=== PATIENT | male | born 1955 | race Caucasian/White ===

== ENCOUNTER 2016-04-09 12:55 | Outpatient (CLI) | payer MEDICAID | END 2016-04-09 12:56 | disposition home or self-care (01) | DX: E11.8 Type 2 diabetes mellitus with unspecified complications (principal); F32.9 Major depressive disorder, single episode, unspecified; Z12.5 Encounter for screening for malignant neoplasm of prostate ==

== ENCOUNTER 2016-10-01 21:09 | Emergency (ER) | payer MEDICAID ==
[2016-10-01 21:21] VITALS: BP 122/64
[2016-10-01] MEDS ORDERED: TETANUS/DIPHTHERIA/PERTUSSIS 0.5 ML SYRINGE IM ONE ×2 (21:32→21:47)
[2016-10-01] MEDS ORDERED: SULFAMETH/TRIMETH DS 800/160 MG TABLET PO STA (21:39)
[2016-10-01] MEDS ORDERED: CEPHALEXIN 250 MG Prepack 8 PO ONE ×2 (21:39→21:47)
[2016-10-01] MEDS ORDERED: oxyCODONE/ACET 5/325 Prepack 4 PO STA (21:39)
--- NOTE | 2016-10-01 21:43 | ED Physician Documentation ---
History of Present Illness - Stated complaint Stated Complaint: R BRIGHT PX - Chief complaint Chief Complaint: General - History obtained from History obtained from: Patient - History of Present Illness Timing: Other (Scratches right bright on a piece of wood a couple of days ago and today has increasing pain and redness without fevers. He is a long-standing diabetic.) Review of Systems Constitutional: denies: Fever, Chills Cardiac: denies: Chest pain / pressure, Palpitations Respiratory: denies: Dyspnea, Cough PD PAST MEDICAL HISTORY - Past Medical History Cardiovascular: High cholesterol Respiratory: Pneumonia, Other Endocrine/Autoimmune: Type 2 diabetes, HyPOthyroidism GI: GERD Psych: Depression, Anxiety - Past Surgical History Past Surgical History: Yes - Present Medications Home Medications: Ambulatory Orders Medication Instructions Recorded Confirmed Glucagon [Glucagen] 1 mg SUBQ ONCE PRN 12/10/13 07/03/15 Levothyroxine [Synthroid] 150 mcg PO DAILY 12/10/13 07/03/15 Lisinopril 2.5 mg PO DAILY 12/10/13 07/03/15 Lovastatin 40 mg PO QPM 12/10/13 07/03/15 raNITIdine [Zantac] 75 mg PO DAILY 12/10/13 07/03/15 Insulin Glargine,Hum.rec.anlog 21 units SUBQ QDDINNER 12/11/13 07/03/15 [Lantus] Aspirin [Adult Low Dose Aspirin EC] 81 mg PO DAILY 07/03/15 07/03/15 Bupropion HCl [Wellbutrin] 100 mg PO DAILY 07/03/15 07/03/15 Cholecalciferol (Vitamin D3) 50,000 unit PO Q7D 07/03/15 07/03/15 [Vitamin D] Duloxetine HCl [Cymbalta] 60 mg PO DAILY 07/03/15 07/03/15 Gabapentin 600 mg PO BID 07/03/15 07/03/15 Insulin Aspart [Novolog] 3 - 7 unit SQ ACHS 07/03/15 07/03/15 Cephalexin [Keflex] 500 mg PO QID #30 capsule 10/01/16 Oxycodone HCl/Acetaminophen 1 - 2 tab PO Q4H PRN #7 tablet 10/01/16 [Percocet 5-325 mg Tablet] Sulfamethoxazole/Trimethoprim 1 each PO BID 7 Days 10/01/16 [Sulfamethoxazole-Tmp Ds Tablet] - Allergies Allergies/Adverse Reactions: Allergies Allergy/AdvReac Type Severity Reaction Status Date / Time No Known Drug Allergies Allergy Verified 10/01/16 21:21 - Social History Does the pt smoke?: Yes Smoking Status: Current every day smoker Does the pt drink ETOH?: Yes Does the pt have substance abuse?: No PD ED PE NORMAL - Vitals Vital signs reviewed: Yes - General General: Alert and oriented X 3, No acute distress - Extremities Extremities: Other (On the anterior right bright there is a linear abrasion with a small amount of purulent material obtained and sent for culture with mild surrounding cellulitis, no obvious rest pain or pain with passive range of motion.) - Neuro Neuro: Alert and oriented X 3, Normal speech - Psych Psych: Normal mood, Normal affect Results - Vitals Vitals: Vital Signs - 24 hr 10/01/16 21:18 Temperature 36.6 C Heart Rate 91 Respiratory 18 Rate Blood Pressure 122/64 O2 Saturation 98 Oxygen O2 Source Room air PD MEDICAL DECISION MAKING - ED course ED course: The patient was counseled as to the diagnosis and need for follow-up. I counseled the patient with regard to signs and symptoms that would necessitate an urgent reevaluation in the emergency department. They understand they are welcome to return at any time if worse or if not improving as expected. This document was made in part using voice recognition software. While efforts are made to proofread this documents, sound alike and grammatical errors may occur. Departure - Departure Disposition: 01 Home, Self Care Clinical Impression: Cellulitis of leg without foot, right Condition: Good Record reviewed to determine appropriate education?: Yes Instructions: Cellulitis Dc Prescriptions: Cephalexin [Keflex] 500 mg PO QID #30 capsule Oxycodone HCl/Acetaminophen [Percocet 5-325 mg Tablet] 1 - 2 tab PO Q4H PRN #7 tablet PRN Reason: Pain Sulfamethoxazole/Trimethoprim [Sulfamethoxazole-Tmp Ds Tablet] 1 each PO BID 7 Days Comments: We are performing a wound culture, the results should be done in 48-72 hours. If antibiotic change is necessary we will call you. Return if worse in the meantime, especially if he develop increased pain, fevers, cannot keep down the medication. Otherwise follow-up with your physician in approximately 2-3 days. Follow-up with your physician in about 3 days for recheck, return if worse.
[2016-10-01] MEDS ORDERED: SULFAMETH/TRIMETH DS 800/160 MG TABLET PO ONE (21:46)
[2016-10-01] MEDS ORDERED: oxyCODONE/ACET 5/325 Prepack 4 PO ONE (21:46)
== END 2016-10-01 21:55 | disposition home or self-care (01) ==
LOC: ED 21:09
DX: L03.115 Cellulitis of right lower limb (principal); S80.811A Abrasion, right lower leg, initial encounter; E03.9 Hypothyroidism, unspecified; Z79.4 Long term (current) use of insulin; F17.200 Nicotine dependence, unspecified, uncomplicated; E11.9 Type 2 diabetes mellitus without complications; E78.00 Pure hypercholesterolemia, unspecified; Z23 Encounter for immunization; W45.8XXA Other foreign body or object entering through skin, initial encounter
CPT/HCPCS: 87070; 87181; 87205; 90471; 90715; 99282; 99283; A9270

== ENCOUNTER 2017-08-02 17:10 | Emergency (ER) | payer MEDICAID ==
[2017-08-02 17:31] VITALS: BP 137/73
--- NOTE | 2017-08-02 18:42 | XRAY Preliminary Report ---
Exam: XR HIP W/PELVIS 2-3V RT IMPRESSION: 1. Suspect remote osteochondral injury superior attachment of the right hip joint capsule. 2. L4-L5 fusion. 3. No acute bony abnormality. [facility] SITE ID: [id number]
--- NOTE | 2017-08-02 18:53 | XRAY Report ---
EXAM: RIGHT HIP AND PELVIS RADIOGRAPHY EXAM DATE: 08/02/2017 06:28 PM. HISTORY: Fall. Right hip pain. COMPARISONS: CT abdomen and pelvis 05/20/2012. TECHNIQUE: 1 view of the pelvis and 1 view of the hip. FINDINGS: Bones: Normal. No fracture or bone lesion. Joints: Stable 1.5 x 1 cm subcortical sclerosis and cyst formation along the lateral aspect superior margin o f the right acetabular roof. This is most likely due to remote osteochondral injury. Hip joints otherwise unremarkable. L4-L5 fusion. Soft Tissues: Normal. No soft tissue swelling. IMPRESSION: 1. Suspect remote osteochondral injury superior attachment of the right hip joint capsule. 2. L4-L5 fusion. 3. No acute bony abnormality. [facility] Referring Provider Line: [phone] SITE ID: [id number]
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
[2017-08-02] MEDS ORDERED: oxyCODONE 5 MG TABLET PO STA (19:34)
[2017-08-02] MEDS ORDERED: NAPROXEN 250 MG TABLET PO STA (19:35)
== END 2017-08-02 20:06 | disposition home or self-care (01) ==
LOC: ED 17:10
DX: S00.03XA Contusion of scalp, initial encounter (principal); S30.0XXA Contusion of lower back and pelvis, initial encounter; S06.0X1A Concussion with loss of consciousness of 30 minutes or less, initial encounter; W18.09XA Striking against other object with subsequent fall, initial encounter; Y92.513 Shop (commercial) as the place of occurrence of the external cause; E03.9 Hypothyroidism, unspecified; E78.00 Pure hypercholesterolemia, unspecified; E11.9 Type 2 diabetes mellitus without complications; Z79.4 Long term (current) use of insulin; Z79.82 Long term (current) use of aspirin
CPT/HCPCS: 73502; 99281; 99283; A9270

== ENCOUNTER 2018-02-06 02:32 | Inpatient (IN) | payer MEDICAID ==
--- NOTE | 2018-02-06 03:35 | XRAY Report ---
Reason: left chest pain after falling. Procedure Date: 02/06/2018 Accession Number: [id number] / [id number] Procedure: XR - Ribs w/PA Chest LT CPT Code: FULL RESULT: EXAM: LEFT RIB RADIOGRAPHY EXAM DATE: 02/06/2018 03:06 AM. CLINICAL HISTORY: Left chest pain after falling. COMPARISON: 10/26/2012 11:13 AM. TECHNIQUE: 1 view of the chest and 4 views of the ribs. FINDINGS: Bones: Displaced fourth through sixth rib fractures at least. Lungs: Moderate to large left pneumothorax measuring up to 5 cm from the apex. Small left pleural effusion. Right lung grossly clear. Mediastinum: No mediastinal shift. Heart size normal. Pneumomediastinum present tracking up to the neck. Other: Soft tissue gas present in the left hemithorax. IMPRESSION: 1. Moderate to large left pneumothorax. Trace left hemothorax. No mediastinal shift. 2. Displaced left fourth through sixth rib fractures at least. 3. Pneumomediastinum is presumably dissecting from the pneumothorax. [facility] The above findings were discussed with Andre Mosley by Dr. Kehinde Ann at 03:34 hrs on 02/06/18.
[2018-02-06] MEDS ORDERED: fentaNYL 100 MCG/2 ML VIAL IVP STA (03:36)
[2018-02-06] MEDS ORDERED: LIDOCAINE MPF 1%-EPI 1:200000 30 ML VIAL SUBQ STA (03:38)
--- NOTE | 2018-02-06 04:46 | XRAY Report ---
Reason: s/p chest tube placement Procedure Date: 02/06/2018 Accession Number: [id number] / [id number] Procedure: XR - Chest 1 View X-Ray CPT Code: 64780 FULL RESULT: EXAM: CHEST RADIOGRAPHY EXAM DATE: 02/06/2018 04:20 AM. CLINICAL HISTORY: Status post chest tube placement. Pneumothorax follow-up. COMPARISON: RIBS W/PA CHEST LT 02/06/2018 3:06 AM. TECHNIQUE: 1 view. FINDINGS: Lungs/Pleura: New left chest tube present. Decrease in left pneumothorax, now small. Small left effusion not as well-seen currently. Right lung grossly clear. Mediastinum: No mediastinal shift. Normal heart size. Pneumomediastinum again noted. Other: Grossly stable soft tissue gas in the neck and left chest wall. Multiple left rib fractures as seen earlier. IMPRESSION: Significant improvement in left pneumothorax post chest tube placement. [facility]
--- NOTE | 2018-02-06 04:48 | ED Physician Documentation ---
PD HPI Fall - Stated complaint Stated Complaint: SIDE PX/FALL - Chief complaint Chief Complaint: Trauma Ch/Bk - History obtained from History obtained from: Patient - History of Present Illness Mechanism of injury: Tripped Fall distance: Standing position Where injury occurred: Home Timing - onset: How many hours ago (6) Injury(ies) location: Chest Quality of pain: Pain Associated symptoms: Dyspnea Worsens with: Movement, Palpation, Other (deep inspiration) - Additional information Additional information: The patient is a 62-year-old male who stumbled on his steps at home and fell, impacting his left chest and left thigh when he fell. The incident occurred about 6 hours prior to arrival. He presents now because of progressively increasing pain on the left side of his chest. The pain is worse with movement or with respiratory inspiration. He denies abdominal pain, nausea or vomiting. He denies hitting his head or losing consciousness. He has been ambulatory since the incident occurred. Tetanus status is up-to-date. Past medical history is significant for insulin-dependent diabetes. Review of Systems Constitutional: denies: Fever Ears: denies: Tinnitus/ringing Nose: denies: Congestion Throat: denies: Sore throat Cardiac: reports: Chest pain / pressure. denies: Palpitations Respiratory: reports: Dyspnea (mild). denies: Cough GI: denies: Abdominal Pain, Nausea, Vomiting : denies: Dysuria, Incontinent Skin: reports: Abrasion (s) (left chest) Musculoskeletal: denies: Neck pain, Back pain, Joint pain Neurologic: denies: Focal weakness, Numbness, Head injury, LOC PD PAST MEDICAL HISTORY - Past Medical History Past Medical History: Yes Cardiovascular: High cholesterol Respiratory: Pneumonia, Other Neuro: Peripheral neuropathy Endocrine/Autoimmune: Type 2 diabetes, HyPOthyroidism GI: GERD Psych: Depression, Anxiety - Past Surgical History Past Surgical History: Yes - Present Medications Home Medications: Ambulatory Orders Medication Instructions Recorded Confirmed Glucagon [Glucagen] 1 mg SUBQ ONCE PRN 12/10/13 07/03/15 Levothyroxine [Synthroid] 150 mcg PO DAILY 12/10/13 07/03/15 Lisinopril 2.5 mg PO DAILY 12/10/13 07/03/15 Aspirin [Adult Low Dose Aspirin EC] 81 mg PO DAILY 07/03/15 07/03/15 Duloxetine HCl [Cymbalta] 60 mg PO DAILY 07/03/15 07/03/15 Gabapentin 600 mg PO BID 07/03/15 07/03/15 Insulin Aspart [Novolog] 3 - 7 unit SQ ACHS 07/03/15 07/03/15 - Allergies Allergies/Adverse Reactions: Allergies Allergy/AdvReac Type Severity Reaction Status Date / Time No Known Drug Allergies Allergy Verified 02/06/18 02:39 - Social History Does the pt smoke?: Yes Smoking Status: Current every day smoker Does the pt drink ETOH?: Yes Does the pt have substance abuse?: No Substance Use and Type: Marijuana - Immunizations Immunizations are current?: Yes - POLST Patient has POLST: No PD ED PE NORMAL - Vitals Vital signs reviewed: Yes (normal) - General General: Alert and oriented X 3, Well developed/nourished - HEENT HEENT: Atraumatic, EOMI, Pharynx benign - Neck Neck: No bony TTP, No adenopathy, No JVD, Other (No tracheal deviation.) - Cardiac Cardiac: RRR - Respiratory Respiratory: Other (Crepitus to palpation of the left chest wall. Decreased breath sounds on the left compared to the right.) - Abdomen Abdomen: Soft, Non tender - Back Back: No CVA TTP, No spinal TTP - Derm Derm: No rash - Extremities Extremities: No tenderness to palpate, Normal ROM s pain, No edema, No calf tenderness / cord - Neuro Neuro: Alert and oriented X 3, No motor deficit, No sensory deficit Results - Vitals Vitals: Vital Signs - 24 hr 02/06/18 02/06/18 02/06/18 02:34 03:49 04:10 Temperature 36.5 C Heart Rate 98 99 99 Respiratory 16 18 22 Rate Blood Pressure 116/60 141/81 H 128/75 O2 Saturation 100 93 93 02/06/18 02/06/18 02/06/18 04:17 04:28 04:50 Temperature Heart Rate 101 H 99 93 Respiratory 15 15 14 Rate Blood Pressure 143/79 H 127/74 126/71 O2 Saturation 95 96 93 Oxygen O2 Source Room air - Labs Labs: Laboratory Tests 02/06/18 02/06/18 03:50 03:50 WBC 12.8 H RBC 3.94 L Hgb 13.1 L Hct 39.2 L MCV 99.4 H MCH 33.2 H MCHC 33.4 RDW 14.8 Plt Count 340 MPV 6.8 L Neut # (Auto) 10.6 H Lymph # (Auto) 1.2 L [place] # (Auto) 0.9 Eos # (Auto) 0.1 Baso # (Auto) 0.0 Absolute Nucleated RBC 0.00 Nucleated RBC % 0.0 Sodium 128 L Potassium 4.6 Chloride 95 L Carbon Dioxide 24 Anion Gap 9.0 BUN 14 Creatinine 0.9 Estimated GFR (MDRD) 85 L Glucose 277 H Calcium 8.4 L Total Bilirubin 0.5 AST 68 H ALT 40 Alkaline Phosphatase 56 Total Protein 6.4 L Albumin 3.9 Globulin 2.5 Albumin/Globulin Ratio 1.6 Lipase 19 L Ethyl Alcohol 98.2 - Rads (name of study) PA chest with left ribs Radiology: Prelim report reviewed, EMP read contemporaneously, See rad report (1) Moderate to large left pneumothorax. Trace left hemothorax. No mediastinal shift. 2) Displaced left fourth through sixth rib fractures at least. 3) Pneumomediastinum is presumably dissecting from the pneumothorax.) Post chest tube placement Radiology: Prelim report reviewed, EMP read contemporaneously, See rad report (Significant improvement in left pneumothorax post chest tube placement.) Procedures - Chest Tube (location) left 4th anterior axillary line Chest tube preparation: Consent obtained, Time out completed, Sterile prep and drape Chest tube location: Left, Intercostal space - enter (4th), Anterior axillary line Chest tube anesthesia: Lidocaine, CC (enter) (3) Chest tube size: 14 Chest tube return: Air, Other (Suctioned 400 mL air.) Chest tube after care: Confirmed with xray, Pt tolerated well PD MEDICAL DECISION MAKING - ED course Complexity details: reviewed results, re-evaluated patient, considered differential, d/w patient, d/w family, d/w care consultant ED course: The patient's presentation is significant for left-sided pneumothorax, with rib fractures 4 through 6, caused by falling on his steps at home. There is minimal hemothorax. The only other injury detected is contusion to the left anterior thigh. Treatment in the emergency department included reexpansion of the left lung by insertion of a UreSil Thora vent. Postprocedure chest x-ray reveals significant improvement in the left pneumothorax. I discussed his condition with Dr. Bello, general surgeon data collection technician, and Dr. Kearney, the hospitalist. Dr. Kearney accepts the patient for further evaluation and treatment, and Dr. Bello will consult. Departure - Departure Disposition: ED Place in Observation Clinical Impression: Traumatic pneumothorax Qualifiers: Encounter type: initial encounter Qualified Code(s): S27.0XXA - Traumatic pneumothorax, initial encounter Multiple rib fractures Qualifiers: Encounter type: initial encounter Fracture type: closed Laterality: left Qualified Code(s): S22.42XA - Multiple fractures of ribs, left side, initial encounter for closed fracture Diabetes mellitus with hyperglycemia Qualifiers: Diabetes mellitus type: type 2 Diabetes mellitus nursing home insulin use: with ferry terminal agent use Qualified Code(s): E11.65 - Type 2 diabetes mellitus with hyperglycemia; Z79.4 - shelter (current) use of insulin Condition: Stable Discharge Date/Time: 02/06/18 06:08
[2018-02-06 04:52] LABS: BASOPHILS % (AUTO) 0.3 %; EOSINOPHILS # (AUTO) 0.1 10^3/uL (0.0-0.7); EOSINOPHILS % (AUTO) 0.4 %; HGB - HEMOGLOBIN 13.1 g/dL (14.0-18.0); LYMPHOCYTES # (AUTO) 1.2 10^3/uL (1.5-3.5); LYMPHOCYTES % (AUTO) 9.4 %; MEAN CORPUSCULAR HEMOGLOBIN 33.2 pg (27.0-31.0); MEAN CORPUSCULAR HGB CONC 33.4 g/dL (32.0-36.0); MEAN CORPUSCULAR VOLUME 99.4 fL (80.0-94.0); MEAN PLATELET VOLUME 6.8 fL (7.4-11.4); MONOCYTES # (AUTO) 0.9 10^3/uL (0.0-1.0); MONOCYTES % (AUTO) 6.7 %; NEUTROPHILS # (AUTO) 10.6 10^3/uL (1.5-6.6); NEUTROPHILS % (AUTO) 83.2 %; PLT - PLATELET COUNT 340 10^3/uL (130-450); RED BLOOD COUNT 3.94 10^6/uL (4.70-6.10); RED CELL DISTRIBUTION WIDTH 14.8 % (12.0-15.0); WHITE BLOOD COUNT 12.8 x10^3/uL (4.8-10.8)
[2018-02-06 05:02] LABS: ALBUMIN 3.9 g/dL (3.2-5.5); ALBUMIN/GLOBULIN RATIO 1.6 (1.0-2.2); BILIRUBIN,TOTAL 0.5 mg/dL (0.2-1.0); CALCIUM 8.4 mg/dL (8.5-10.3); CREATININE 0.9 mg/dL (0.6-1.2); TOTAL PROTEIN 6.4 g/dL (6.7-8.2)
[2018-02-06] MEDS ORDERED: ONDANSETRON 4 MG/2 ML VIAL IVP PRN (05:20)
[2018-02-06] MEDS ORDERED: ACETAMINOPHEN 325 MG TABLET PO PRN (05:20)
--- NOTE | 2018-02-06 05:30 | HISTORY & PHYSICAL EXAMINATION ---
Chief Complaint - Chief Complaint Chief Complaint: Rib pain History of Present Illness - Admitted From Admitted From:: ED - History Obtained From Records Reviewed: ED History obtained from: Patient and Dr Mosley Exam Limitations: None - History of Present Illness HPI Comment/Other: Mr Lassiter is a 62 yo male with PMH of type 1 DM on insulin pump, hypothyroid, and depression who was walking out of his porchi last evening approximately 8 pm when he tripped over his slppers and landed on concrete steps hitting his left side. He denied any syncope or near syncope and denies hitting his head. He had pain in the L chest wall and ribs, but tried to manage it at home with tylenol through the night but when the pain became worse he presented to the ED earlier this morning for evaluation. In the ED, he had a chest xray which showed a L sided pneumothorax and pneumomediastinum along with fractures of the L ribs 4-6. Dr Mosley put in a thoraseal in the ED which was followed by a repeat cxr showing rexpansion of the pneumothorax. Based on the significance of the pneumothorax pt will be placed in observation for pain control. Also, Dr Bello has been notified and will follow pt in the morning. History - Past Medical History Cardiovascular: reports: High cholesterol Respiratory: reports: Pneumonia, Other Neuro: reports: Peripheral neuropathy Endocrine/Autoimmune: reports: Type 1 diabetes (on inulin pump), Type 2 diabetes, HyPOthyroidism GI: reports: GERD Psych: reports: Depression, Anxiety Musculoskeletal: reports: None MRSA Hx?: No - Family & Social History Family History: Mother: Mental Illness, Father: CAD Living arrangement: At home Living Situation: With spouse/s.o. Social History Notes: Pt lives with significant other, engaged to be . Has two adult kids with whom he does not keep in regular touch. - Substance History Use: Uses substance without health or social issues: Tobacco, Cannabis - POLST Patient has POLST: No POLST Status: Full Code Meds/Allgy - Home Medications Home Medications: Ambulatory Orders Medication Instructions Recorded Confirmed Glucagon [Glucagen] 1 mg SUBQ ONCE PRN 12/10/13 07/03/15 Levothyroxine [Synthroid] 150 mcg PO DAILY 12/10/13 07/03/15 Lisinopril 2.5 mg PO DAILY 12/10/13 07/03/15 Aspirin [Adult Low Dose Aspirin EC] 81 mg PO DAILY 07/03/15 07/03/15 Duloxetine HCl [Cymbalta] 60 mg PO DAILY 07/03/15 07/03/15 Gabapentin 600 mg PO BID 07/03/15 07/03/15 Insulin Aspart [Novolog] 3 - 7 unit SQ ACHS 07/03/15 07/03/15 - Allergies Allergies/Adverse Reactions: Allergies Allergy/AdvReac Type Severity Reaction Status Date / Time No Known Drug Allergies Allergy Verified 02/06/18 02:39 Review of Systems - Constitutional Constitutional: denies: Fatigue - Eyes Eyes: denies: Blurred vision - Cardiovascular Cariovascular: reports: Chest pain. denies: Irregular heart rate, Lightheadedness - Respiratory Respiratory: reports: Pleuritic pain. denies: Cough, Wheezing, SOB at rest, SOB with exertion - Gastrointestinal Gastrointestinal: denies: Abdominal pain, Constipation, Diarrhea, Change in bowel habits - Musculoskeletal Musculoskeletal: reports: Muscle pain, Stiffness - Neurological Neurological: denies: General weakness, Headache, Dizziness - Psychiatric Psychiatric: reports: Depression - All Other Systems All Other Systems: reports: Reviewed and negative Prior Level of Functionality: Independent Exam - Vital Signs Reviewed Vital Signs: Yes Vital Signs: Vital Signs x48h Temp Pulse Resp BP Pulse Ox 02/06/18 04:50 93 14 126/71 93 02/06/18 04:28 99 15 127/74 96 02/06/18 04:17 101 H 15 143/79 H 95 02/06/18 04:10 99 22 128/75 93 02/06/18 03:49 99 18 141/81 H 93 02/06/18 02:34 36.5 C 98 16 116/60 100 Vital Signs 02/06/18 02/06/18 02/06/18 02:34 03:49 04:10 Temperature 36.5 C Heart Rate 98 99 99 Respiratory 16 18 22 Rate Blood Pressure 116/60 141/81 H 128/75 O2 Saturation 100 93 93 02/06/18 02/06/18 02/06/18 04:17 04:28 04:50 Temperature Heart Rate 101 H 99 93 Respiratory 15 15 14 Rate Blood Pressure 143/79 H 127/74 126/71 O2 Saturation 95 96 93 - Physical Exam General Appearance: positive: No acute distress Eyes Bilateral: positive: Normal inspection ENT: positive: ENT inspection nml Neck: positive: Nml inspection Respiratory: positive: No respiratory distress, Breath sounds nml, Other (Chest pain pain and tenderness, L side, upper chest) Cardiovascular: positive: Regular rate & rhythm, No murmur, No gallop Peripheral Pulses: positive: 2+ Abdomen: positive: Non-tender Back: positive: Nml inspection Skin: positive: Color nml, No rash. negative: Laceration (cm), Puncture wound Extremities: positive: No pedal edema Conclusion/Plan - Problem List (1) Traumatic pneumothorax Conclusion/Plan: S/p successful re-expansion with Thoraseal. Will monitor for breathing compromise, control pain and repeat cxr later today. Dr Bello is notified by ED physician but at this point not likely to need a chest tube. Will start with percocet and dilaudid for pain and follow Dr Bello recommendations. Qualifiers: Encounter type: initial encounter Qualified Code(s): S27.0XXA - Traumatic pneumothorax, initial encounter (2) Multiple rib fractures Conclusion/Plan: As above, will control pain with oral and IV pain meds as needed, and d/c possible later today or tomorrow based on pain med requirement Qualifiers: Encounter type: initial encounter Fracture type: closed Laterality: left Qualified Code(s): S22.42XA - Multiple fractures of ribs, left side, initial encounter for closed fracture (3) Type 1 diabetes mellitus on insulin therapy Conclusion/Plan: Pt has a pump at home and it is not functioning right now. He's expecting to receive a new one tomorrow. He estimates about 15 U by pump per day, plus novolog as needed. Will start with 10 U Lantus here and add corrective siding scale. (4) Hypothyroidism Conclusion/Plan: Stable - cont home levothyroxine. Qualifiers: Hypothyroidism type: unspecified Qualified Code(s): E03.9 - Hypothyroidism, unspecified (5) Depression Conclusion/Plan: Stable, cont home cymbalta Qualifiers: Depression Type: major depressive disorder Major depression recurrence: single episode Active/Remission status: currently active Major depression episode severity: moderate Qualified Code(s): F32.1 - Major depressive disorder, single episode, moderate (6) Polyneuropathy Conclusion/Plan: Pt takes gabapentin at home. He denies pain now, and feels comfortable to skip this today. Given the pain meds on board, and risk of hypoxia with PTX, it is reasonable to hold this for now. - Lab Results Fish Bones: 02/06/18 03:50 02/06/18 03:50 - Diagnostic Imaging Results Diagnostic Imaging Results: positive: Prelim report reviewed, Final report reviewed Core Measures - Anticipated LOS I expect patient to be DC'd or transferred within 96 hours.: Yes - DVT/VTE - Prophylaxis VTE/DVT Device ordered at admit?: No Not Ordered - Low Risk: Low Risk Not Ordered - Medical Reason: Not indicated
[2018-02-06] MEDS: HYDROcod/ACETAM 5/325 MG TABLET PO PRN ×3 (06:25→20:50)
[2018-02-06] MEDS: LEVOTHYROXINE 75 MCG TABLET PO SCH (06:26)
[2018-02-06] MEDS: SODIUM CHLORIDE FLUSH 0.9% 10 ML SYRINGE IVP PRN ×2 (06:30→11:08)
[2018-02-06] MEDS: INSULIN ASPART 300 UNIT/3 ML PEN SUBQ SCH ×4 (07:47→20:46)
[2018-02-06] MEDS: INSULIN GLARGINE 300 UNIT/3 ML PEN SUBQ SCH (08:34)
[2018-02-06] MEDS: LISINOPRIL 5 MG TABLET PO SCH (08:36)
[2018-02-06] MEDS: DULoxetine 30 MG CAPSULE PO SCH (08:36)
[2018-02-06] MEDS: POLYETHYLENE GLYCOL 3350 17 GM PACKET PO SCH (08:41)
[2018-02-06] MEDS ORDERED: NON FORMULARY MED (Duloxetine Hcl [Cymbalta] 60 MG) PO SCH (09:00)
[2018-02-06 09:11] LABS: BASOPHILS # (AUTO) 0.1 10^3/uL (0.0-0.1); BASOPHILS % (AUTO) 0.4 %; EOSINOPHILS % (AUTO) 0.1 %; HGB - HEMOGLOBIN 13.8 g/dL (14.0-18.0); LYMPHOCYTES # (AUTO) 0.8 10^3/uL (1.5-3.5); LYMPHOCYTES % (AUTO) 5.2 %; MEAN CORPUSCULAR HEMOGLOBIN 33.6 pg (27.0-31.0); MEAN CORPUSCULAR HGB CONC 34.4 g/dL (32.0-36.0); MEAN CORPUSCULAR VOLUME 97.6 fL (80.0-94.0); MEAN PLATELET VOLUME 6.3 fL (7.4-11.4); MONOCYTES # (AUTO) 0.7 10^3/uL (0.0-1.0); MONOCYTES % (AUTO) 4.7 %; NEUTROPHILS # (AUTO) 14.1 10^3/uL (1.5-6.6); NEUTROPHILS % (AUTO) 89.6 %; PLT - PLATELET COUNT 348 10^3/uL (130-450); RED CELL DISTRIBUTION WIDTH 14.5 % (12.0-15.0); WHITE BLOOD COUNT 15.7 x10^3/uL (4.8-10.8)
[2018-02-06 09:28] LABS: ALBUMIN/GLOBULIN RATIO 1.7 (1.0-2.2); BILIRUBIN,TOTAL 1.1 mg/dL (0.2-1.0); CALCIUM 8.3 mg/dL (8.5-10.3); CREATININE 0.9 mg/dL (0.6-1.2); MAGNESIUM 1.9 mg/dL (1.7-2.8); PHOSPHORUS 2.3 mg/dL (2.5-4.6); TOTAL PROTEIN 6.3 g/dL (6.7-8.2)
[2018-02-06 09:30] LABS: INR 0.9 (0.8-1.2); PT - PROTHROMBIN TIME 10.2 secs (9.9-12.6)
[2018-02-06 09:35] LABS: HB2 TOTAL 13.8 g/dL; HEMOGLOBIN A1C 0.65 g/dL; HEMOGLOBIN A1C % 6.5 % (4.6-6.2)
--- NOTE | 2018-02-06 09:35 | CONSULTATION NOTE ---
Referring Provider Name of Referring Provider:: Dr. Kearney Consult Date: 02/06/18 Chief Complaint - Chief Complaint Chief Complaint: rib fx and pneumothorax s/p fall History of Present Illness - Admitted From Admitted From:: ER - History Obtained From Records Reviewed: yes History obtained from: pt, records Exam Limitations: none - History of Present Illness HPI Comment/Other: 62 yo male with IDDM and diabetic peripheral neuropathy who slipped and fell last night while climbing wooden steps onto his deck, striking his left lateral chest wall on the steps. He had been drinking alcohol and smoking marijuana.There was no LOC and he denies other injuries, including no head or neck pain, abd pain, or extremity pain. Because of worsening chest pain he presented to the ER early this morning and was evaluated with chest films showing fractures of left ribs 4-6 and a moderate left pneumothorax, without evidence of significant hemothorax. He was treated with a Baldemar-Close pleural catheter which was aspirated and then placed to flutter valve status with f/u C XR showing full expansion of the left lung. He was admitted for pain control and surgical consultation. He currently c/o left sided chest pain but no dyspnea or other c/o. History - Past Medical History Cardiovascular: reports: High cholesterol Respiratory: reports: Pneumonia, Other Neuro: reports: Peripheral neuropathy Endocrine/Autoimmune: reports: Type 2 diabetes, HyPOthyroidism GI: reports: GERD Psych: reports: Depression, Anxiety Musculoskeletal: reports: None MRSA Hx?: No - Family & Social History Family History: Mother: Mental Illness, Father: CAD Living arrangement: At home Living Situation: With spouse/s.o. Social History Notes: Pt lives with significant other, engaged to be . Has two adult kids with whom he does not keep in regular touch. - Substance History Use: Uses substance without health or social issues: Tobacco (5 cigarettes/day), Alcohol (3 drinks/day), Cannabis (daily) - POLST Patient has POLST: No POLST Status: Full Code Meds/Allgy - Home Medications Home Medications: Ambulatory Orders Medication Instructions Recorded Confirmed Glucagon [Glucagen] 1 mg SUBQ ONCE PRN 12/10/13 07/03/15 Levothyroxine [Synthroid] 150 mcg PO DAILY 12/10/13 07/03/15 Lisinopril 2.5 mg PO DAILY 12/10/13 07/03/15 Aspirin [Adult Low Dose Aspirin EC] 81 mg PO DAILY 07/03/15 07/03/15 Duloxetine HCl [Cymbalta] 60 mg PO DAILY 07/03/15 07/03/15 Gabapentin 600 mg PO BID 07/03/15 07/03/15 Insulin Aspart [Novolog] 3 - 7 unit SQ ACHS 07/03/15 07/03/15 - Allergies Allergies/Adverse Reactions: Allergies Allergy/AdvReac Type Severity Reaction Status Date / Time No Known Drug Allergies Allergy Verified 02/06/18 02:39 Review of Systems - Hematologic/Lymphatic Hematologic/Lymphatic: denies: Blood clots, Bleeding tendencies Exam - Vital Signs Reviewed Vital Signs: Yes Vital Signs: Vital Signs x48h Temp Pulse Pulse Resp BP BP Pulse Ox 02/06/18 07:42 36.7 C 97 20 152/74 H 95 02/06/18 06:00 36.9 C 100 16 137/65 H 98 02/06/18 05:54 102 H 16 118/64 97 02/06/18 04:50 93 14 126/71 93 02/06/18 04:28 99 15 127/74 96 02/06/18 04:17 101 H 15 143/79 H 95 02/06/18 04:10 99 22 128/75 93 02/06/18 03:49 99 18 141/81 H 93 02/06/18 02:34 36.5 C 98 16 116/60 100 - Physical Exam General Appearance: positive: Alert, Moderate distress (c/o left sided chest wall pain) Eyes Bilateral: positive: Conjunctivae nml, No scleral icterus ENT: positive: ENT inspection nml, Pharynx nml, No signs of dehydration Neck: positive: No JVD, Trachea midline. negative: Lymphadenopathy (R), Lymphadenopathy (L) Respiratory: positive: No respiratory distress, Breath sounds nml, Other (left lateral chest wall with soft tissue swelling, erythema/abrasion, crepitus, and focal tenderness; Baldemar-Close device on left anterior chest wall; button is fluctuating with respirations; equal breath sounds noted anteriorly). negative: Wheezes, Rales, Rhonchi Cardiovascular: positive: Regular rate & rhythm, No murmur, No gallop Abdomen: positive: Non-tender, No organomegaly, No distention. negative: Guarding, Rebound, Hepatomegaly, Splenomegaly, Mass Skin: positive: Color nml, No rash, Warm, Dry Extremities: positive: Non-tender, Full ROM, Nml appearance, No pedal edema. negative: Calf tenderness Neurologic/Psychiatric: positive: Oriented x3 Conclusion/Plan - Diagnosis Diagnosis: Traumatic rib fractures x 3 on the left. Left traumatic pneumothorax, s/p closed mini-tube thoracostomy, clinically doing well - Plan Plan: Observation, analgesia, pulmonary toilet, serial CXRs; will follow. Thanks, - Lab Results Fish Bones: 02/06/18 08:55 02/06/18 08:55 - Diagnostic Imaging Results Diagnostic Imaging Results: positive: Final report reviewed, Read independently Diagnostic Imaging Results Comments: See HPI
[2018-02-06] MEDS: SODIUM CHLORIDE 0.9% 1,000 ML IV SCH ×2 (10:57→19:06)
[2018-02-06] MEDS: SODIUM CHLORIDE FLUSH 0.9% 10 ML SYRINGE IVP SCH ×2 (12:12→16:42)
[2018-02-06 16:29] LABS: MUDS CUTOFF CONCENTRATIONS CUTOFF CONC BELOW:
[2018-02-06] MEDS: HYDROmorphone 1 MG/ML CARPUJECT IVP PRN (16:39)
[2018-02-06 16:45] LABS: AMPHETAMINE SCREEN,URINE NEGATIVE (NEGATIVE); BENZODIAZEPINES SCREEN, URINE NEGATIVE (NEGATIVE); COCAINE SCREEN URINE NEGATIVE (NEGATIVE); METHADONE SCREEN, URINE NEGATIVE (NEGATIVE); METHAMPHETAMINES SCREEN, URINE NEGATIVE (NEGATIVE); OPIATE SCREEN, URINE POSITIVE (NEGATIVE); OXYCODONE SCREEN, URINE NEGATIVE (NEGATIVE); PROPOXYPHENE SCREEN, URINE NEGATIVE (NEGATIVE); TRICYCLIC ANTIDEPRESSANT,URINE NEGATIVE (NEGATIVE)
[2018-02-06] MEDS ORDERED: LORazepam 0.5 MG TABLET PO PRN (18:52)
[2018-02-06] MEDS ORDERED: LORazepam 2 MG/ML VIAL IVP PRN (18:52)
[2018-02-07] MEDS: HYDROcod/ACETAM 5/325 MG TABLET PO PRN ×2 (00:52→06:04)
[2018-02-07] MEDS: SODIUM CHLORIDE FLUSH 0.9% 10 ML SYRINGE IVP SCH ×4 (00:54→23:36)
[2018-02-07] MEDS: HYDROmorphone 1 MG/ML CARPUJECT IVP PRN (03:29)
[2018-02-07] MEDS: SODIUM CHLORIDE FLUSH 0.9% 10 ML SYRINGE IVP PRN (03:30)
[2018-02-07] MEDS: SODIUM CHLORIDE 0.9% 1,000 ML IV SCH ×3 (03:30→22:40)
[2018-02-07 05:44] LABS: BASOPHILS % (AUTO) 0.2 %; EOSINOPHILS # (AUTO) 0.2 10^3/uL (0.0-0.7); HGB - HEMOGLOBIN 13.8 g/dL (14.0-18.0); LYMPHOCYTES # (AUTO) 1.3 10^3/uL (1.5-3.5); LYMPHOCYTES % (AUTO) 14.2 %; MEAN CORPUSCULAR HEMOGLOBIN 33.5 pg (27.0-31.0); MEAN CORPUSCULAR HGB CONC 33.1 g/dL (32.0-36.0); MEAN CORPUSCULAR VOLUME 101.3 fL (80.0-94.0); MEAN PLATELET VOLUME 6.4 fL (7.4-11.4); MONOCYTES # (AUTO) 0.6 10^3/uL (0.0-1.0); MONOCYTES % (AUTO) 6.7 %; NEUTROPHILS # (AUTO) 7.1 10^3/uL (1.5-6.6); NEUTROPHILS % (AUTO) 76.9 %; PLT - PLATELET COUNT 340 10^3/uL (130-450); RED BLOOD COUNT 4.12 10^6/uL (4.70-6.10); RED CELL DISTRIBUTION WIDTH 14.8 % (12.0-15.0); WHITE BLOOD COUNT 9.2 x10^3/uL (4.8-10.8)
[2018-02-07 05:59] LABS: ALBUMIN 3.5 g/dL (3.2-5.5); ALBUMIN/GLOBULIN RATIO 1.5 (1.0-2.2); BILIRUBIN,TOTAL 1.5 mg/dL (0.2-1.0); CALCIUM 8.3 mg/dL (8.5-10.3); CREATININE 0.8 mg/dL (0.6-1.2); MAGNESIUM 1.9 mg/dL (1.7-2.8); PHOSPHORUS 2.1 mg/dL (2.5-4.6); TOTAL PROTEIN 5.8 g/dL (6.7-8.2)
[2018-02-07] MEDS: LEVOTHYROXINE 75 MCG TABLET PO SCH (06:27)
[2018-02-07] MEDS: INSULIN ASPART 300 UNIT/3 ML PEN SUBQ SCH ×4 (08:09→21:07)
[2018-02-07] MEDS: INSULIN GLARGINE 300 UNIT/3 ML PEN SUBQ SCH (08:09)
[2018-02-07] MEDS: DULoxetine 30 MG CAPSULE PO SCH (08:11)
[2018-02-07] MEDS: LISINOPRIL 5 MG TABLET PO SCH (08:12)
[2018-02-07] MEDS: POLYETHYLENE GLYCOL 3350 17 GM PACKET PO SCH (08:13)
[2018-02-07] MEDS ORDERED: MULTIVITAMIN 10 ML, THIAMINE INJ 100 MG, FOLIC ACID INJ 1 MG in SODIUM CHLORIDE 0.9% 1,... IV SCH (09:00)
--- NOTE | 2018-02-07 09:10 | XRAY Report ---
Reason: f/u left ptx Procedure Date: 02/07/2018 Accession Number: [id number] / [id number] Procedure: XR - Chest 1 View X-Ray CPT Code: 30829 FULL RESULT: EXAM: CHEST RADIOGRAPHY EXAM DATE: 02/07/2018 08:51 AM. CLINICAL HISTORY: F/u left ptx. COMPARISON: CHEST 1 VIEW 02/06/2018 4:20 AM RIBS W/PA CHEST LT 02/06/2018 3:06 AM. TECHNIQUE: 1 view. FINDINGS: Lungs/Pleura: No evidence for enlarging left pneumothorax. No pleural air evident lateral to lingula or left lower lobe. It is difficult to exclude a small left apical pneumothorax, due to superimposed soft tissue emphysema. Mediastinum: Within exam limitations, the cardiomediastinal contour is normal. Other: Lateral left upper chest tube remains in place. Multiple displaced lateral left rib fractures. Large amount of soft tissue emphysema within left chest extending into left greater than right neck soft tissues. IMPRESSION: 1. No evidence for enlarging left pneumothorax. Cannot exclude the possibility of a small residual left apical pneumothorax. Evaluation is limited due to superimposed soft tissue emphysema overlying the left chest. Lateral left upper chest tube remains in position. 2. Displaced lateral left rib fractures. Consider CT to further characterize and exclude additional injury if clinically warranted. RADIA
--- NOTE | 2018-02-07 09:12 | PROVIDER PROGRESS NOTE ---
Assessment/Plan - Problem List (1) Traumatic pneumothorax Qualifiers: Encounter type: subsequent encounter Qualified Code(s): S27.0XXD - Traumatic pneumothorax, subsequent encounter Assessment/Plan: Doing well; lung fully expanded with no evidence of an air leak/bronchopleural fistula; Rec: continue observation on water seal x 24 more hours, then remove chest tube if continues to do well. (2) Multiple rib fractures Qualifiers: Encounter type: subsequent encounter Fracture type: closed Laterality: left Fracture healing: with routine healing Qualified Code(s): S22.42XD - Multiple fractures of ribs, left side, subsequent encounter for fracture with routine healing Assessment/Plan: Doing well; good pain control with IV and oral anagesics; satisfactory pulmonary function; Rec: transition to oral analgesics; increase activity; home tomorrow if continues to do well. - Current Meds Current Meds: Current Medications Generic Name Dose Route Start Last Admin Trade Name Freq PRN Reason Stop Dose Admin Hydrocodone Bitart/Acetaminophen 1 tab 02/06/18 05:20 02/07/18 06:04 [place] 5/325 PO 1 tab Q4HR PRN Administration Pain 5 to 7 Duloxetine HCl 60 mg 02/06/18 09:00 02/07/18 08:11 Cymbalta PO 60 mg DAILY RADHA Administration Hydromorphone HCl 1 mg 02/06/18 05:20 02/07/18 03:29 Dilaudid Inj Carp IVP 1 mg Q2HR PRN Administration Pain 8 to 10 Sodium Chloride 1,000 mls @ 125 mls/hr 02/06/18 11:00 02/07/18 03:30 Normal Saline 0.9% IV 125 mls/hr .Q8H RADHA Administration Insulin Aspart 1 - 9 unit 02/06/18 08:00 02/07/18 08:09 Novolog SUBQ 3 unit 0800,1200,1700,2100 RADHA Administration Protocol Insulin Glargine 10 unit 02/06/18 09:00 02/07/18 08:09 Lantus Solostar SUBQ 10 unit DAILY RADHA Administration Levothyroxine Sodium 150 mcg 02/06/18 07:00 02/07/18 06:27 Synthroid PO 150 mcg QDAC RADHA Administration Lisinopril 2.5 mg 02/06/18 09:00 02/07/18 08:12 Zestril PO 2.5 mg DAILY RADHA Administration Polyethylene Glycol 17 gm 02/06/18 09:00 02/07/18 08:13 Miralax PO 17 gm DAILY RADHA Administration Sodium Chloride 10 ml 02/06/18 05:20 02/07/18 03:30 Normal Saline Flush 0.9% IVP 10 ml PRN PRN Administration NEEDED PER PROVIDER ORDERS Sodium Chloride 10 ml 02/06/18 09:00 02/07/18 08:15 Normal Saline Flush 0.9% IVP Not Given 0100,0900,1700 RADHA - Lab Result Fish Bone Diagrams: 02/07/18 05:31 02/07/18 05:31 - Diagnostic Imaging Results Diagnostic Imaging Results: Read independently Diagnostic Imaging Results Comments: Upright portable CXR: full expansion of left lung; chest tube in good position; subcutaneous emphysema persists. - Additional Planning Condition/Complexity: Improved My Orders: My Active Orders 02/06/18 14:10 Chest Tube Care [RC] QSHIFT Plan Discussed with:: Patient Time Spent: 15-30 minutes Subjective - Subjective Patient Reports: Feeling Better, Chest Pain (better controlled at present; no dyspnea.) Objective Vital Signs: Vital Signs - 24 hr 02/06/18 02/06/18 02/06/18 12:24 16:16 21:00 Temperature 36.5 C 36.8 C 37.0 C Heart Rate [ 83 62 87 Brachial] Respiratory 18 18 18 Rate Blood Pressure 119/61 129/67 136/70 H [Left Brachial artery] Blood Pressure [Right Brachial artery] O2 Saturation 95 94 95 02/07/18 02/07/18 02/07/18 00:54 05:00 07:23 Temperature 36.7 C 36.4 C L 36.4 C L Heart Rate [ 84 88 82 Brachial] Respiratory 18 18 18 Rate Blood Pressure [Left Brachial artery] Blood Pressure 137/78 H 155/74 H 131/65 H [Right Brachial artery] O2 Saturation 98 97 97 Oxygen O2 Source Room air Oxygen Flow Rate 2 I&O (Last 24 Hrs): Intake and Output Totals x24h 02/05/18 02/06/18 02/07/18 23:59 23:59 23:59 Intake Total 1680 1000 Output Total 914 564 Balance 766 436 General: Alert, Oriented x3, Cooperative, Mild distress Neuro: Alert Respiratory: Breath sounds nml, Other (equal breath sounds; chest tube patent with fluctuations in water seal chamber with respiration; no air leak evident with coughing; minimal sanguinous drainage.) Abdomen: Soft, No tenderness Extremities: No edema, No tenderness/swelling - Results Results: Laboratory Results WBC 9.2 x10^3/uL (4.8-10.8) 02/07/18 05:31 RBC 4.12 10^6/uL (4.70-6.10) L 02/07/18 05:31 Hgb 13.8 g/dL (14.0-18.0) L 02/07/18 05:31 Hct 41.7 % (42.0-52.0) L 02/07/18 05:31 MCV 101.3 fL (80.0-94.0) H 02/07/18 05:31 MCH 33.5 pg (27.0-31.0) H 02/07/18 05:31 MCHC 33.1 g/dL (32.0-36.0) 02/07/18 05:31 RDW 14.8 % (12.0-15.0) 02/07/18 05:31 Plt Count 340 10^3/uL (130-450) 02/07/18 05:31 MPV 6.4 fL (7.4-11.4) L 02/07/18 05:31 Neut # (Auto) 7.1 10^3/uL (1.5-6.6) H 02/07/18 05:31 Lymph # (Auto) 1.3 10^3/uL (1.5-3.5) L 02/07/18 05:31 [place] # (Auto) 0.6 10^3/uL (0.0-1.0) 02/07/18 05:31 Eos # (Auto) 0.2 10^3/uL (0.0-0.7) 02/07/18 05:31 Baso # (Auto) 0.0 10^3/uL (0.0-0.1) 02/07/18 05:31 Absolute Nucleated RBC 0.01 x10^3/uL 02/07/18 05:31 Nucleated RBC % 0.1 /100WBC 02/07/18 05:31 PT 10.2 secs (9.9-12.6) 02/06/18 08:55 INR 0.9 (0.8-1.2) 02/06/18 08:55 APTT 27.1 secs (24.9-33.3) 02/06/18 08:55 Sodium 134 mmol/L (135-145) L 02/07/18 05:31 Potassium 4.6 mmol/L (3.5-5.0) 02/07/18 05:31 Chloride 101 mmol/L (101-111) 02/07/18 05:31 Carbon Dioxide 26 mmol/L (21-32) 02/07/18 05:31 Anion Gap 7.0 (6-13) 02/07/18 05:31 BUN 11 mg/dL (6-20) 02/07/18 05:31 Creatinine 0.8 mg/dL (0.6-1.2) 02/07/18 05:31 Estimated GFR (MDRD) 97 (>89) 02/07/18 05:31 Glucose 233 mg/dL (70-100) H 02/07/18 05:31 POC Whole Bld Glucose 210 mg/dL (70 - 100) H 02/07/18 07:18 Glycated Hemoglobin 6.5 % (4.6-6.2) H 02/06/18 09:06 Estim Average Glucose 140 (70-100) H 02/06/18 09:06 Lactic Acid 1.1 mmol/L (0.5-2.2) 02/07/18 05:31 Calcium 8.3 mg/dL (8.5-10.3) L 02/07/18 05:31 Phosphorus 2.1 mg/dL (2.5-4.6) L 02/07/18 05:31 Magnesium 1.9 mg/dL (1.7-2.8) 02/07/18 05:31 Total Bilirubin 1.5 mg/dL (0.2-1.0) H 02/07/18 05:31 GGT 43 IU/L (8-55) 02/06/18 08:55 AST 44 IU/L (10-42) H 02/07/18 05:31 ALT 34 IU/L (10-60) 02/07/18 05:31 Alkaline Phosphatase 61 IU/L (42-121) 02/07/18 05:31 Troponin I < 0.04 ng/mL (<0.49) 02/07/18 08:29 Total Protein 5.8 g/dL (6.7-8.2) L 02/07/18 05:31 Albumin 3.5 g/dL (3.2-5.5) 02/07/18 05:31 Globulin 2.3 g/dL (2.1-4.2) 02/07/18 05:31 Albumin/Globulin Ratio 1.5 (1.0-2.2) 02/07/18 05:31 Lipase 19 U/L (22-51) L 02/06/18 03:50 TSH 1.22 uIU/mL (0.34-5.60) 02/06/18 08:55 Urine Opiates Screen POSITIVE (NEGATIVE) H 02/06/18 13:00 Ur Oxycodone Screen NEGATIVE (NEGATIVE) 02/06/18 13:00 Urine Methadone Screen NEGATIVE (NEGATIVE) 02/06/18 13:00 Ur Propoxyphene Screen NEGATIVE (NEGATIVE) 02/06/18 13:00 Ur Barbiturates Screen NEGATIVE (NEGATIVE) 02/06/18 13:00 Ur Tricyclics Screen NEGATIVE (NEGATIVE) 02/06/18 13:00 Ur Phencyclidine Scrn NEGATIVE (NEGATIVE) 02/06/18 13:00 Ur Amphetamine Screen NEGATIVE (NEGATIVE) 02/06/18 13:00 U Methamphetamines Scrn NEGATIVE (NEGATIVE) 02/06/18 13:00 U Benzodiazepines Scrn NEGATIVE (NEGATIVE) 02/06/18 13:00 Urine Cocaine Screen NEGATIVE (NEGATIVE) 02/06/18 13:00 U Cannabinoids Screen POSITIVE (NEGATIVE) H 02/06/18 13:00 Ethyl Alcohol 98.2 mg/dL 02/06/18 03:50 - Procedures Procedures: Procedures COLONOSCOPY (12/11/13) ABX Reporting Has patient been on IV antibiotics over the past 48 hours?: No
[2018-02-07] MEDS: ACETAMINOPHEN 325 MG TABLET PO SCH ×3 (09:48→22:40)
[2018-02-07] MEDS: IBUPROFEN 600 MG TABLET PO SCH ×2 (09:48→18:13)
[2018-02-07] MEDS ORDERED: INSULIN GLARGINE 300 UNIT/3 ML PEN SUBQ ONE (11:00)
[2018-02-07] MEDS ORDERED: INSULIN ASPART 300 UNIT/3 ML PEN SUBQ ONE (12:45)
--- NOTE | 2018-02-07 12:52 | PROVIDER PROGRESS NOTE ---
Subjective - Prog Note Date Prog Note Date: 02/07/18 - Subjective Pt reports feeling: Improved Subjective: pt report his chest pain is better. pt denies shortness of breath, fever, chill. Current Medications - Current Medications Current Medications: Active Medications Acetaminophen (Tylenol) 650 mg PO Q6H [facility] Last Admin: 02/07/18 09:48 Dose: 650 mg Duloxetine HCl (Cymbalta) 60 mg PO DAILY [facility] Last Admin: 02/07/18 08:11 Dose: 60 mg Hydromorphone HCl (Dilaudid Inj Carp) 1 mg IVP Q2HR PRN PRN Reason: Pain 8 to 10 Last Admin: 02/07/18 03:29 Dose: 1 mg Sodium Chloride (Normal Saline 0.9%) 1,000 mls @ 125 mls/hr IV .Q8H [facility] Last Admin: 02/07/18 03:30 Dose: 125 mls/hr Multivitamins 10 ml/ Thiamine HCl 100 mg/ Folic Acid 1 mg/Sodium Chloride 1, 011.2 mls @ 100 mls/hr IV DAILY [facility] Last Admin: 02/07/18 09:33 Dose: 100 mls/hr Ibuprofen (Motrin) 600 mg PO Q6HR [facility] Last Admin: 02/07/18 09:48 Dose: 600 mg Insulin Aspart (Novolog) 2 - 10 unit SUBQ 0800,1200,1700,2100 [facility]; Protocol Insulin Glargine (Lantus Solostar) 15 unit SUBQ DAILY [facility] Levothyroxine Sodium (Synthroid) 150 mcg PO QDAC [facility] Last Admin: 02/07/18 06:27 Dose: 150 mcg Lisinopril (Zestril) 2.5 mg PO DAILY [facility] Last Admin: 02/07/18 08:12 Dose: 2.5 mg Lorazepam (Ativan) 2 mg PO Q1H PRN; Protocol PRN Reason: CIWA>8 Lorazepam (Ativan Inj (Vial)) 2 mg IVP Q30M PRN; Protocol PRN Reason: CIWA >8 Ondansetron HCl (Zofran Inj) 4 mg IVP Q6HR PRN PRN Reason: Nausea / Vomiting Oxycodone HCl (Roxicodone) 5 mg PO Q6H PRN PRN Reason: PAIN Polyethylene Glycol (Miralax) 17 gm PO DAILY [facility] Last Admin: 02/07/18 08:13 Dose: 17 gm Sodium Chloride (Normal Saline Flush 0.9%) 10 ml IVP PRN PRN PRN Reason: NEEDED PER PROVIDER ORDERS Last Admin: 02/07/18 03:30 Dose: 10 ml Sodium Chloride (Normal Saline Flush 0.9%) 10 ml IVP 0100,0900,1700 [facility] Last Admin: 02/07/18 08:15 Dose: Not Given Glucagon [Glucagen] 1 mg SUBQ ONCE PRN 12/10/13 Levothyroxine [Synthroid] 150 mcg PO DAILY 12/10/13 Lisinopril 2.5 mg PO DAILY 12/10/13 Aspirin [Adult Low Dose Aspirin EC] 81 mg PO DAILY 07/03/15 Duloxetine HCl [Cymbalta] 60 mg PO DAILY 07/03/15 Gabapentin 600 mg PO BID 07/03/15 Insulin Aspart [Novolog] 3 - 7 unit SQ ACHS 07/03/15 Objective - Vital Signs/Intake & Output Reviewed Vital Signs: Yes Vital Signs: Vital Signs x48h Temp Pulse Resp BP Pulse Ox 02/07/18 12:46 36.5 C 84 18 143/71 H 95 02/07/18 07:23 36.4 C L 82 18 131/65 H 97 02/07/18 05:00 36.4 C L 88 18 155/74 H 97 Intake & Output: Intake & Output 02/04/18 02/05/18 02/06/18 02/07/18 23:59 23:59 23:59 23:59 Intake Total 1680 1600 Output Total 914 564 Balance 766 1036 - Objective General Appearance: positive: No acute distress, Alert. negative: Lethargic Eyes Bilateral: positive: Normal inspection, PERRL, No lid inflammation, Conjunctivae nml ENT: positive: ENT inspection nml, Pharynx nml, No signs of dehydration. negative: Purulent nasal drainage, Pharyngeal erythema, Oral lesions Neck: positive: Nml inspection, Thyroid nml, No JVD, Trachea midline. negative: Thyromegaly, Lymphadenopathy (R), Lymphadenopathy (L), Stiff neck, Swelling/bruising, Tracheal deviation Respiratory: positive: No respiratory distress. negative: Wheezes, Rales, Rhonchi Cardiovascular: positive: Regular rate & rhythm, No murmur, No gallop. negative: Irregularly irregular, Extrasystoles, Tachycardia, Bradycardia, JVD present, Systolic murmur, Diastolic murmur Peripheral Pulses: 2+ Radial (R), 2+ Radial (L), 2+ Dorsalis pedis (R), 2+ Dorsalis pedis (L) Abdomen: positive: Non-tender, No organomegaly, Nml bowel sounds, No distention. negative: Tenderness, Guarding, Rebound Back: positive: Nml inspection. negative: CVA tenderness (R), CVA tenderness (L) Skin: positive: Color nml, No rash, Warm, Dry. negative: Cyanosis, Diaphoresis, Pallor Extremities: positive: Non-tender, Full ROM, Nml appearance. negative: Calf tenderness, Joint swelling, Harjit's sign/cords Neurologic/Psychiatric: positive: Oriented x3, Motor nml, Sensation nml, Mood/affect nml. negative: Weakness, Sensory loss, Facial droop, Slurred/abnml speech, Depressed mood/affect - Lab Results Fish Bones: 02/07/18 05:31 02/07/18 05:31 Other Labs: Lab Results x24hrs 02/07/18 02/07/18 02/07/18 Range/Units 11:19 08:29 07:18 WBC (4.8-10.8) x10^3/uL RBC (4.70-6.10) 10^6/uL Hgb (14.0-18.0) g/dL Hct (42.0-52.0) % MCV (80.0-94.0) fL MCH (27.0-31.0) pg MCHC (32.0-36.0) g/dL RDW (12.0-15.0) % Plt Count (130-450) 10^3/uL MPV (7.4-11.4) fL Neut # (Auto) (1.5-6.6) 10^3/uL Lymph # (Auto) (1.5-3.5) 10^3/uL [place] # (Auto) (0.0-1.0) 10^3/uL Eos # (Auto) (0.0-0.7) 10^3/uL Baso # (Auto) (0.0-0.1) 10^3/uL Absolute Nucleated RBC x10^3/uL Nucleated RBC % /100WBC Sodium (135-145) mmol/L Potassium (3.5-5.0) mmol/L Chloride (101-111) mmol/L Carbon Dioxide (21-32) mmol/L Anion Gap (6-13) BUN (6-20) mg/dL Creatinine (0.6-1.2) mg/dL Estimated GFR (MDRD) (>89) Glucose (70-100) mg/dL POC Whole Bld Glucose 308 H 210 H (70 - 100) mg/dL Lactic Acid (0.5-2.2) mmol/L Calcium (8.5-10.3) mg/dL Phosphorus (2.5-4.6) mg/dL Magnesium (1.7-2.8) mg/dL Total Bilirubin (0.2-1.0) mg/dL AST (10-42) IU/L ALT (10-60) IU/L Alkaline Phosphatase (42-121) IU/L Troponin I < 0.04 (<0.49) ng/mL Total Protein (6.7-8.2) g/dL Albumin (3.2-5.5) g/dL Globulin (2.1-4.2) g/dL Albumin/Globulin Ratio (1.0-2.2) Urine Opiates Screen (NEGATIVE) Ur Oxycodone Screen (NEGATIVE) Urine Methadone Screen (NEGATIVE) Ur Propoxyphene Screen (NEGATIVE) Ur Barbiturates Screen (NEGATIVE) Ur Tricyclics Screen (NEGATIVE) Ur Phencyclidine Scrn (NEGATIVE) Ur Amphetamine Screen (NEGATIVE) U Methamphetamines Scrn (NEGATIVE) U Benzodiazepines Scrn (NEGATIVE) Urine Cocaine Screen (NEGATIVE) U Cannabinoids Screen (NEGATIVE) 02/07/18 02/07/18 02/07/18 Range/Units 05:31 05:31 05:31 WBC 9.2 (4.8-10.8) x10^3/uL RBC 4.12 L (4.70-6.10) 10^6/uL Hgb 13.8 L (14.0-18.0) g/dL Hct 41.7 L (42.0-52.0) % MCV 101.3 H (80.0-94.0) fL MCH 33.5 H (27.0-31.0) pg MCHC 33.1 (32.0-36.0) g/dL RDW 14.8 (12.0-15.0) % Plt Count 340 (130-450) 10^3/uL MPV 6.4 L (7.4-11.4) fL Neut # (Auto) 7.1 H (1.5-6.6) 10^3/uL Lymph # (Auto) 1.3 L (1.5-3.5) 10^3/uL [place] # (Auto) 0.6 (0.0-1.0) 10^3/uL Eos # (Auto) 0.2 (0.0-0.7) 10^3/uL Baso # (Auto) 0.0 (0.0-0.1) 10^3/uL Absolute Nucleated RBC 0.01 x10^3/uL Nucleated RBC % 0.1 /100WBC Sodium 134 L (135-145) mmol/L Potassium 4.6 (3.5-5.0) mmol/L Chloride 101 (101-111) mmol/L Carbon Dioxide 26 (21-32) mmol/L Anion Gap 7.0 (6-13) BUN 11 (6-20) mg/dL Creatinine 0.8 (0.6-1.2) mg/dL Estimated GFR (MDRD) 97 (>89) Glucose 233 H (70-100) mg/dL POC Whole Bld Glucose (70 - 100) mg/dL Lactic Acid 1.1 (0.5-2.2) mmol/L Calcium 8.3 L (8.5-10.3) mg/dL Phosphorus 2.1 L (2.5-4.6) mg/dL Magnesium 1.9 (1.7-2.8) mg/dL Total Bilirubin 1.5 H (0.2-1.0) mg/dL AST 44 H (10-42) IU/L ALT 34 (10-60) IU/L Alkaline Phosphatase 61 (42-121) IU/L Troponin I (<0.49) ng/mL Total Protein 5.8 L (6.7-8.2) g/dL Albumin 3.5 (3.2-5.5) g/dL Globulin 2.3 (2.1-4.2) g/dL Albumin/Globulin Ratio 1.5 (1.0-2.2) Urine Opiates Screen (NEGATIVE) Ur Oxycodone Screen (NEGATIVE) Urine Methadone Screen (NEGATIVE) Ur Propoxyphene Screen (NEGATIVE) Ur Barbiturates Screen (NEGATIVE) Ur Tricyclics Screen (NEGATIVE) Ur Phencyclidine Scrn (NEGATIVE) Ur Amphetamine Screen (NEGATIVE) U Methamphetamines Scrn (NEGATIVE) U Benzodiazepines Scrn (NEGATIVE) Urine Cocaine Screen (NEGATIVE) U Cannabinoids Screen (NEGATIVE) 02/06/18 02/06/18 02/06/18 Range/Units 20:20 16:39 13:00 WBC (4.8-10.8) x10^3/uL RBC (4.70-6.10) 10^6/uL Hgb (14.0-18.0) g/dL Hct (42.0-52.0) % MCV (80.0-94.0) fL MCH (27.0-31.0) pg MCHC (32.0-36.0) g/dL RDW (12.0-15.0) % Plt Count (130-450) 10^3/uL MPV (7.4-11.4) fL Neut # (Auto) (1.5-6.6) 10^3/uL Lymph # (Auto) (1.5-3.5) 10^3/uL [place] # (Auto) (0.0-1.0) 10^3/uL Eos # (Auto) (0.0-0.7) 10^3/uL Baso # (Auto) (0.0-0.1) 10^3/uL Absolute Nucleated RBC x10^3/uL Nucleated RBC % /100WBC Sodium (135-145) mmol/L Potassium (3.5-5.0) mmol/L Chloride (101-111) mmol/L Carbon Dioxide (21-32) mmol/L Anion Gap (6-13) BUN (6-20) mg/dL Creatinine (0.6-1.2) mg/dL Estimated GFR (MDRD) (>89) Glucose (70-100) mg/dL POC Whole Bld Glucose 216 H 132 H (70 - 100) mg/dL Lactic Acid (0.5-2.2) mmol/L Calcium (8.5-10.3) mg/dL Phosphorus (2.5-4.6) mg/dL Magnesium (1.7-2.8) mg/dL Total Bilirubin (0.2-1.0) mg/dL AST (10-42) IU/L ALT (10-60) IU/L Alkaline Phosphatase (42-121) IU/L Troponin I (<0.49) ng/mL Total Protein (6.7-8.2) g/dL Albumin (3.2-5.5) g/dL Globulin (2.1-4.2) g/dL Albumin/Globulin Ratio (1.0-2.2) Urine Opiates Screen POSITIVE H (NEGATIVE) Ur Oxycodone Screen NEGATIVE (NEGATIVE) Urine Methadone Screen NEGATIVE (NEGATIVE) Ur Propoxyphene Screen NEGATIVE (NEGATIVE) Ur Barbiturates Screen NEGATIVE (NEGATIVE) Ur Tricyclics Screen NEGATIVE (NEGATIVE) Ur Phencyclidine Scrn NEGATIVE (NEGATIVE) Ur Amphetamine Screen NEGATIVE (NEGATIVE) U Methamphetamines Scrn NEGATIVE (NEGATIVE) U Benzodiazepines Scrn NEGATIVE (NEGATIVE) Urine Cocaine Screen NEGATIVE (NEGATIVE) U Cannabinoids Screen POSITIVE H (NEGATIVE) ABX Reporting Has patient been on IV antibiotics over the past 48 hours?: No Sepsis Event Note (H) - Evaluation Current Stage of Sepsis: Ruled out Assessment/Plan - Problem List (1) Traumatic pneumothorax Impression: new CXR reveals stable and extended lung. pt report her pain is better co ntrolled. consulted with surgeon, will follow continue pain control continue vital monitor (2) Multiple rib fractures Multiple fractures of ribs, left side, initial encounter for closed fracture continue pain control (3) Type 1 diabetes mellitus on insulin therapy pt's glucose is elevated today start home lantus 15 unit daily continue slide scale, ACHS to monitor glucose (4) Hypothyroidism Conclusion/Plan: Stable - cont home levothyroxine. (5) Depression Conclusion/Plan: Stable, cont home cymbalta (6) Polyneuropathy Conclusion/Plan: stable, and continue gabapentin (7) alcohol abuse pt report he drunk alcohol frequently at home, it may be the cause of his fall continue multiple vitamins continue Ativan PRN continue CIWA protocol Qualifiers: Encounter type: subsequent encounter Qualified Code(s): S27.0XXD - Traumatic pneumothorax, subsequent encounter
[2018-02-07] MEDS: oxyCODONE 5 MG TABLET PO PRN (15:53)
[2018-02-08] MEDS: oxyCODONE 5 MG TABLET PO PRN ×3 (00:40→13:30)
[2018-02-08] MEDS: IBUPROFEN 600 MG TABLET PO SCH ×3 (00:41→11:37)
[2018-02-08] MEDS: ACETAMINOPHEN 325 MG TABLET PO SCH ×2 (04:15→09:56)
[2018-02-08 05:06] LABS: BASOPHILS % (AUTO) 0.2 %; EOSINOPHILS # (AUTO) 0.3 10^3/uL (0.0-0.7); EOSINOPHILS % (AUTO) 2.5 %; HGB - HEMOGLOBIN 13.3 g/dL (14.0-18.0); LYMPHOCYTES # (AUTO) 1.4 10^3/uL (1.5-3.5); LYMPHOCYTES % (AUTO) 13.2 %; MEAN CORPUSCULAR HEMOGLOBIN 33.3 pg (27.0-31.0); MEAN CORPUSCULAR HGB CONC 33.3 g/dL (32.0-36.0); MEAN CORPUSCULAR VOLUME 100.3 fL (80.0-94.0); MEAN PLATELET VOLUME 6.6 fL (7.4-11.4); MONOCYTES # (AUTO) 0.7 10^3/uL (0.0-1.0); MONOCYTES % (AUTO) 6.7 %; NEUTROPHILS # (AUTO) 8.3 10^3/uL (1.5-6.6); NEUTROPHILS % (AUTO) 77.4 %; PLT - PLATELET COUNT 312 10^3/uL (130-450); RED CELL DISTRIBUTION WIDTH 14.5 % (12.0-15.0); WHITE BLOOD COUNT 10.8 x10^3/uL (4.8-10.8)
[2018-02-08 05:20] LABS: ALBUMIN 3.1 g/dL (3.2-5.5); ALBUMIN/GLOBULIN RATIO 1.2 (1.0-2.2); BILIRUBIN,TOTAL 0.8 mg/dL (0.2-1.0); CALCIUM 7.9 mg/dL (8.5-10.3); CREATININE 0.9 mg/dL (0.6-1.2); TOTAL PROTEIN 5.6 g/dL (6.7-8.2)
[2018-02-08] MEDS: LEVOTHYROXINE 75 MCG TABLET PO SCH (06:43)
[2018-02-08] MEDS: SODIUM CHLORIDE 0.9% 1,000 ML IV SCH (06:43)
[2018-02-08] MEDS: INSULIN ASPART 300 UNIT/3 ML PEN SUBQ SCH ×2 (07:57→11:34)
[2018-02-08] MEDS ORDERED: INSULIN ASPART 300 UNIT/3 ML PEN SUBQ SCH (08:10)
--- NOTE | 2018-02-08 08:30 | PROVIDER PROGRESS NOTE ---
Assessment/Plan - Problem List (1) Traumatic pneumothorax Qualifiers: Encounter type: subsequent encounter Qualified Code(s): S27.0XXD - Traumatic pneumothorax, subsequent encounter Assessment/Plan: resolved; chest tube removed today; increase activity/ambulation as tolerated, continue pulmonary toilet. OK for d/c home from surgical standpoint with f/u my office next week. (2) Multiple rib fractures Qualifiers: Encounter type: subsequent encounter Fracture type: closed Laterality: left Fracture healing: with routine healing Qualified Code(s): S22.42XD - Multiple fractures of ribs, left side, subsequent encounter for fracture with routine healing Assessment/Plan: Healing well clinically; pain controlled now with oral analgesics (multi-modal); ok for d/c home from surgical standpoint; continue present meds; incentive spirometry at home; no strenuous activities; ambulation ok; f/u my office next week. - Current Meds Current Meds: Current Medications Generic Name Dose Route Start Last Admin Trade Name Freq PRN Reason Stop Dose Admin Acetaminophen 650 mg 02/07/18 10:00 02/08/18 04:15 Tylenol PO 650 mg Q6H [facility] Administration Duloxetine HCl 60 mg 02/06/18 09:00 02/07/18 08:11 Cymbalta PO 60 mg DAILY [facility] Administration Multivitamins 10 ml/ Thiamine 1,011.2 mls @ 100 mls/hr 02/07/18 09:00 02/07/18 20:30 HCl 100 mg/ Folic Acid 1 mg/ IV Infused Sodium Chloride DAILY [facility] Infusion Ibuprofen 600 mg 02/07/18 10:00 02/08/18 05:35 Motrin PO 600 mg Q6HR [facility] Administration Insulin Aspart 2 - 10 unit 02/07/18 17:00 02/08/18 07:57 Novolog SUBQ 8 unit 0800,1200,1700,2100 [facility] Administration Protocol Levothyroxine Sodium 150 mcg 02/06/18 07:00 02/08/18 06:43 Synthroid PO 150 mcg QDAC [facility] Administration Lisinopril 2.5 mg 02/06/18 09:00 02/07/18 08:12 Zestril PO 2.5 mg DAILY [facility] Administration Oxycodone HCl 5 mg 02/07/18 09:18 02/08/18 05:08 Roxicodone PO 5 mg Q6H PRN Administration PAIN Polyethylene Glycol 17 gm 02/06/18 09:00 02/07/18 08:13 Miralax PO 17 gm DAILY [facility] Administration Sodium Chloride 10 ml 02/06/18 05:20 02/07/18 03:30 Normal Saline Flush 0.9% IVP 10 ml PRN PRN Administration NEEDED PER PROVIDER ORDERS Sodium Chloride 10 ml 02/06/18 09:00 02/07/18 23:36 Normal Saline Flush 0.9% IVP Not Given 0100,0900,1700 [facility] - Lab Result Fish Bone Diagrams: 02/08/18 04:45 02/08/18 04:45 - Diagnostic Imaging Results Diagnostic Imaging Results: Read independently Diagnostic Imaging Results Comments: portable upright CXR this am: full expansion of left lung; no acute changes; resolving subcutaneous emphysema; no sig pleural effusion or infiltrate. following chest tube removal: no change. - Additional Planning Condition/Complexity: Improved My Orders: My Active Orders 02/07/18 09:18 oxyCODONE [Roxicodone] 5 mg PO Q6H PRN 02/07/18 10:00 Acetaminophen [Tylenol] 650 mg PO Q6H Ibuprofen [Motrin] 600 mg PO Q6HR 02/08/18 07:00 Chest 1 View X-Ray [XR] Routine 02/08/18 08:24 Chest 1 View X-Ray [XR] Stat Plan Discussed with:: Patient Time Spent: 15-30 minutes Subjective - Subjective Patient Reports: Feeling Better, Chest Pain (better controlled now but persists; able to cough and clear his secretions; no dyspnea, able to get out of bed and go to bathroom, no fever/chills.) Objective Vital Signs: Vital Signs - 24 hr 02/07/18 02/07/18 02/07/18 12:46 16:14 20:38 Temperature 36.5 C 36.6 C 36.5 C Heart Rate [ 84 76 81 Brachial] Respiratory 18 16 20 Rate Blood Pressure 131/72 H 146/74 H [Left Brachial artery] Blood Pressure 143/71 H [Right Brachial artery] O2 Saturation 95 98 97 02/08/18 02/08/18 01:00 04:23 Temperature 36.8 C 36.4 C L Heart Rate [ 72 86 Brachial] Respiratory 16 16 Rate Blood Pressure [Left Brachial artery] Blood Pressure 134/71 H 155/85 H [Right Brachial artery] O2 Saturation 98 97 Oxygen O2 Source Room air Oxygen Flow Rate 2 I&O (Last 24 Hrs): Intake and Output Totals x24h 02/06/18 02/07/18 02/08/18 23:59 23:59 23:59 Intake Total 1680 4731.45 1600 Output Total 914 1009 1424 Balance 766 3722.45 176 General: Alert, Oriented x3, Mild distress Neck: No JVD Respiratory: No respiratory distress, Breath sounds nml, Other (chest tube appears nonfunctional with loss of fluctuation in water seal chamber with respiration.; breath sounds are equal; minimal serosanguinous drainage in chamber.) Abdomen: Soft, No tenderness Extremities: No edema, No tenderness/swelling - Results Results: Laboratory Results WBC 10.8 x10^3/uL (4.8-10.8) 02/08/18 04:45 RBC 4.00 10^6/uL (4.70-6.10) L 02/08/18 04:45 Hgb 13.3 g/dL (14.0-18.0) L 02/08/18 04:45 Hct 40.1 % (42.0-52.0) L 02/08/18 04:45 MCV 100.3 fL (80.0-94.0) H 02/08/18 04:45 MCH 33.3 pg (27.0-31.0) H 02/08/18 04:45 MCHC 33.3 g/dL (32.0-36.0) 02/08/18 04:45 RDW 14.5 % (12.0-15.0) 02/08/18 04:45 Plt Count 312 10^3/uL (130-450) 02/08/18 04:45 MPV 6.6 fL (7.4-11.4) L 02/08/18 04:45 Neut # (Auto) 8.3 10^3/uL (1.5-6.6) H 02/08/18 04:45 Lymph # (Auto) 1.4 10^3/uL (1.5-3.5) L 02/08/18 04:45 [place] # (Auto) 0.7 10^3/uL (0.0-1.0) 02/08/18 04:45 Eos # (Auto) 0.3 10^3/uL (0.0-0.7) 02/08/18 04:45 Baso # (Auto) 0.0 10^3/uL (0.0-0.1) 02/08/18 04:45 Absolute Nucleated RBC 0.01 x10^3/uL 02/08/18 04:45 Nucleated RBC % 0.1 /100WBC 02/08/18 04:45 PT 10.2 secs (9.9-12.6) 02/06/18 08:55 INR 0.9 (0.8-1.2) 02/06/18 08:55 APTT 27.1 secs (24.9-33.3) 02/06/18 08:55 Sodium 131 mmol/L (135-145) L 02/08/18 04:45 Potassium 5.0 mmol/L (3.5-5.0) 02/08/18 04:45 Chloride 102 mmol/L (101-111) 02/08/18 04:45 Carbon Dioxide 24 mmol/L (21-32) 02/08/18 04:45 Anion Gap 5.0 (6-13) L 02/08/18 04:45 BUN 15 mg/dL (6-20) 02/08/18 04:45 Creatinine 0.9 mg/dL (0.6-1.2) 02/08/18 04:45 Estimated GFR (MDRD) 85 (>89) L 02/08/18 04:45 Glucose 300 mg/dL (70-100) H 02/08/18 04:45 POC Whole Bld Glucose 323 mg/dL (70 - 100) H 02/08/18 07:33 Glycated Hemoglobin 6.5 % (4.6-6.2) H 02/06/18 09:06 Estim Average Glucose 140 (70-100) H 02/06/18 09:06 Lactic Acid 1.1 mmol/L (0.5-2.2) 02/07/18 05:31 Calcium 7.9 mg/dL (8.5-10.3) L 02/08/18 04:45 Phosphorus 2.1 mg/dL (2.5-4.6) L 02/07/18 05:31 Magnesium 1.9 mg/dL (1.7-2.8) 02/07/18 05:31 Total Bilirubin 0.8 mg/dL (0.2-1.0) 02/08/18 04:45 GGT 43 IU/L (8-55) 02/06/18 08:55 AST 31 IU/L (10-42) 02/08/18 04:45 ALT 27 IU/L (10-60) 02/08/18 04:45 Alkaline Phosphatase 57 IU/L (42-121) 02/08/18 04:45 Troponin I < 0.04 ng/mL (<0.49) 02/07/18 08:29 Total Protein 5.6 g/dL (6.7-8.2) L 02/08/18 04:45 Albumin 3.1 g/dL (3.2-5.5) L 02/08/18 04:45 Globulin 2.5 g/dL (2.1-4.2) 02/08/18 04:45 Albumin/Globulin Ratio 1.2 (1.0-2.2) 02/08/18 04:45 Lipase 19 U/L (22-51) L 02/06/18 03:50 TSH 1.22 uIU/mL (0.34-5.60) 02/06/18 08:55 Urine Opiates Screen POSITIVE (NEGATIVE) H 02/06/18 13:00 Ur Oxycodone Screen NEGATIVE (NEGATIVE) 02/06/18 13:00 Urine Methadone Screen NEGATIVE (NEGATIVE) 02/06/18 13:00 Ur Propoxyphene Screen NEGATIVE (NEGATIVE) 02/06/18 13:00 Ur Barbiturates Screen NEGATIVE (NEGATIVE) 02/06/18 13:00 Ur Tricyclics Screen NEGATIVE (NEGATIVE) 02/06/18 13:00 Ur Phencyclidine Scrn NEGATIVE (NEGATIVE) 02/06/18 13:00 Ur Amphetamine Screen NEGATIVE (NEGATIVE) 02/06/18 13:00 U Methamphetamines Scrn NEGATIVE (NEGATIVE) 02/06/18 13:00 U Benzodiazepines Scrn NEGATIVE (NEGATIVE) 02/06/18 13:00 Urine Cocaine Screen NEGATIVE (NEGATIVE) 02/06/18 13:00 U Cannabinoids Screen POSITIVE (NEGATIVE) H 02/06/18 13:00 Ethyl Alcohol 98.2 mg/dL 02/06/18 03:50 - Procedures Procedures: Procedures COLONOSCOPY (12/11/13) 02/08/2018: Chest tube removed at bedside in usual fashion. f/u CXR: full expansion of left lung. Sepsis Event Note (H) - Evaluation Current Stage of Sepsis: Ruled out ABX Reporting Has patient been on IV antibiotics over the past 48 hours?: No
[2018-02-08] MEDS ORDERED: INSULIN GLARGINE 300 UNIT/3 ML PEN SUBQ SCH ×2 (09:00)
[2018-02-08] MEDS ORDERED: INSULIN GLARGINE 300 UNIT/3 ML PEN SUBQ ONE (09:00)
[2018-02-08] MEDS: POLYETHYLENE GLYCOL 3350 17 GM PACKET PO SCH (09:13)
[2018-02-08] MEDS: DULoxetine 30 MG CAPSULE PO SCH (09:13)
[2018-02-08] MEDS: LISINOPRIL 5 MG TABLET PO SCH (09:13)
[2018-02-08] MEDS: SODIUM CHLORIDE FLUSH 0.9% 10 ML SYRINGE IVP SCH (09:15)
--- NOTE | 2018-02-08 09:59 | XRAY Report ---
Reason: f/u ptx Procedure Date: 02/08/2018 Accession Number: [id number] / [id number] Procedure: XR - Chest 1 View X-Ray CPT Code: 07874 FULL RESULT: EXAM: CHEST RADIOGRAPHY EXAM DATE: 02/08/2018 09:19 AM. CLINICAL HISTORY: Followup pneumothorax. COMPARISON: CHEST 1 VIEW 02/07/2018 8:15 AM. TECHNIQUE: 1 view. FINDINGS: Lungs/Pleura: Actual intrathoracic pneumothorax is difficult to assess due to overlying subcutaneous emphysema markings obscuring fine detail in the lung. With this limitation, near the site of lateral upper thoracic rib fractures approximately 2 mm of medial displacement of the pleura are detected. There is no evidence of tension pneumothorax emanating from the left or left-sided lobar collapse. No large left-sided pleural effusion. Mild airspace opacity at the left lung base is noted. Mediastinum: There is a small amount of pneumomediastinum. The cardiomediastinal silhouette is otherwise acceptable in terms of size and position. Other: Subcutaneous emphysema has decreased in the neck region but large amounts remain invested surrounding the left hemithorax. A number of displaced left rib fractures in a configuration suggestive of flail chest attest to the mechanism. Small caliber chest drain is in place, exact positioning cannot be assessed on one view. IMPRESSION: Displaced left-sided rib fractures and configuration suggestive of flail chest. Small amount of pneumomediastinum in the setting of large subcutaneous emphysema. No evidence of tension pneumothorax or lobar lung collapse. In terms of sizing the inferred left pneumothorax, no significant lobar collapse or mass effect on the well-inflated left lung parenchyma is seen. [facility]
--- NOTE | 2018-02-08 10:11 | XRAY Report ---
Reason: s/p chest tube removal Procedure Date: 02/08/2018 Accession Number: [id number] / [id number] Procedure: XR - Chest 1 View X-Ray CPT Code: 37701 FULL RESULT: EXAM: CHEST RADIOGRAPHY EXAM DATE: 02/08/2018 08:11 AM. CLINICAL HISTORY: S/p chest tube removal. COMPARISON: CHEST 1 VIEW 02/08/2018 7:59 AM. TECHNIQUE: 1 view. FINDINGS: Lungs/Pleura: Stable aeration of lungs with linear densities at the left lung base felt to represent atelectasis, likely due to splinting. No sizable pleural effusion. There is likely a 1.8 cm thick small apical pneumothorax. Mediastinum: Within exam limitations, the cardiomediastinal contour is normal. Other: Interval chest drain removal. Unchanged configuration of rib fractures. Stable to decreased minimal pneumomediastinum. Soft tissue subcutaneous emphysema. IMPRESSION: Interval chest drain removal. Visualization of a small 1.8 cm thick left apical pneumothorax. No mediastinal shift or meaningful mass-effect to suggest tension. [facility]
[2018-02-08 12:50] VITALS: BP 145/77
--- NOTE | 2018-02-08 12:50 | Discharge Plan ---
Discharge Plan Disposition: Home, Self Care Condition: Poor Prescriptions: oxyCODONE [Roxicodone] 5 mg PO Q6H PRN #15 tablet PRN Reason: Pain Diet: Diabetic Activity Restrictions: Activity as Tolerated Shower Restrictions: No (fall precaution) Instruction Topics: Oxycodone tablets or capsules, Pneumothorax, Fx Rib Additional Instructions or Follow Up instructions: you may followup your PCP in one week, followup your director of provider relations as out-pt, followup Dr. Khadar Bello in next week. You were admitted for pneumothorax and had chest tube. After you were clinic significantly improved and with CXR verification, your chest tube was removed by our surgeon, and you are discharged by our surgeon as well. Should your symptoms return or worsen, you may present ER or call 911 for help. No Smoking: If you smoke, Please STOP! Call for help.
--- NOTE | 2018-02-08 13:07 | DISCHARGE SUMMARY ---
"Discharge Summary Discharge Date: 02/08/18 Discharging Provider: TRACEY Condition at Discharge: Poor Discharge Disposition: 01 Home, Self Care Discharge Facility Name: home - DIAGNOSES Admission Diagnoses: (1) Traumatic pneumothorax (2) Multiple rib fractures (3) Type 1 diabetes mellitus on insulin therapy (4) Hypothyroidism (5) Depression (6) Polyneuropathy Discharge Diagnoses with Status of Each Condition: (1) Traumatic pneumothorax new CXR reveals stable and extended lung. chest tube removed by surgeon. pt rep ort her pain is controlled. pt did not present any respiratory distress after chest tube removed. followup surgeon in one week (2) Multiple rib fractures Multiple fractures of ribs, left side, initial encounter for closed fracture ,pain is controlled, followup surgeon in one week (3) Type 1 diabetes mellitus on insulin therapy pt has insulin pump at home, he state he will use, followup thermal technician as his schedule (4) Hypothyroidism Stable (5) Depression Stable, cont home cymbalta (6) Polyneuropathy stable, and continue gabapentin (7) alcohol abuse without withdrawal symptoms at hospital. consult with pt for quit - HPI History of Present Illness: refer from Dr. Kearney's HPI on 02/06/18 as the following: Mr Lassiter is a 62 yo male with PMH of type 1 DM on insulin pump, hypothyroid, and depression who was walking out of his porchi last evening approximately 8 pm when he tripped over his slppers and landed on concrete steps hitting his left side. He denied any syncope or near syncope and denies hitting his head. He had pain in the L chest wall and ribs, but tried to manage it at home with tylenol through the night but when the pain became worse he presented to the ED earlier this morning for evaluation. In the ED, he had a chest xray which showed a L sided pneumothorax and pneumomediastinum along with fractures of the L ribs 4-6. Dr Mosley put in a thoraseal in the ED which was followed by a repeat cxr showing rexpansion of the pneumothorax. Based on the significance of the pneumothorax pt will be placed in observation for pain control. Also, Dr Bello has been notified and will follow pt in the morning. - CONSULTS | PROCEDURES Consultations: Dr. Khadar Bello Procedures: chest tube insert - HOSPITAL COURSE Hospital Course: pt was admitted for chest pain after he had fall at home. pt was found to have left pneumothorax and rib fracture from his traumatic fall. his troponin test is negative. Surgeon was consulted. pt had chest tube, pain controlled. After treatment, and CXR monitor, pt's lung was extended. Chest tube was removed by surgeon and pt is hemodynamic stable. pt had insulin pump at home, he state he will continue to use, and followup his thermal technician as his schedule as well. pt was d/c by our surgeon as well. - ALLERGIES Allergies/Adverse Reactions: Allergies Allergy/AdvReac Type Severity Reaction Status Date / Time No Known Drug Allergies Allergy Verified 02/06/18 02:39 - MEDICATIONS Home Medications: Ambulatory Orders Medication Instructions Recorded Confirmed Glucagon [Glucagen] 1 mg SUBQ ONCE PRN 12/10/13 02/06/18 Levothyroxine [Synthroid] 150 mcg PO DAILY 12/10/13 02/06/18 Lisinopril 2.5 mg PO DAILY 12/10/13 02/06/18 Aspirin [Adult Low Dose Aspirin EC] 81 mg PO DAILY 07/03/15 02/06/18 Duloxetine HCl [Cymbalta] 60 mg PO DAILY 07/03/15 02/06/18 Gabapentin 600 mg PO BID 07/03/15 02/06/18 Insulin Aspart [Novolog Flexpen] 3 - 7 unit SQ ACHS 07/03/15 02/06/18 oxyCODONE [Roxicodone] 5 mg PO Q6H PRN #15 tablet 02/08/18 - PHYSICAL EXAM AT DISCHARGE General Appearance: positive: No acute distress, Alert. negative: Lethargic Eyes Bilateral: positive: Normal inspection, PERRL, No lid inflammation, Conjunctivae nml ENT: positive: ENT inspection nml, Pharynx nml, No signs of dehydration. negative: Purulent nasal drainage, Pharyngeal erythema, Oral lesions Neck: positive: Nml inspection, Thyroid nml, No JVD, Trachea midline. negative: Thyromegaly, Lymphadenopathy (R), Lymphadenopathy (L), Stiff neck, Swelling/bruising, Tracheal deviation Respiratory: positive: Chest non-tender, No respiratory distress, Breath sounds nml. negative: Wheezes, Rales, Rhonchi Cardiovascular: positive: Regular rate & rhythm, No murmur, No gallop, Irregularly irregular. negative: Extrasystoles, Tachycardia, Bradycardia, JVD present, Systolic murmur, Diastolic murmur Peripheral Pulses: positive: 2+ Abdomen: positive: Non-tender, No organomegaly, Nml bowel sounds, No distention. negative: Tenderness, Guarding, Rebound Back: positive: Nml inspection. negative: CVA tenderness (R), CVA tenderness (L) Skin: positive: Color nml, No rash, Warm, Dry. negative: Cyanosis, Diaphoresis, Pallor Extremities: positive: Non-tender, Full ROM, Nml appearance. negative: Calf tenderness, Joint swelling, Harjit's sign/cords Neurologic/Psychiatric: positive: Oriented x3, Motor nml, Sensation nml, Mood/affect nml. negative: Weakness, Sensory loss, Facial droop, Slurred/abnml speech, Depressed mood/affect - LABS Result Diagrams: 02/08/18 04:45 02/08/18 04:45 - SEPSIS Current Stage of Sepsis: Ruled out - FOLLOW UP Follow Up: you may followup your PCP in one week, followup your thermal technician as out-pt, followup Dr. Khadar Bello in next week. You were admitted for pneumothorax and had chest tube. After you were clinic significantly improved and with CXR verification, your chest tube was removed by our surgeon, and you are discharged by our surgeon as well. Should your symptoms return or worsen, you may present ER or call 911 for help. - TIME SPENT Time Spent in Discharge (Minutes): 50"
[2018-02-09] MEDS ORDERED: INSULIN GLARGINE 300 UNIT/3 ML PEN SUBQ SCH (09:00)
== END 2018-02-08 13:41 | disposition home or self-care (01) | DRG 200 ==
LOC: ED 02:32 → MS2 05:20 → OBSVTOIN 10:13
PROVIDERS: ADMIT Family Medicine Sports Medicine; ATTEND Nurse Practitioner
DX: S27.0XXA Traumatic pneumothorax, initial encounter (principal); S22.42XA Multiple fractures of ribs, left side, initial encounter for closed fracture; T79.7XXA Traumatic subcutaneous emphysema, initial encounter; F10.10 Alcohol abuse, uncomplicated; W01.198A Fall on same level from slipping, tripping and stumbling with subsequent striking against other object, initial encounter; E10.42 Type 1 diabetes mellitus with diabetic polyneuropathy; Z96.41 Presence of insulin pump (external) (internal); E03.9 Hypothyroidism, unspecified; F32.9 Major depressive disorder, single episode, unspecified; F41.9 Anxiety disorder, unspecified; E78.00 Pure hypercholesterolemia, unspecified; F17.210 Nicotine dependence, cigarettes, uncomplicated; Y92.008 Other place in unspecified non-institutional (private) residence as the place of occurrence of the external cause; Z72.89 Other problems related to lifestyle; Z79.82 Long term (current) use of aspirin; Z87.01 Personal history of pneumonia (recurrent)
CPT/HCPCS: 32551; 36415; 71045; 80053; 80306; 80320; 82977; 83036; 83605; 83690; 83735; 84100; 84443; 84484; 85025; 85610; 85730; 96374; 99284; 99285

== ENCOUNTER 2019-08-07 09:34 | Emergency (ER) | payer MEDICARE, OTHER ==
[2019-08-07] MEDS ORDERED: BUFFERED LIDOCAINE 10 ML SYRINGE SUBQ STA (10:06)
[2019-08-07] MEDS ORDERED: BUPIVACAINE 0.5% PF 10 ML VIAL SUBQ STA (10:06)
[2019-08-07] MEDS ORDERED: SODIUM CHLORIDE 0.9% 1,000 ML IV STA (10:36)
--- NOTE | 2019-08-07 10:39 | ED Physician Documentation ---
History of Present Illness - Stated complaint Stated Complaint: R THUMB SWELLING - Chief complaint Chief Complaint: Ext Problem - History obtained from History obtained from: Patient - History of Present Illness Timing: How many days ago (3-4) - Additonal information Additional information: 64-year-old type I diabetic male comes into the emergency department today with complaint of swelling and pain to his right thumb. He states the pain is now coming all the way up into his wrist and the thumb is swollen at the tip. Very tender. He does not know why this happened. He is working on a home remodeling it. He indicates that his blood sugars have been running low last night and that he is having a lot of cramping painful cramping in his legs and back and he has an appointment to go see his doctor about this. Review of Systems Constitutional: reports: Fatigue. denies: Fever Ears: denies: Ear pain Nose: denies: Congestion Throat: denies: Sore throat Cardiac: denies: Chest pain / pressure, Palpitations Respiratory: denies: Dyspnea, Cough GI: denies: Abdominal Pain, Nausea, Vomiting : denies: Dysuria, Frequency Skin: denies: Rash Musculoskeletal: reports: Extremity pain, Extremity swelling. denies: Neck pain, Back pain Neurologic: denies: Generalized weakness, Focal weakness, Numbness PD PAST MEDICAL HISTORY - Past Medical History Past Medical History: Yes Cardiovascular: High cholesterol Respiratory: Pneumonia, Other Neuro: Peripheral neuropathy Endocrine/Autoimmune: Type 2 diabetes, HyPOthyroidism GI: GERD : None HEENT: None Psych: Depression, Anxiety Musculoskeletal: None Derm: None - Past Surgical History Past Surgical History: Yes - Present Medications Home Medications: Ambulatory Orders Medication Instructions Recorded Confirmed Glucagon [Glucagen] 1 mg SUBQ ONCE PRN 12/10/13 02/06/18 Levothyroxine [Synthroid] 150 mcg PO DAILY 12/10/13 02/06/18 lisinopriL [Lisinopril] 2.5 mg PO DAILY 12/10/13 02/06/18 Aspirin [Adult Low Dose Aspirin EC] 81 mg PO DAILY 07/03/15 02/06/18 Duloxetine HCl [Cymbalta] 60 mg PO DAILY 07/03/15 02/06/18 Gabapentin 600 mg PO BID 07/03/15 02/06/18 Insulin Aspart [Novolog Flexpen] 3 - 7 unit SQ ACHS 07/03/15 02/06/18 oxyCODONE [Roxicodone] 5 mg PO Q6H PRN #15 tablet 02/08/18 Oxycodone HCl/Acetaminophen 1 - 2 each PO Q6H PRN #14 tablet 08/07/19 [Percocet 5-325 mg Tablet] Sulfamethoxazole/Trimethoprim 1 each PO BID #14 tablet 08/07/19 [Sulfamethoxazole-Tmp Ds Tablet] - Allergies Allergies/Adverse Reactions: Allergies Allergy/AdvReac Type Severity Reaction Status Date / Time No Known Drug Allergies Allergy Verified 08/07/19 09:47 - Social History Does the pt smoke?: Yes Smoking Status: Current every day smoker Does the pt drink ETOH?: Yes Does the pt have substance abuse?: No - Immunizations Immunizations are current?: Yes - POLST Patient has POLST: No POLST Status: Full Code PD ED PE NORMAL - Vitals Vital signs reviewed: Yes (Hypertensive) - General General: Alert and oriented X 3, No acute distress, Well developed/nourished - HEENT HEENT: Atraumatic, PERRL, EOMI - Respiratory Respiratory: No respiratory distress - Abdomen Abdomen: Soft, Non tender - Derm Derm: Normal color, Warm and dry, No rash - Extremities Extremities: No deformity, Other (The right thumb is swollen the skin is pale it is fluctuant and tender. There is no lymphangitic streaking or proximal extension of erythema. This looks like a felon.) - Neuro Neuro: Alert and oriented X 3, ancillary specialist 2-12 intact, No motor deficit, No sensory deficit, Normal speech Eye Opening: Spontaneous Motor: Obeys Commands Verbal: Oriented GCS Score: 15 - Psych Psych: Normal mood, Normal affect Results - Vitals Vitals: Vital Signs - 24 hr 08/07/19 09:47 Temperature 36.6 C Heart Rate 79 Respiratory 18 Rate Blood Pressure 157/92 H O2 Saturation 100 Oxygen O2 Source Room air - Labs Labs: Laboratory Tests 08/07/19 08/07/19 10:53 10:53 WBC 9.1 RBC 3.82 L Hgb 12.3 L Hct 35.4 L MCV 92.7 MCH 32.2 H MCHC 34.7 RDW 16.0 H Plt Count 284 MPV 7.8 Neut # (Auto) 6.0 Lymph # (Auto) 2.0 [place] # (Auto) 0.7 Eos # (Auto) 0.4 Baso # (Auto) 0.1 Absolute Nucleated RBC 0.00 Nucleated RBC % 0.0 Sodium 127 L Potassium 4.4 Chloride 89 L Carbon Dioxide 29 Anion Gap 9.0 BUN 16 Creatinine 1.4 H Estimated GFR (MDRD) 51 L Glucose 121 H Calcium 9.1 Total Bilirubin 0.4 AST 167 H ALT 126 H Alkaline Phosphatase 41 L Total Protein 6.9 Albumin 4.2 Globulin 2.7 Albumin/Globulin Ratio 1.6 Lipase 27 Procedures - Abscess I&D (location) right thumb\ Preparation: Confirmed with ultrasound, Betadine, Other (digital block with 50/50 lidocaine/bupivicaine) Incision: Incised with scalpel, Irrigated, Culture obtained, Other (minimal drainage) Other: Pt tolerated well, Dressing applied, Antibiotic prescribed - Bedside sono Bedside sono by EMP: With use bedside ultrasound the right thumb is imaged and there is free fluid just beneath the skin. This is consistent with the clinical diagnosis of felon. - IVC sono (time) 1030 Bedside IVC sono: IVC measures (cm) (0.79), IVC collapsed c insp (cm) (complete), Dehydration (est 2 liter deficit) PD MEDICAL DECISION MAKING - ED course Complexity details: reviewed old records, reviewed results, re-evaluated patient, considered differential, d/w patient ED course: 64-year-old type I diabetic male with a felon in the right thumb has also been having some issues with excessive cramping consistent with dehydration. Inferior vena cava is interrogated the patient is found to be dehydrated on the order of 2 L of fluid. In discussion with the patient he would like to have some fluids given. He does not give a history of polyuria polydipsia. He has been dehydrated apparently for some time as he has had significant cramping for some time. I have offered the patient intravenous hydration and he is grateful for any help. Digital blocks performed on the right thumb was incised minimal fluid is drained and we will place patient on . Departure - Departure Disposition: 01 Home, Self Care Clinical Impression: Dehydration, Felon of digit, Hyponatremia Condition: Stable Instructions: ED Dehydration, ED Abscess IandD, ED Hyponatremia Follow-Up: Severiano Madera MD [Primary Care Provider] - Prescriptions: Oxycodone HCl/Acetaminophen [Percocet 5-325 mg Tablet] 1 - 2 each PO Q6H PRN #14 tablet PRN Reason: pain Sulfamethoxazole/Trimethoprim [Sulfamethoxazole-Tmp Ds Tablet] 1 each PO BID #14 tablet
[2019-08-07 10:59] LABS: BASOPHILS # (AUTO) 0.1 10^3/uL (0.0-0.1); BASOPHILS % (AUTO) 0.8 %; EOSINOPHILS # (AUTO) 0.4 10^3/uL (0.0-0.7); EOSINOPHILS % (AUTO) 4.1 %; HGB - HEMOGLOBIN 12.3 g/dL (14.0-18.0); LYMPHOCYTES % (AUTO) 21.8 %; MEAN CORPUSCULAR HEMOGLOBIN 32.2 pg (27.0-31.0); MEAN CORPUSCULAR HGB CONC 34.7 g/dL (32.0-36.0); MEAN CORPUSCULAR VOLUME 92.7 fL (80.0-94.0); MEAN PLATELET VOLUME 7.8 fL (7.4-11.4); MONOCYTES # (AUTO) 0.7 10^3/uL (0.0-1.0); MONOCYTES % (AUTO) 7.3 %; NEUTROPHILS % (AUTO) 65.6 %; PLT - PLATELET COUNT 284 10^3/uL (130-450); RED BLOOD COUNT 3.82 10^6/uL (4.70-6.10); WHITE BLOOD COUNT 9.1 x10^3/uL (4.8-10.8)
[2019-08-07 11:16] LABS: ALBUMIN 4.2 g/dL (3.2-5.5); ALBUMIN/GLOBULIN RATIO 1.6 (1.0-2.2); BILIRUBIN,TOTAL 0.4 mg/dL (0.2-1.0); CALCIUM 9.1 mg/dL (8.5-10.3); CREATININE 1.4 mg/dL (0.6-1.2); TOTAL PROTEIN 6.9 g/dL (6.7-8.2)
[2019-08-07 13:16] VITALS: BP 142/92
== END 2019-08-07 13:16 | disposition home or self-care (01) ==
LOC: ED 09:34
DX: L03.011 Cellulitis of right finger (principal); E86.0 Dehydration; E87.1 Hypo-osmolality and hyponatremia; E10.42 Type 1 diabetes mellitus with diabetic polyneuropathy; R03.0 Elevated blood-pressure reading, without diagnosis of hypertension; F17.200 Nicotine dependence, unspecified, uncomplicated; Z79.82 Long term (current) use of aspirin
CPT/HCPCS: 26010; 26011; 36415; 80053; 83690; 85025

== ENCOUNTER 2019-08-15 03:44 | Inpatient (IN) | payer MEDICARE, OTHER ==
--- NOTE | 2019-08-15 04:07 | ED Physician Documentation ---
History of Present Illness - Stated complaint Stated Complaint: SWOLLEN THUMB - History obtained from History obtained from: Patient (The patient is an insulin-dependent 64-year-old male who is right-hand dominant presents with right thumb pain and swelling up to the forearm now approximately a week ago he had been diagnosed with a felon of the right thumb underwent incision and drainage and was placed on Bactrim.), Other (The patient reports worsening swelling of his right thumb and to his right forearm denies any history of MRSA or osteomyelitis. Denies any initial injury or foreign body or puncture wound.) Review of Systems Constitutional: reports: Reviewed and negative Eyes: reports: Reviewed and negative Ears: reports: Reviewed and negative Nose: reports: Reviewed and negative Throat: reports: Reviewed and negative Cardiac: reports: Reviewed and negative Respiratory: reports: Reviewed and negative GI: reports: Reviewed and negative : reports: Reviewed and negative Skin: reports: Reviewed and negative Musculoskeletal: reports: Other (Right thumb swelling and swelling to the right forearm.) Neurologic: reports: Reviewed and negative Psychiatric: reports: Reviewed and negative Endocrine: reports: Reviewed and negative Immunocompromised: reports: Reviewed and negative PD PAST MEDICAL HISTORY - Past Medical History Cardiovascular: High cholesterol Respiratory: Pneumonia, Other Neuro: Peripheral neuropathy Endocrine/Autoimmune: Type 2 diabetes, HyPOthyroidism GI: GERD : None HEENT: None Psych: Depression, Anxiety Musculoskeletal: None Derm: None - Past Surgical History Past Surgical History: Yes - Present Medications Home Medications: Ambulatory Orders Medication Instructions Recorded Confirmed Glucagon [Glucagen] 1 mg SUBQ ONCE PRN 12/10/13 02/06/18 Levothyroxine [Synthroid] 150 mcg PO DAILY 12/10/13 02/06/18 lisinopriL [Lisinopril] 2.5 mg PO DAILY 12/10/13 02/06/18 Aspirin [Adult Low Dose Aspirin EC] 81 mg PO DAILY 07/03/15 02/06/18 Duloxetine HCl [Cymbalta] 60 mg PO DAILY 07/03/15 02/06/18 Gabapentin 600 mg PO BID 07/03/15 02/06/18 Insulin Aspart [Novolog Flexpen] 3 - 7 unit SQ ACHS 07/03/15 02/06/18 Oxycodone HCl/Acetaminophen 1 - 2 each PO Q6H PRN #14 tablet 08/07/19 [Percocet 5-325 mg Tablet] Sulfamethoxazole/Trimethoprim 1 each PO BID #14 tablet 08/07/19 [Sulfamethoxazole-Tmp Ds Tablet] - Allergies Allergies/Adverse Reactions: Allergies Allergy/AdvReac Type Severity Reaction Status Date / Time No Known Drug Allergies Allergy Verified 08/07/19 09:47 - Social History Does the pt smoke?: Yes Smoking Status: Current every day smoker Does the pt drink ETOH?: Yes Does the pt have substance abuse?: No - Immunizations Immunizations are current?: Yes - POLST Patient has POLST: No POLST Status: Full Code PD ED PE NORMAL - Vitals Vital signs reviewed: Yes - General General: Alert and oriented X 3, No acute distress, Well developed/nourished - HEENT HEENT: PERRL - Neck Neck: Supple, no meningeal sign - Cardiac Cardiac: RRR, No murmur - Respiratory Respiratory: Clear bilaterally - Abdomen Abdomen: Normal bowel sounds, Soft, Non tender, Non distended - Derm Derm: Other (Significant swelling to the right thumb into the right forearm the palmar aspect of the pad of the right thumb is tender to palpation. Appears to be noted increased pressure in the right thumb.Radian, median, ulnar motor and sensory exam are intact.) - Extremities Extremities: Other (Significant swelling of the right thumb that is severely tender to palpation on the palmar aspect and there is diffuse swelling and tenderness there is also noted edema and swelling to the right forearm there is no crepitus radian, median, ulnar motor and sensory exam are intact.) - Neuro Neuro: Alert and oriented X 3 - Psych Psych: Normal mood, Normal affect Results - Vitals Vitals: Vital Signs - 24 hr 08/15/19 04:01 Temperature 36.4 C L Heart Rate 71 Respiratory 18 Rate Blood Pressure 114/68 O2 Saturation 97 Oxygen O2 Source Room air - EKG (time done) 06:09 Rate: Other (no stemi) - Labs Labs: Laboratory Tests 08/15/19 08/15/19 08/15/19 04:25 04:25 04:25 WBC 10.4 RBC 3.22 L Hgb 10.8 L Hct 30.1 L MCV 93.5 MCH 33.5 H MCHC 35.9 RDW 16.4 H Plt Count 304 MPV 8.0 Neut # (Auto) 7.9 H Lymph # (Auto) 1.4 L [place] # (Auto) 0.7 Eos # (Auto) 0.3 Baso # (Auto) 0.1 Absolute Nucleated RBC 0.00 Nucleated RBC % 0.0 PT INR APTT Sodium 123 L Potassium 4.0 Chloride 90 L Carbon Dioxide 24 Anion Gap 9.0 BUN 25 H Creatinine 1.6 H Estimated GFR (MDRD) 43 L Glucose 57 L* Glycated Hemoglobin Estim Average Glucose Lactic Acid 1.1 Calcium 9.0 Total Bilirubin 0.3 AST 148 H ALT 86 H Alkaline Phosphatase 53 Total Protein 6.5 L Albumin 4.3 Globulin 2.2 Albumin/Globulin Ratio 2.0 Lipase 18 L Ethyl Alcohol 41.7 08/15/19 08/15/19 04:25 04:25 WBC RBC Hgb Hct MCV MCH MCHC RDW Plt Count MPV Neut # (Auto) Lymph # (Auto) [place] # (Auto) Eos # (Auto) Baso # (Auto) Absolute Nucleated RBC Nucleated RBC % PT 10.7 INR 0.9 APTT 33.1 Sodium Potassium Chloride Carbon Dioxide Anion Gap BUN Creatinine Estimated GFR (MDRD) Glucose Glycated Hemoglobin TNP Estim Average Glucose TNP Lactic Acid Calcium Total Bilirubin AST ALT Alkaline Phosphatase Total Protein Albumin Globulin Albumin/Globulin Ratio Lipase Ethyl Alcohol PD MEDICAL DECISION MAKING - ED course Complexity details: reviewed old records, reviewed results, re-evaluated patient, considered differential (Felon, cellulitis, osteomyelitis. ), d/w patient, d/w health care consultant (Case was discussed with orthopedic surgery who agreed to evaluate this patient in consultation.Case discussed with hospitalist who agreed to admit this patient.) - Consults Consults: Consulted (name) (dr. mckeon, will admit to hospitalist service.), Discussed case with (dr. kan, orthopedic surgeon. will evaluate patient as consult. ) Departure - Departure Disposition: 64 [facility] DC/Xfer Clinical Impression: Felon, Hyponatremia, Acute kidney injury, Hypoglycemia, Insulin dependent diabetes mellitus Osteomyelitis Qualifiers: Osteomyelitis type: unspecified type Osteomyelitis location: other site Qualified Code(s): M86.9 - Osteomyelitis, unspecified Condition: Stable
[2019-08-15] MEDS ORDERED: VANCOMYCIN INJ 1 GM in SODIUM CHLORIDE 0.9% 500 ML IV STA (04:13)
[2019-08-15] MEDS ORDERED: SODIUM CHLORIDE 0.9% 1,000 ML IV STA (04:13)
[2019-08-15] MEDS ORDERED: ONDANSETRON 4 MG/2 ML VIAL IVP STA (04:16)
[2019-08-15] MEDS ORDERED: MORPHINE 2 MG/ML CARPUJECT IVP STA (04:16)
[2019-08-15 04:30] LABS: BASOPHILS # (AUTO) 0.1 10^3/uL (0.0-0.1); BASOPHILS % (AUTO) 0.5 %; EOSINOPHILS # (AUTO) 0.3 10^3/uL (0.0-0.7); EOSINOPHILS % (AUTO) 3.1 %; HGB - HEMOGLOBIN 10.8 g/dL (14.0-18.0); LYMPHOCYTES # (AUTO) 1.4 10^3/uL (1.5-3.5); LYMPHOCYTES % (AUTO) 13.3 %; MEAN CORPUSCULAR HEMOGLOBIN 33.5 pg (27.0-31.0); MEAN CORPUSCULAR HGB CONC 35.9 g/dL (32.0-36.0); MEAN CORPUSCULAR VOLUME 93.5 fL (80.0-94.0); MONOCYTES # (AUTO) 0.7 10^3/uL (0.0-1.0); MONOCYTES % (AUTO) 7.1 %; NEUTROPHILS # (AUTO) 7.9 10^3/uL (1.5-6.6); NEUTROPHILS % (AUTO) 75.3 %; PLT - PLATELET COUNT 304 10^3/uL (130-450); RED BLOOD COUNT 3.22 10^6/uL (4.70-6.10); RED CELL DISTRIBUTION WIDTH 16.4 % (12.0-15.0); WHITE BLOOD COUNT 10.4 x10^3/uL (4.8-10.8)
[2019-08-15 04:37] LABS: INR 0.9 (0.8-1.2); PT - PROTHROMBIN TIME 10.7 secs (9.9-12.6)
[2019-08-15 04:44] LABS: ALBUMIN 4.3 g/dL (3.2-5.5); BILIRUBIN,TOTAL 0.3 mg/dL (0.2-1.0); CREATININE 1.6 mg/dL (0.6-1.2); TOTAL PROTEIN 6.5 g/dL (6.7-8.2)
[2019-08-15 04:46] LABS: PARTIAL THROMBOPLASTIN TIME 33.1 secs (24.9-33.3)
[2019-08-15] MEDS ORDERED: DEXTROSE 25% ABBOJECT 2.5 GM/10 ML SYRINGE IVP STA (04:51)
[2019-08-15] MEDS ORDERED: cefTRIAXone 1 GM in SODIUM CHLORIDE 0.9% MINIBAG 100 ML IV STA (05:38)
[2019-08-15] MEDS ORDERED: SODIUM CHLORIDE FLUSH 0.9% 10 ML SYRINGE IVP PRN (05:43)
[2019-08-15] MEDS ORDERED: ONDANSETRON 4 MG/2 ML VIAL IVP PRN (05:43)
[2019-08-15] MEDS ORDERED: ACETAMINOPHEN 325 MG TABLET PO PRN (05:43)
[2019-08-15] MEDS ORDERED: oxyCODONE 5 MG TABLET PO PRN (05:43)
[2019-08-15] MEDS ORDERED: MORPHINE 2 MG/ML CARPUJECT IVP PRN (05:43)
[2019-08-15] MEDS ORDERED: SODIUM CHLORIDE 0.9% 1,000 ML IV SCH (06:00)
--- NOTE | 2019-08-15 06:03 | HISTORY & PHYSICAL EXAMINATION ---
Chief Complaint - Chief Complaint Chief Complaint: Right thumb pain History of Present Illness - Admitted From Admitted From:: Home - History Obtained From Records Reviewed: Yes History obtained from: Patient, ER Physician, EMR - History of Present Illness HPI Comment/Other: This is a 64-year-old male with a past medical history significant for type 1 diabetes, hypothyroidism, neuropathy who presents today complaining of worsening right thumb pain. He was seen in the emergency department on August 06 for similar symptoms. At that time he was diagnosed with a felon of the right thumb and underwent I&D in the emergency department and started on Bactrim. He told the emergency department that he did not fill the prescription until August 10 and has been taking the antibiotic 3 times a day as he continued to have swelling. He presents today due to worsening sharp pain that radiates to his wrist. He states his right thumb remains quite swollen. He does not report any worsening erythema. He denies any fevers, chills, nausea, vomiting at home. Denies any chest pain or dyspnea. He does report muscle cramping and pain over the past few weeks. He states he has been trying to stay hydrated at home. He reports no prior history of ulcers or infection. He reports his blood glucose have been well controlled at home with very few high readings. He says he does have 1-2 occasional hypoglycemic episodes which resolves with a snack. He states he is symptomatic at this times but he has learned to manage his blood glucose. He follows with an call out operator at [facility]. In the emergency department here, he is found to have a sodium of 123, creatinine of 1.6, blood glucose of 57. His AST and ALT were elevated 148 and 86. Imaging of the right thumb revealed erosive changes concerning for possible osteomyelitis. He did not have a white count or fever. Given these findings, medicine was consulted for admission. I did discuss goals of care and he would like to be a full code. History - Past Medical History Cardiovascular: reports: High cholesterol Respiratory: reports: Pneumonia, Other (Traumatic pneumothroax) Neuro: reports: Peripheral neuropathy Endocrine/Autoimmune: reports: Type 1 diabetes, HyPOthyroidism GI: reports: GERD : reports: None HEENT: reports: None Psych: reports: Depression, Anxiety Musculoskeletal: reports: None Derm: reports: None MRSA Hx?: No - Family & Social History Family History: Mother: Mental Illness, Father: CAD Family History Comment/Other: He reports his father from a stroke in his 60s. His mother was also diabetic. Living Situation: With spouse/s.o. Social History Notes: Patient lives at home with his . He has 2 adult kids in their late 30s. He reports smoking 4 to 5 cigarettes a day for the past 40 to 50 years. He reports no alcohol or drug use. Reports his last alcoholic beverage was in December. Denies any history of alcoholism. - Substance History Use: Uses substance without health or social issues: Tobacco (5 cigarettes/day), Alcohol (3 drinks/day), Cannabis (daily) - POLST Patient has POLST: No POLST Status: Full Code Meds/Allgy - Home Medications Home Medications: Ambulatory Orders Medication Instructions Recorded Confirmed Glucagon [Glucagen] 1 mg SUBQ ONCE PRN 12/10/13 02/06/18 Levothyroxine [Synthroid] 150 mcg PO DAILY 12/10/13 02/06/18 lisinopriL [Lisinopril] 2.5 mg PO DAILY 12/10/13 02/06/18 Aspirin [Adult Low Dose Aspirin EC] 81 mg PO DAILY 07/03/15 02/06/18 Duloxetine HCl [Cymbalta] 60 mg PO DAILY 07/03/15 02/06/18 Gabapentin 600 mg PO BID 07/03/15 02/06/18 Insulin Aspart [Novolog Flexpen] 3 - 7 unit SQ ACHS 07/03/15 02/06/18 Oxycodone HCl/Acetaminophen 1 - 2 each PO Q6H PRN #14 tablet 08/07/19 [Percocet 5-325 mg Tablet] Sulfamethoxazole/Trimethoprim 1 each PO BID #14 tablet 08/07/19 [Sulfamethoxazole-Tmp Ds Tablet] - Allergies Allergies/Adverse Reactions: Allergies Allergy/AdvReac Type Severity Reaction Status Date / Time No Known Drug Allergies Allergy Verified 08/07/19 09:47 Review of Systems - Constitutional Constitutional: denies: Fatigue, Fever, Chills, Malaise, Weakness, Poor appetite - Ears, Nose & Throat Ears, Nose & Throat: denies: Nasal discharge, Nasal congestion, Sore throat - Cardiovascular Cariovascular: denies: Chest pain, Exertional dyspnea, Decr. exercise tolerance - Respiratory Respiratory: denies: Cough, SOB at rest, SOB with exertion - Gastrointestinal Gastrointestinal: reports: Reflux/heartburn. denies: Abdominal pain, Constipation, Diarrhea, Nausea, Vomiting - Genitourinary Genitourinary: denies: Dysuria, Frequency, Urgency - Musculoskeletal Musculoskeletal: reports: Muscle aches, Limited range of motion, Joint pain, Joint swelling - Integumentary Integumentary: denies: Rash - Neurological Neurological: reports: Numbness. denies: General weakness, Focal weakness - Hematologic/Lymphatic Hematologic/Lymphatic: denies: Bleeding tendencies - All Other Systems All Other Systems: reports: Reviewed and negative Prior Level of Functionality: He is independent with his ADLs. Exam - Vital Signs Reviewed Vital Signs: Yes Vital Signs: Vital Signs x48h Temp Pulse Resp BP Pulse Ox 08/15/19 05:56 78 16 155/98 H 96 08/15/19 04:01 36.4 C L 71 18 114/68 97 - Physical Exam General Appearance: positive: No acute distress, Alert Eyes Bilateral: positive: Normal inspection ENT: positive: ENT inspection nml Neck: positive: Nml inspection Respiratory: positive: No respiratory distress. negative: Wheezes, Rales, Rhonchi Cardiovascular: positive: Regular rate & rhythm, No murmur. negative: Tachycardia, Bradycardia Abdomen: positive: Non-tender, No distention. negative: Tenderness, Guarding, Rebound Skin: positive: Warm, Dry Extremities: positive: No pedal edema, Other (The right thumb is edematous from distal phalanx to the palm. No significant erythema. The digit is tender to palpation. Incision noted from prior I&D. No purulent discharge.) Neurologic/Psychiatric: positive: Oriented x3, Motor nml. negative: Disoriented to person, Disoriented to place, Disoriented to time Conclusion/Plan - Problem List (1) Acute osteomyelitis of phalanx of digit of hand Conclusion/Plan: He presents with worsening pain andswelling over the right thumb. He failed outpatient management with Bactrim. X-ray is concerning for possible osteomyelitis. He has received vancomycin and ceftriaxone in the emergency department. At this time, we will start him on vancomycin and cefepime IV. Pain control wit Tylenol, Oxycodone PO as needed and Morphine IV as needed. Check CRP and ESR. Will discuss with orthopedics but he would likely benefit from further imaging such as MRI. We will keep him n.p.o. for time being for possible jacob gical intervention. Appreciate orthopedics input. Qualifiers: Laterality: right Qualified Code(s): M86.141 - Other acute osteomyelitis, right hand (2) Acute kidney injury Conclusion/Plan: Suspect this is secondary to the use of Bactrim other may be a component of prerenal injury as well. His creatinine is elevated at 1.5 baseline of 0.9-1. We will treat him with IV fluids and monitor his renal function and urine output. Hold his home lisinopril. His AST and ALT are also elevated and given he is complaining of muscle cramping, will check CKs to rule out rhabdomyolysis as this may also cause acute kidney injury. (3) Hypoglycemia Conclusion/Plan: He was hypoglycemic with a blood glucose of 57 upon arrival to the emergency department. He was given dextrose with improvement. At this time, he will be made n.p.o. for possible surgical intervention. If this will be delayed, we will start him on a carb controlled diet. We will check an A1c. We will continue him on the insulin pump while hospitalized. (4) Hyponatremia Conclusion/Plan: Appears to be hypovolemic hypo-natremia. His sodium is decreased at 123. His baseline pretty approxi-around 130. We will start him on normal saline and recheck his sodium this evening. (5) Abnormal LFTs Conclusion/Plan: His LFTs are elevated and he denies a history of alcohol use with his last drink being in December. His alcohol level is elevated at 42. We will check CKs given abdominal cramping to rule out underlying rhabdomyolysis as this may be a cause of the abnormal LFTs. If this is unremarkable, will consider obtaining an ultrasound of the liver for further evaluation. (6) Insulin dependent diabetes mellitus Conclusion/Plan: His last A1c was less than 7%. He currently presents with hyperglycemia and a blood glucose of 57. We will continue him on his insulin pump and monitor his blood glucose closely. We will start him on a carb controlled diet once we know that there would be no immediate surgical intervention. Check A1c. Consider special education paraeducator consult. (7) Hypothyroidism Conclusion/Plan: Stable. Continue Synthroid. We will check a TSH. Qualifiers: - Lab Results Lab results reviewed: Yes Fish Bones: 08/15/19 04:25 08/15/19 04:25 - Diagnostic Imaging Results Diagnostic Imaging Results: positive: Final report reviewed - EKG Results EKG Interpreted Independently: Yes EKG Findings: His EKG shows sinus rhythm with a left bundle branch block. There is no prior EKG to compare to. Core Measures - Anticipated LOS I expect patient to be DC'd or transferred within 96 hours.: Yes - Issues Hospital Issues and Management Plan: 64-year-old male who presents with worsening right thumb pain after being t reated with Bactrim on outpatient basis. X-ray findings concerning for osteomyelitis. Also has acute kidney injury. We admitted for IV antibiotics and orthopedic consult. - DVT/VTE - Prophylaxis VTE/DVT Device ordered at admit?: Yes VTE/DVT Prophylaxis med ordered at admit?: Yes
[2019-08-15] MEDS ORDERED: SODIUM CHLORIDE 0.9% 1,000 ML IV ONE (07:06)
[2019-08-15] MEDS: SODIUM CHLORIDE 0.9% 1,000 ML IV SCH ×3 (08:18→23:14)
[2019-08-15] MEDS: SODIUM CHLORIDE FLUSH 0.9% 10 ML SYRINGE IVP SCH ×2 (08:19→19:53)
[2019-08-15] MEDS: MULTIVITAMIN TABLET PO SCH (08:19)
[2019-08-15] MEDS: CEFEPIME 2 GM in SODIUM CHLORIDE 0.9% MINIBAG 100 ML IV SCH ×2 (08:19→22:10)
[2019-08-15] MEDS: THIAMINE 100 MG TABLET PO SCH (08:19)
--- NOTE | 2019-08-15 08:26 | XRAY Report ---
PROCEDURE: Hand 3 View RT INDICATIONS: right thumb swelling TECHNIQUE: 3 views of the hand(s) acquired. COMPARISON: None available FINDINGS: Bones: No fractures or dislocations. Normal mineralization. Deformity of remote, suboptimally healed fifth metacarpal fracture with residual angulation. There are scattered periarticular lucencies, par ticularly at the third PIP joint, first MCP and first IP joints. At the distal aspect of the first phalanx tuft, there is cortical irregularity and loss.. Soft tissues: No suspicious soft tissue calcifications. No soft tissue gas or foreign bodies. IMPRESSION: 1. Cortical irregularity and cortical loss at the first distal phalanx tuft suspicious for osteomyeli tis. No soft tissue gas. Correlate clinically. 2. Scattered findings of arthritic changes. 3. Remote fifth metacarpal fracture. Reviewed by: Gracia Mead MD on 08/15/2019 8:24 AM PDT Approved by: Gracia Mead MD on 08/15/2019 8:24 AM PDT Station ID: [id number]
[2019-08-15 08:34] LABS: MUDS CUTOFF CONCENTRATIONS CUTOFF CONC BELOW:
[2019-08-15] MEDS ORDERED: LORazepam 2 MG/ML VIAL IVP PRN (08:36)
--- NOTE | 2019-08-15 08:37 | XRAY Report ---
PROCEDURE: Chest 1 View X-Ray INDICATIONS: pre op TECHNIQUE: One view of the chest was acquired. COMPARISON: 02/08/2018 FINDINGS: Surgical changes and devices: None. Lungs and pleura: There is an ovoid opacity in the lateral left lower lung and blunting of the left h emidiaphragm, and slight thickening of the lateral pleural surface. The right diaphragm is chronicall y elevated and there are mild associated atelectatic changes.. Mediastinum: Mediastinal contours appear normal. Heart size is normal. Bones and chest wall: Deformity of prior remote, healed left rib fractures. Interval resolution of le ft chest subcutaneous emphysema. IMPRESSION: 1. Rounded parenchymal opacity in the inferolateral left hemithorax. This may be remote posttraumatic pleural thickening, possibly a neoplasm. This is new since the prior study and chest CT is recommend ed. 2. Chronic right hemidiaphragm elevation with associated atelectasis. An underlying pneumonia cannot be excluded. 3. Concordant with preliminary report.. Reviewed by: Gracia Mead MD on 08/15/2019 8:35 AM PDT Approved by: Gracia Mead MD on 08/15/2019 8:35 AM PDT Station ID: [id number]
[2019-08-15 08:41] LABS: BILIRUBIN,URINE NEGATIVE (NEGATIVE); GLUCOSE, URINE (UA) NEGATIVE (NEGATIVE); KETONES,URINE (UA) NEGATIVE (NEGATIVE); LEUKOCYTE ESTERASE, URINE NEGATIVE (NEGATIVE); NITRITE,URINE NEGATIVE (NEGATIVE); OCCULT BLOOD,URINE NEGATIVE (NEGATIVE); PH,URINE 6.5 PH (5.0-7.5); PROTEIN,URINE NEGATIVE (NEGATIVE); UROBILINOGEN,URINE 0.2 (NORMAL) E.U./dL (NORMAL)
[2019-08-15 08:42] LABS: CLARITY,URINE CLEAR (CLEAR)
[2019-08-15] MEDS ORDERED: DEXTROSE 50% ABBOJECT 25 GM/50 ML SYRINGE IVP ONE (08:44)
[2019-08-15 08:49] LABS: OPIATE SCREEN, URINE POSITIVE (NEGATIVE)
[2019-08-15 08:50] LABS: AMPHETAMINE SCREEN,URINE NEGATIVE (NEGATIVE); BENZODIAZEPINES SCREEN, URINE NEGATIVE (NEGATIVE); COCAINE SCREEN URINE NEGATIVE (NEGATIVE); METHADONE SCREEN, URINE NEGATIVE (NEGATIVE); METHAMPHETAMINES SCREEN, URINE NEGATIVE (NEGATIVE); OXYCODONE SCREEN, URINE NEGATIVE (NEGATIVE); PROPOXYPHENE SCREEN, URINE NEGATIVE (NEGATIVE); TRICYCLIC ANTIDEPRESSANT,URINE NEGATIVE (NEGATIVE)
[2019-08-15] MEDS ORDERED: DEXTROSE 10% 250 ML IV ONE (08:54)
[2019-08-15] MEDS ORDERED: DEXTROSE 50% ABBOJECT 25 GM/50 ML SYRINGE IVP SCH (08:58)
[2019-08-15] MEDS: DEXTROSE 5% 1,000 ML IV SCH ×2 (09:13→19:51)
[2019-08-15 09:16] LABS: ALBUMIN 4.2 g/dL (3.2-5.5); ALBUMIN/GLOBULIN RATIO 1.8 (1.0-2.2); BILIRUBIN,TOTAL 0.4 mg/dL (0.2-1.0); CALCIUM 9.2 mg/dL (8.5-10.3); CREATININE 1.5 mg/dL (0.6-1.2); TOTAL PROTEIN 6.5 g/dL (6.7-8.2)
--- NOTE | 2019-08-15 14:37 | CONSULTATION NOTE ---
Referring Provider Consult Date: 08/15/19 History of Present Illness - History Obtained From History obtained from: Patient - History of Present Illness HPI Comment/Other: This is a 64-year-old man who complains of pain and swelling to his right thumb for about 10 days. His pain is changed to a sensation of being numb to his right thumb. This numbness is different than the numbness he normally has to his fingers. He does have a history of diabetes mellitus, insulin-dependent with diabetic peripheral neuropathy. He denies any penetrating injury of any kind to his right thumb during this period of time and nothing associated with o nset of symptoms. His symptoms developed spontaneously. He was felt to have an infection to the thumb pad about a week and a half ago, was seen in the emergency room, had incision to the thumb pad and was prescribed Bactrim. The Bactrim was not obtained until 3 to 4 days later. Despite using Bactrim, he is not making progress. He is a smoker and noncompliant with regard to his diabetes. He feels his symptoms to right thumb have worsened although slightly better today and the swelling has improved gradually as well. He denies any drainage from his right thumb. History - Past Medical History Cardiovascular: reports: High cholesterol Respiratory: reports: Pneumonia, Other (Traumatic pneumothroax) Neuro: reports: Peripheral neuropathy Endocrine/Autoimmune: reports: Type 1 diabetes, HyPOthyroidism GI: reports: GERD : reports: None HEENT: reports: None Psych: reports: Depression, Anxiety Musculoskeletal: reports: None Derm: reports: None MRSA Hx?: No - Past Surgical History General: reports: Colonoscopy - Family & Social History Family History: Mother: Mental Illness, Father: CAD Family History Comment/Other: He reports his father from a stroke in his 60s. His mother was also diabetic. Living Situation: With spouse/s.o. Social History Notes: Patient lives at home with his . He has 2 adult kids in their late 30s. He reports smoking 4 to 5 cigarettes a day for the past 40 to 50 years. He reports no alcohol or drug use. Reports his last alcoholic beverage was in December. Denies any history of alcoholism. - Substance History Use: Uses substance without health or social issues: Tobacco (5 cigarettes/day), Alcohol (3 drinks/day), Cannabis (daily) - POLST Patient has POLST: No POLST Status: Full Code Meds/Allgy - Home Medications Home Medications: Ambulatory Orders Medication Instructions Recorded Confirmed Aspirin [Adult Low Dose Aspirin EC] 81 mg PO DAILY 07/03/15 02/06/18 Insulin Aspart [Novolog Flexpen] 3 - 7 unit SQ ACHS 07/03/15 02/06/18 Oxycodone HCl/Acetaminophen 1 - 2 each PO Q6H PRN #14 tablet 08/07/19 [Percocet 5-325 mg Tablet] Sulfamethoxazole/Trimethoprim 1 tab PO [id number] 08/15/19 [Sulfamethoxazole-Tmp Ds Tablet] lisinopriL [Zestril] 2.5 mg PO DAILY 08/15/19 08/15/19 - Allergies Allergies/Adverse Reactions: Allergies Allergy/AdvReac Type Severity Reaction Status Date / Time No Known Drug Allergies Allergy Verified 08/07/19 09:47 Review of Systems - Integumentary Integumentary: reports: Other (Pain and swelling about the distal end of his right thumb) - Neurological Neurological: reports: Numbness Exam - Vital Signs Vital Signs: Vital Signs x48h Temp Pulse Resp BP Pulse Ox 08/15/19 12:25 36.4 C L 62 14 112/50 L 96 08/15/19 08:07 36.4 C L 79 14 128/64 95 - Physical Exam General Appearance: positive: No acute distress Peripheral Pulses: positive: 2+ Extremities: positive: Other (The right thumb shows mild to moderate swelling, mild tenderness, no sinus about right thumb. Tendon function is intact. There is no erythema, no lymphangitis. He has multiple superficial skin fissures to the thumb.) Conclusion and Plan - Lab Results Laboratory Results 08/15/19 10:36: Troponin I High Sens 14.2 08/15/19 08:25: Urine Color LIGHT YELLOW, Urine Clarity CLEAR, Urine pH 6.5, Ur Specific [place] <=1.005, Urine Protein NEGATIVE, Urine Glucose (UA) NEGATIVE, Urine Ketones NEGATIVE, Urine Occult Blood NEGATIVE, Urine Nitrite NEGATIVE, Urine Bilirubin NEGATIVE, Urine Urobilinogen 0.2 (NORMAL), Ur Leukocyte Esterase NEGATIVE, Ur Microscopic Review NOT INDICATED, Urine Culture Comments NOT INDICATED, Urine Opiates Screen POSITIVE H, Ur Oxycodone Screen NEGATIVE, Urine Methadone Screen NEGATIVE, Ur Propoxyphene Screen NEGATIVE, Ur Barbiturates Screen NEGATIVE, Ur Tricyclics Screen NEGATIVE, Ur Phencyclidine Scrn NEGATIVE, Ur Amphetamine Screen NEGATIVE, U Methamphetamines Scrn NEGATIVE, U Benzodiazepines Scrn NEGATIVE, Urine Cocaine Screen NEGATIVE, U Cannabinoids Screen NEGATIVE 08/15/19 06:01: Troponin I High Sens 22.2 H* 08/15/19 04:25: Sodium 125 L, Potassium 4.2, Chloride 90 L, Carbon Dioxide 24, Anion Gap 11.0, BUN 25 H, Creatinine 1.5 H, Estimated GFR (MDRD) 47 L, Glucose 48 L*, Calcium 9.2, Total Bilirubin 0.4, AST 148 H, ALT 84 H, Alkaline Phosphatase 49, Total Protein 6.5 L, Albumin 4.2, Globulin 2.3, Albumin/Globulin Ratio 1.8 08/15/19 04:25: TSH 50.40 H 08/15/19 04:25: Total Creatine Kinase 3404 H* 08/15/19 04:25: Glycated Hemoglobin Cancelled, Hemoglobin A1c Cancelled, Estim Average Glucose Cancelled 08/15/19 04:25: C-Reactive Protein 3.8 H 08/15/19 04:25: ESR 12 08/15/19 04:25: Glycated Hemoglobin 10.7 H, Estim Average Glucose 260 H 08/15/19 04:25: PT 10.7, INR 0.9, APTT 33.1 08/15/19 04:25: Lactic Acid 1.1 08/15/19 04:25: Sodium 123 L, Potassium 4.0, Chloride 90 L, Carbon Dioxide 24, Anion Gap 9.0, BUN 25 H, Creatinine 1.6 H, Estimated GFR (MDRD) 43 L, Glucose 57 L*, Calcium 9.0, Total Bilirubin 0.3, AST 148 H, ALT 86 H, Alkaline Phosphatase 53, Total Protein 6.5 L, Albumin 4.3, Globulin 2.2, Albumin/Globulin Ratio 2.0, Lipase 18 L, Ethyl Alcohol 41.7 08/15/19 04:25: WBC 10.4, RBC 3.22 L, Hgb 10.8 L, Hct 30.1 L, MCV 93.5, MCH 33.5 H, MCHC 35.9, RDW 16.4 H, Plt Count 304, MPV 8.0, Neut # (Auto) 7.9 H, Lymph # (Auto) 1.4 L, [place] # (Auto) 0.7, Eos # (Auto) 0.3, Baso # (Auto) 0.1, Absolute Nucleated RBC 0.00, Nucleated RBC % 0.0 - Diagnostic Imaging Results Diagnostic Imaging Results: positive: Prelim report reviewed, Read independently, Other (The x-rays were reviewed the right thumb does show a freddy cency in the distal portion of the proximal phalanx associated with some degenerative changes to the distal interphalangeal joint. This same lucency can be seen elsewhere in his hand as well. These x-ray features could be consistent with chron) - Diagnosis Diagnosis: Possible osteomyelitis of the right thumb - Plan Plan: Possible osteomyelitis of the right thumb I would recommend a trial of antibioticsPossible osteomyelitis of the right thumb I would recommend a trial of antibiotics using both vancomycin and a cephalosporin. If this does not help, may need to consider surgical intervention. He is not a good surgical candidate at this time, A1c is approximately 11. He has no acute changes to the right thumb such as cellulitis, lymphangitis or a felon. There is no paronychial changes. He may just have a soft tissue problem to the thumb and x- rays may be consistent with degenerative joint disease with a subchondral cyst and sclerosis with osteophyte.
--- NOTE | 2019-08-15 17:13 | PHARMACY PROGRESS NOTE ---
- Best Possible Medication History Admit Date and Time: 08/15/19 0543 Processed by: Pharmacy Medication History completed: Yes Patient Interview: Completed Secondary Source(s): Pharmacy records, Insurance records As the person ultimately responsible for medication therapy, providers are able to order a medication from an existing home medication list in [facility] via the "Reconcile Routine" prior to Confirmation of that medication by lab support technician. Such practice is discouraged except when the physician, in their clinical judgment, deems that a medical need exists for a medication without regard to previous use.
--- NOTE | 2019-08-15 19:11 | PROVIDER PROGRESS NOTE ---
Assessment/Plan - Problem List (1) Acute osteomyelitis of phalanx of digit of hand Qualifiers: Laterality: right Qualified Code(s): M86.141 - Other acute osteomyelitis, right hand Assessment/Plan: The Orthopedic surgeon saw the patient for consult today and thinks this could be chronic osteomyelitis versus DJD changes with cyst. The Orthopedist recommends IV antibiotics. We will continue with IV Vanco and IV Cefepime. Blood cultures were drawn, await results. The blood cultures are negative to date (2) Chronic osteomyelitis Assessment/Plan: As above (3) Hypoglycemia due to insulin Assessment/Plan: The information from his insulin pump was downloaded and he has innumerable low glucose levels in the 40s to 60s. The diabetic nurse educator Mica is working on getting the settings improved, contacting his java oracle developer in [facility] [place]. Continue with nutrition management, insulin pump treatment for his sugar. The A1c returned back at 10.7, which is not very likely to be accurate, given all the low glucoses. Will repeat the A1c level tomorrow, as this could have been a lab error. (4) Rhabdomyolysis Assessment/Plan: CK greater than 3000. I spent a long time at bedside with patient and his in the room thinking about when he may have potentially had muscle damage. The patient remembered that he fell off of a tractor approximately 3 to 4 weeks ago. There was no ER visit or labs drawn then to know if a CK level could have been extremely elevated. This may be the resulting improvement in CK from that trauma. His JOEY may have been a result of this Rhabdo. IV hydration gently has been ordered. Follow serum CK daily. (5) Acute kidney injury Assessment/Plan: Possibly from underlying longstanding diabetes and new rhabdo. Follow BMP daily. Avoid nephrotoxins (6) Hyponatremia Assessment/Plan: Possibly related to hyperglycemia. Replace with IV saline. Follow BMP daily (7) Abnormal LFTs Assessment/Plan: His AST to ALT ratio suggests alcohol intake. He also had alcohol present on serum toxicology screen at admission. I spent a long time in his room with at bedside reviewing where there could be possible alcohol intake. He states his last drink of alcohol was in December 2018. He does admit to using alcohol "when he barbecues". The also shakes her head that she does not see him take in any alcohol. Consider hepatorenal syndrome as well as the cause for this elevated LFT. Follow LFTs daily. (8) Hypothyroidism Qualifiers: Assessment/Plan: His TSH level at admission was 50. This indicates severe hypothyroidism or under dosing of his Synthroid dose. I spent a long time at his bedside with the they are confirming that he takes all his prescribed medications and he reports that he is very organized and takes everything as prescribed. Continue his thyroid replacement dose. We will recheck a TSH level, to evaluate if this could have been a lab error. - Current Meds Current Meds: Current Medications Generic Name Dose Route Start Last Admin Trade Name Fortunato PRN Reason Stop Dose Admin Cefepime HCl 2 gm/ Sodium 100 mls @ 200 mls/hr 08/15/19 09:00 08/15/19 09:01 Chloride IV Infused BID RADHA Infusion Sodium Chloride 1,000 mls @ 150 mls/hr 08/15/19 08:00 08/15/19 16:24 Normal Saline 0.9% IV 0 mls/hr .Q6H40M RADHA Infusion Dextrose 1,000 mls @ 100 mls/hr 08/15/19 09:00 08/15/19 09:13 D5w IV 100 mls/hr .Q10H RADHA Administration Multivitamins 1 tab 08/15/19 08:00 08/15/19 08:19 Theragran PO 1 tab DAILYWM RADHA Administration Sodium Chloride 10 ml 08/15/19 09:00 08/15/19 08:19 Normal Saline Flush 0.9% IVP Not Given 0100,0900,1700 RADHA Thiamine HCl 100 mg 08/15/19 09:00 08/15/19 08:19 Vitamin B-1 PO 100 mg DAILY RADHA Administration - Lab Result Fish Bone Diagrams: 08/16/19 05:05 08/16/19 05:05 - Additional Planning My Orders: My Active Orders 08/15/19 inspector printed circuit boards Consult [CONS] Routine 08/15/19 08:36 LORazepam INJ [Ativan Inj (Vial)] 1 mg IVP Q30M PRN 08/15/19 08:37 Blood Glucose POC [RC] Routine CIWA - AR Score Card [RC] Routine Routine Neuro Check [RC] Routine Routine 08/15/19 Lunch Carb-controlled Diet [DIET] 08/16/19 07:00 Levothyroxine [Synthroid] 112 mcg PO QDAC Levothyroxine [Synthroid] 25 mcg PO QDAC 08/16/19 09:00 Aspirin EC [Ecotrin] 81 mg PO DAILY Subjective - Subjective Patient Reports: Feeling Better, Other (Sleepy) Objective Vital Signs: Vital Signs - 24 hr 08/15/19 08/15/19 08/15/19 04:01 05:56 08:07 Temperature 36.4 C L 36.4 C L Heart Rate 71 78 Heart Rate [ 79 Radial] Respiratory 18 16 14 Rate Blood Pressure 114/68 155/98 H Blood Pressure 128/64 [Right Brachial artery] O2 Saturation 97 96 95 08/15/19 08/15/19 08/15/19 12:25 16:50 18:18 Temperature 36.4 C L 36.7 C 36.7 C Heart Rate 64 Heart Rate [ 62 76 Radial] Respiratory 14 20 20 Rate Blood Pressure Blood Pressure 112/50 L 143/58 H [Right Brachial artery] O2 Saturation 96 96 93 Oxygen O2 Source Room air I&O (Last 24 Hrs): Intake and Output Totals x24h 08/13/19 08/14/19 08/15/19 23:59 23:59 23:59 Intake Total 3457.5 Output Total 2975 Balance 482.5 General: Alert, Oriented x3 HEENT: Mucous membr. moist/pink, Other (Poorly kempt) Neck: Supple Neuro: Alert, Non Focal Cardiovascular: Regular rate Respiratory: No respiratory distress Abdomen: Soft Extremities: No edema, Other (The joints of the right hand are slightly swollen but not warm or red. The distal right thumb has multiple fissures on the skin, is swollen but has no redness or warmth.) - Results Results: Laboratory Results WBC 10.4 x10^3/uL (4.8-10.8) 08/15/19 04:25 RBC 3.22 10^6/uL (4.70-6.10) L 08/15/19 04:25 Hgb 10.8 g/dL (14.0-18.0) L 08/15/19 04:25 Hct 30.1 % (42.0-52.0) L 08/15/19 04:25 MCV 93.5 fL (80.0-94.0) 08/15/19 04:25 MCH 33.5 pg (27.0-31.0) H 08/15/19 04:25 MCHC 35.9 g/dL (32.0-36.0) 08/15/19 04:25 RDW 16.4 % (12.0-15.0) H 08/15/19 04:25 Plt Count 304 10^3/uL (130-450) 08/15/19 04:25 MPV 8.0 fL (7.4-11.4) 08/15/19 04:25 Neut # (Auto) 7.9 10^3/uL (1.5-6.6) H 08/15/19 04:25 Lymph # (Auto) 1.4 10^3/uL (1.5-3.5) L 08/15/19 04:25 [place] # (Auto) 0.7 10^3/uL (0.0-1.0) 08/15/19 04:25 Eos # (Auto) 0.3 10^3/uL (0.0-0.7) 08/15/19 04:25 Baso # (Auto) 0.1 10^3/uL (0.0-0.1) 08/15/19 04:25 Absolute Nucleated RBC 0.00 x10^3/uL 08/15/19 04:25 Nucleated RBC % 0.0 /100WBC 08/15/19 04:25 ESR 12 mm/Hr (0-20) 08/15/19 04:25 PT 10.7 secs (9.9-12.6) 08/15/19 04:25 INR 0.9 (0.8-1.2) 08/15/19 04:25 APTT 33.1 secs (24.9-33.3) 08/15/19 04:25 Sodium 128 mmol/L (135-145) L 08/15/19 17:10 Potassium 4.0 mmol/L (3.5-5.0) 08/15/19 04:25 Potassium 4.2 mmol/L (3.5-5.0) 08/15/19 04:25 Chloride 90 mmol/L (101-111) L 08/15/19 04:25 Chloride 90 mmol/L (101-111) L 08/15/19 04:25 Carbon Dioxide 24 mmol/L (21-32) 08/15/19 04:25 Carbon Dioxide 24 mmol/L (21-32) 08/15/19 04:25 Anion Gap 9.0 (6-13) 08/15/19 04:25 Anion Gap 11.0 (6-13) 08/15/19 04:25 BUN 25 mg/dL (6-20) H 08/15/19 04:25 BUN 25 mg/dL (6-20) H 08/15/19 04:25 Creatinine 1.5 mg/dL (0.6-1.2) H 08/15/19 04:25 Creatinine 1.6 mg/dL (0.6-1.2) H 08/15/19 04:25 Estimated GFR (MDRD) 43 (>89) L 08/15/19 04:25 Estimated GFR (MDRD) 47 (>89) L 08/15/19 04:25 Glucose 48 mg/dL (70-100) L* 08/15/19 04:25 Glucose 57 mg/dL (70-100) L* 08/15/19 04:25 Glycated Hemoglobin 10.7 % (4.6-6.2) H 08/15/19 04:25 Glycated Hemoglobin Cancelled 08/15/19 04:25 Hemoglobin A1c Cancelled 08/15/19 04:25 Estim Average Glucose 260 (70-100) H 08/15/19 04:25 Estim Average Glucose Cancelled 08/15/19 04:25 Lactic Acid 1.1 mmol/L (0.5-2.2) 08/15/19 04:25 Calcium 9.0 mg/dL (8.5-10.3) 08/15/19 04:25 Calcium 9.2 mg/dL (8.5-10.3) 08/15/19 04:25 Total Bilirubin 0.3 mg/dL (0.2-1.0) 08/15/19 04:25 Total Bilirubin 0.4 mg/dL (0.2-1.0) 08/15/19 04:25 AST 148 IU/L (10-42) H 08/15/19 04:25 AST 148 IU/L (10-42) H 08/15/19 04:25 ALT 84 IU/L (10-60) H 08/15/19 04:25 ALT 86 IU/L (10-60) H 08/15/19 04:25 Alkaline Phosphatase 49 IU/L (42-121) 08/15/19 04:25 Alkaline Phosphatase 53 IU/L (42-121) 08/15/19 04:25 Total Creatine Kinase 3404 IU/L (22-269) H* 08/15/19 04:25 Troponin I High Sens 14.2 ng/L (2.3-19.7) 08/15/19 10:36 C-Reactive Protein 3.8 mg/dL (0-1.0) H 08/15/19 04:25 Total Protein 6.5 g/dL (6.7-8.2) L 08/15/19 04:25 Total Protein 6.5 g/dL (6.7-8.2) L 08/15/19 04:25 Albumin 4.2 g/dL (3.2-5.5) 08/15/19 04:25 Albumin 4.3 g/dL (3.2-5.5) 08/15/19 04:25 Globulin 2.2 g/dL (2.1-4.2) 08/15/19 04:25 Globulin 2.3 g/dL (2.1-4.2) 08/15/19 04:25 Albumin/Globulin Ratio 1.8 (1.0-2.2) 08/15/19 04:25 Albumin/Globulin Ratio 2.0 (1.0-2.2) 08/15/19 04:25 Lipase 18 U/L (22-51) L 08/15/19 04:25 TSH 50.40 uIU/mL (0.34-5.60) H 08/15/19 04:25 Urine Color LIGHT YELLOW 08/15/19 08:25 Urine Clarity CLEAR (CLEAR) 08/15/19 08:25 Urine pH 6.5 PH (5.0-7.5) 08/15/19 08:25 Ur Specific [place] <=1.005 (1.002-1.030) 08/15/19 08:25 Urine Protein NEGATIVE mg/dL (NEGATIVE) 08/15/19 08:25 Urine Glucose (UA) NEGATIVE mg/dL (NEGATIVE) 08/15/19 08:25 Urine Ketones NEGATIVE mg/dL (NEGATIVE) 08/15/19 08:25 Urine Occult Blood NEGATIVE (NEGATIVE) 08/15/19 08:25 Urine Nitrite NEGATIVE (NEGATIVE) 08/15/19 08:25 Urine Bilirubin NEGATIVE (NEGATIVE) 08/15/19 08:25 Urine Urobilinogen 0.2 (NORMAL) E.U./dL (NORMAL) 08/15/19 08:25 Ur Leukocyte Esterase NEGATIVE (NEGATIVE) 08/15/19 08:25 Ur Microscopic Review NOT INDICATED 08/15/19 08:25 Urine Culture Comments NOT INDICATED 08/15/19 08:25 Urine Opiates Screen POSITIVE (NEGATIVE) H 08/15/19 08:25 Ur Oxycodone Screen NEGATIVE (NEGATIVE) 08/15/19 08:25 Urine Methadone Screen NEGATIVE (NEGATIVE) 08/15/19 08:25 Ur Propoxyphene Screen NEGATIVE (NEGATIVE) 08/15/19 08:25 Ur Barbiturates Screen NEGATIVE (NEGATIVE) 08/15/19 08:25 Ur Tricyclics Screen NEGATIVE (NEGATIVE) 08/15/19 08:25 Ur Phencyclidine Scrn NEGATIVE (NEGATIVE) 08/15/19 08:25 Ur Amphetamine Screen NEGATIVE (NEGATIVE) 08/15/19 08:25 U Methamphetamines Scrn NEGATIVE (NEGATIVE) 08/15/19 08:25 U Benzodiazepines Scrn NEGATIVE (NEGATIVE) 08/15/19 08:25 Urine Cocaine Screen NEGATIVE (NEGATIVE) 08/15/19 08:25 U Cannabinoids Screen NEGATIVE (NEGATIVE) 08/15/19 08:25 Ethyl Alcohol 41.7 mg/dL 08/15/19 04:25 - Procedures Procedures: Procedures COLONOSCOPY (12/11/13)
[2019-08-15] MEDS: VANCOMYCIN INJ 1 GM in SODIUM CHLORIDE 0.9% 250 ML IV SCH (22:48)
[2019-08-16] MEDS: SODIUM CHLORIDE FLUSH 0.9% 10 ML SYRINGE IVP SCH ×3 (00:53→17:13)
[2019-08-16 05:56] LABS: BASOPHILS # (AUTO) 0.1 10^3/uL (0.0-0.1); BASOPHILS % (AUTO) 1.3 %; EOSINOPHILS # (AUTO) 0.3 10^3/uL (0.0-0.7); EOSINOPHILS % (AUTO) 5.6 %; HGB - HEMOGLOBIN 11.3 g/dL (14.0-18.0); LYMPHOCYTES # (AUTO) 1.1 10^3/uL (1.5-3.5); LYMPHOCYTES % (AUTO) 18.7 %; MEAN CORPUSCULAR HEMOGLOBIN 31.2 pg (27.0-31.0); MEAN CORPUSCULAR HGB CONC 33.7 g/dL (32.0-36.0); MEAN CORPUSCULAR VOLUME 92.5 fL (80.0-94.0); MEAN PLATELET VOLUME 8.4 fL (7.4-11.4); MONOCYTES # (AUTO) 0.6 10^3/uL (0.0-1.0); MONOCYTES % (AUTO) 9.9 %; NEUTROPHILS # (AUTO) 3.9 10^3/uL (1.5-6.6); NEUTROPHILS % (AUTO) 64.2 %; PLT - PLATELET COUNT 355 10^3/uL (130-450); RED BLOOD COUNT 3.62 10^6/uL (4.70-6.10); RED CELL DISTRIBUTION WIDTH 16.9 % (12.0-15.0); WHITE BLOOD COUNT 6.1 x10^3/uL (4.8-10.8)
[2019-08-16 06:10] LABS: HB2 TOTAL 11.7 g/dL; HEMOGLOBIN A1C 0.68 g/dL; HEMOGLOBIN A1C % 7.5 % (4.6-6.2)
[2019-08-16 06:14] LABS: CALCIUM 8.1 mg/dL (8.5-10.3); CREATININE 1.3 mg/dL (0.6-1.2); CRP - C-REACTIVE PROTEIN 1.7 mg/dL (0-1.0); MAGNESIUM 2.2 mg/dL (1.7-2.8); PHOSPHORUS 2.8 mg/dL (2.5-4.6)
[2019-08-16] MEDS: SODIUM CHLORIDE 0.9% 1,000 ML IV SCH ×3 (06:39→22:48)
[2019-08-16] MEDS: LEVOTHYROXINE 25 MCG TABLET PO SCH (06:45)
[2019-08-16] MEDS: LEVOTHYROXINE 112 MCG TABLET PO SCH (06:46)
[2019-08-16] MEDS: MULTIVITAMIN TABLET PO SCH (07:51)
[2019-08-16] MEDS: ASPIRIN EC 81 MG TABLET PO SCH (09:01)
[2019-08-16] MEDS: ENOXAPARIN 40 MG/0.4 ML SYRINGE SUBQ SCH (09:01)
[2019-08-16] MEDS: CEFEPIME 2 GM in SODIUM CHLORIDE 0.9% MINIBAG 100 ML IV SCH ×2 (09:01→21:36)
[2019-08-16] MEDS: THIAMINE 100 MG TABLET PO SCH (09:01)
--- NOTE | 2019-08-16 09:20 | PROVIDER PROGRESS NOTE ---
Assessment/Plan - Problem List (1) Cellulitis of right thumb Assessment/Plan: The Orthopedic surgeon saw the patient for consult yesterday and felt this could be chronic osteomyelitis versus DJD changes with cyst of the bone. Today the Orthopod felt this was a skin/cellulitis infection, and that the bony finding was a red marsh, such as cyst and that tgere is no osteo. He did not feel an MRI was needed. The Orthopedist recommends antibiotics. Will continue with IV Vanco and IV Cefepime. Today is the beginning of day 2. Blood cultures were drawn, await results. The blood cultures are negative to date. (2) Hypoglycemia due to insulin Assessment/Plan: The information from his insulin pump was downloaded and he has innumerable low glucose levels in the 40s to 60s. The diabetic nurse educator Mica is working on getting the settings improved, contacted his Therapy Site Coordinator in [facility]. The patient was not ordered a different basal rate, he may want to get a different Therapy Site Coordinator, who is more available to his needs. Continue with nutrition management, insulin pump treatment for his sugar, adjusting the basal rate. The A1c was 10.7 at admission, which is not very likely to be accurate, given all the low glucoses. It was redone this morning with a result of 7.5. Mica, the Diabetic Nurse Educator, will write an SI, as the first A1c could have been a lab error. (3) Rhabdomyolysis Assessment/Plan: CK at admission was greater than 3000. Today down to 1500. I spent a long time at bedside with patient and his in the room yesterday, reviewing when he may have potentially had muscle damage. The patient remembered that he fell off of a tractor approximately 3 to 4 weeks ago. There was no ER visit or labs drawn then to know if a CK level could have been extremely elevated. This may be the resulting improvement in CK from that trauma. His JOEY may have been a result of this Rhabdo. IV hydration gently has been ordered. Follow serum CK daily. (4) Acute kidney injury Assessment/Plan: Possibly from underlying longstanding diabetes and new rhabdo. Follow BMP daily. Avoid nephrotoxins (5) Hyponatremia Assessment/Plan: Na of 125 improved to 133 today. Possibly this is pseudohyponatremia related to hyperglycemia. Replace with IV saline. Follow BMP daily (6) Elevated LFTs Assessment/Plan: His AST to ALT ratio suggests alcohol intake. He also had alcohol present on serum toxicology screen at admission. I spent a long time in his room, with at bedside, reviewing where there could be possible alcohol intake. He states his last drink of alcohol was in December 2018. 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 The also shakes her head No, that she does not see him consume any alcohol. Not even from cough suppressant, for example. Consider hepatorenal syndrome as well as the cause for this elevated LFTs. Follow LFTs daily. (7) Hypothyroidism Qualifiers: Assessment/Plan: His TSH level at admission was 50. This indicates severe hypothyroidism or under dosing of his Synthroid dose. I spent a long time at his bedside with the and they confirmed that he takes all his prescribed medications and he reports that he is very organized and takes everything as prescribed. Continue his thyroid replacement dose. We will recheck a TSH level, to evaluate if this could have been a lab error (as well). - Current Meds Current Meds: Current Medications Generic Name Dose Route Start Last Admin Trade Name Fortunato PRN Reason Stop Dose Admin Aspirin 81 mg 08/16/19 09:00 08/16/19 09:01 Ecotrin PO 81 mg DAILY RADHA Administration Enoxaparin Sodium 40 mg 08/16/19 09:00 08/16/19 09:01 Lovenox SUBQ 40 mg DAILY RADHA Administration Cefepime HCl 2 gm/ Sodium 100 mls @ 200 mls/hr 08/15/19 09:00 08/16/19 09:01 Chloride IV 100 mls/hr BID RADHA Administration Vancomycin HCl 1 gm/ Sodium 250 mls @ 167 mls/hr 08/15/19 22:00 08/16/19 00:53 Chloride IV Infused Q18H RADHA Infusion Sodium Chloride 1,000 mls @ 150 mls/hr 08/15/19 08:00 08/16/19 06:39 Normal Saline 0.9% IV 150 mls/hr .Q6H40M RADHA Administration Levothyroxine Sodium 112 mcg 08/16/19 07:00 08/16/19 06:46 Synthroid PO 112 mcg QDAC RADHA Administration Levothyroxine Sodium 25 mcg 08/16/19 07:00 08/16/19 06:45 Synthroid PO 25 mcg QDAC RADHA Administration Multivitamins 1 tab 08/15/19 08:00 08/16/19 07:51 Theragran PO 1 tab DAILYWM RADHA Administration Sodium Chloride 10 ml 08/15/19 09:00 08/16/19 09:06 Normal Saline Flush 0.9% IVP Not Given 0100,0900,1700 RADHA Thiamine HCl 100 mg 08/15/19 09:00 08/16/19 09:01 Vitamin B-1 PO 100 mg DAILY RADHA Administration - Lab Result Fish Bone Diagrams: 08/16/19 05:05 08/16/19 05:05 - Additional Planning My Orders: My Active Orders 08/15/19 08:36 LORazepam INJ [Ativan Inj (Vial)] 1 mg IVP Q30M PRN 08/15/19 08:37 CIWA - AR Score Card [RC] Q4H Q4H Neuro Check [RC] Q8H Q8H 08/15/19 Lunch Carb-controlled Diet [DIET] 08/16/19 07:00 Levothyroxine [Synthroid] 112 mcg PO QDAC Levothyroxine [Synthroid] 25 mcg PO QDAC 08/16/19 09:00 Aspirin EC [Ecotrin] 81 mg PO DAILY Subjective - Subjective Patient Reports: Feeling Better, Resting Comfortably Objective Vital Signs: Vital Signs - 24 hr 08/15/19 08/15/19 08/15/19 12:25 16:50 18:18 Temperature 36.4 C L 36.7 C 36.7 C Heart Rate 64 Heart Rate [ 62 76 Radial] Respiratory 14 20 20 Rate Blood Pressure 112/50 L 143/58 H [Right Brachial artery] O2 Saturation 96 96 93 08/15/19 08/16/19 08/16/19 21:00 00:04 03:52 Temperature 37.0 C 36.9 C 36.7 C Heart Rate Heart Rate [ 66 74 78 Radial] Respiratory 20 20 20 Rate Blood Pressure 106/36 L 98/53 L 123/70 [Right Brachial artery] O2 Saturation 94 94 99 08/16/19 08:45 Temperature 36.8 C Heart Rate Heart Rate [ 72 Radial] Respiratory 18 Rate Blood Pressure 121/56 L [Right Brachial artery] O2 Saturation 96 Oxygen O2 Source Room air I&O (Last 24 Hrs): Intake and Output Totals x24h 0608/15/19 08/16/19 23:59 23:59 23:59 Intake Total 4867.5 1352.5 Output Total 3475 1350 Balance 1392.5 2.5 General: Alert, Oriented x3 HEENT: Mucous membr. moist/pink Neck: Supple Neuro: Alert, Non Focal Cardiovascular: Regular rate Respiratory: No respiratory distress Abdomen: Soft Extremities: Other (No clubbing cyanosis or edema. The right hand has swollen joints but they are not warm or red. The right thumb has multiple fissures, is swollen but not red or warm) - Results Results: Laboratory Results WBC 6.1 x10^3/uL (4.8-10.8) 08/16/19 05:05 RBC 3.62 10^6/uL (4.70-6.10) L 08/16/19 05:05 Hgb 11.3 g/dL (14.0-18.0) L 08/16/19 05:05 Hct 33.5 % (42.0-52.0) L 08/16/19 05:05 MCV 92.5 fL (80.0-94.0) 08/16/19 05:05 MCH 31.2 pg (27.0-31.0) H 08/16/19 05:05 MCHC 33.7 g/dL (32.0-36.0) 08/16/19 05:05 RDW 16.9 % (12.0-15.0) H 08/16/19 05:05 Plt Count 355 10^3/uL (130-450) 08/16/19 05:05 MPV 8.4 fL (7.4-11.4) 08/16/19 05:05 Neut # (Auto) 3.9 10^3/uL (1.5-6.6) 08/16/19 05:05 Lymph # (Auto) 1.1 10^3/uL (1.5-3.5) L 08/16/19 05:05 [place] # (Auto) 0.6 10^3/uL (0.0-1.0) 08/16/19 05:05 Eos # (Auto) 0.3 10^3/uL (0.0-0.7) 08/16/19 05:05 Baso # (Auto) 0.1 10^3/uL (0.0-0.1) 08/16/19 05:05 Absolute Nucleated RBC 0.00 x10^3/uL 08/16/19 05:05 Nucleated RBC % 0.0 /100WBC 08/16/19 05:05 ESR 12 mm/Hr (0-20) 08/15/19 04:25 PT 10.7 secs (9.9-12.6) 08/15/19 04:25 INR 0.9 (0.8-1.2) 08/15/19 04:25 APTT 33.1 secs (24.9-33.3) 08/15/19 04:25 Sodium 133 mmol/L (135-145) L 08/16/19 05:05 Potassium 4.2 mmol/L (3.5-5.0) 08/16/19 05:05 Chloride 100 mmol/L (101-111) L 08/16/19 05:05 Carbon Dioxide 24 mmol/L (21-32) 08/16/19 05:05 Anion Gap 9.0 (6-13) 08/16/19 05:05 BUN 17 mg/dL (6-20) 08/16/19 05:05 Creatinine 1.3 mg/dL (0.6-1.2) H 08/16/19 05:05 Estimated GFR (MDRD) 55 (>89) L 08/16/19 05:05 Glucose 80 mg/dL (70-100) 08/16/19 05:05 Glycated Hemoglobin 7.5 % (4.6-6.2) H 08/16/19 05:05 Hemoglobin A1c Cancelled 08/15/19 04:25 Estim Average Glucose 169 (70-100) H 08/16/19 05:05 Lactic Acid 1.1 mmol/L (0.5-2.2) 08/15/19 04:25 Calcium 8.1 mg/dL (8.5-10.3) L 08/16/19 05:05 Phosphorus 2.8 mg/dL (2.5-4.6) 08/16/19 05:05 Magnesium 2.2 mg/dL (1.7-2.8) 08/16/19 05:05 Total Bilirubin 0.3 mg/dL (0.2-1.0) 08/15/19 04:25 Total Bilirubin 0.4 mg/dL (0.2-1.0) 08/15/19 04:25 AST 148 IU/L (10-42) H 08/15/19 04:25 AST 148 IU/L (10-42) H 08/15/19 04:25 ALT 84 IU/L (10-60) H 08/15/19 04:25 ALT 86 IU/L (10-60) H 08/15/19 04:25 Alkaline Phosphatase 49 IU/L (42-121) 08/15/19 04:25 Alkaline Phosphatase 53 IU/L (42-121) 08/15/19 04:25 Total Creatine Kinase 1550 IU/L (22-269) H* 08/16/19 05:05 Troponin I High Sens 14.2 ng/L (2.3-19.7) 08/15/19 10:36 C-Reactive Protein 1.7 mg/dL (0-1.0) H 08/16/19 05:05 Total Protein 6.5 g/dL (6.7-8.2) L 08/15/19 04:25 Total Protein 6.5 g/dL (6.7-8.2) L 08/15/19 04:25 Albumin 4.2 g/dL (3.2-5.5) 08/15/19 04:25 Albumin 4.3 g/dL (3.2-5.5) 08/15/19 04:25 Globulin 2.2 g/dL (2.1-4.2) 08/15/19 04:25 Globulin 2.3 g/dL (2.1-4.2) 08/15/19 04:25 Albumin/Globulin Ratio 1.8 (1.0-2.2) 08/15/19 04:25 Albumin/Globulin Ratio 2.0 (1.0-2.2) 08/15/19 04:25 Lipase 18 U/L (22-51) L 08/15/19 04:25 TSH 50.40 uIU/mL (0.34-5.60) H 08/15/19 04:25 Urine Color LIGHT YELLOW 08/15/19 08:25 Urine Clarity CLEAR (CLEAR) 08/15/19 08:25 Urine pH 6.5 PH (5.0-7.5) 08/15/19 08:25 Ur Specific [place] <=1.005 (1.002-1.030) 08/15/19 08:25 Urine Protein NEGATIVE mg/dL (NEGATIVE) 08/15/19 08:25 Urine Glucose (UA) NEGATIVE mg/dL (NEGATIVE) 08/15/19 08:25 Urine Ketones NEGATIVE mg/dL (NEGATIVE) 08/15/19 08:25 Urine Occult Blood NEGATIVE (NEGATIVE) 08/15/19 08:25 Urine Nitrite NEGATIVE (NEGATIVE) 08/15/19 08:25 Urine Bilirubin NEGATIVE (NEGATIVE) 08/15/19 08:25 Urine Urobilinogen 0.2 (NORMAL) E.U./dL (NORMAL) 08/15/19 08:25 Ur Leukocyte Esterase NEGATIVE (NEGATIVE) 08/15/19 08:25 Ur Microscopic Review NOT INDICATED 08/15/19 08:25 Urine Culture Comments NOT INDICATED 08/15/19 08:25 Urine Opiates Screen POSITIVE (NEGATIVE) H 08/15/19 08:25 Ur Oxycodone Screen NEGATIVE (NEGATIVE) 08/15/19 08:25 Urine Methadone Screen NEGATIVE (NEGATIVE) 08/15/19 08:25 Ur Propoxyphene Screen NEGATIVE (NEGATIVE) 08/15/19 08:25 Ur Barbiturates Screen NEGATIVE (NEGATIVE) 08/15/19 08:25 Ur Tricyclics Screen NEGATIVE (NEGATIVE) 08/15/19 08:25 Ur Phencyclidine Scrn NEGATIVE (NEGATIVE) 08/15/19 08:25 Ur Amphetamine Screen NEGATIVE (NEGATIVE) 08/15/19 08:25 U Methamphetamines Scrn NEGATIVE (NEGATIVE) 08/15/19 08:25 U Benzodiazepines Scrn NEGATIVE (NEGATIVE) 08/15/19 08:25 Urine Cocaine Screen NEGATIVE (NEGATIVE) 08/15/19 08:25 U Cannabinoids Screen NEGATIVE (NEGATIVE) 08/15/19 08:25 Ethyl Alcohol 41.7 mg/dL 08/15/19 04:25 - Procedures Procedures: Procedures COLONOSCOPY (12/11/13)
[2019-08-16 16:06] LABS: HEMOGLOBIN A1C % 7.4 % (4.6-6.2)
[2019-08-16 16:10] LABS: HEMOGLOBIN A1C 0.61 g/dL
[2019-08-16] MEDS: VANCOMYCIN INJ 1 GM in SODIUM CHLORIDE 0.9% 250 ML IV SCH (17:13)
--- NOTE | 2019-08-16 17:36 | PROVIDER PROGRESS NOTE ---
Subjective - General Admit Date: 08/15/19 - Review of Systems Wound/Incisions: positive: Other (Most of his discomfort to his right thumb is localized to the thumb pad where he had previous incision. His incision is clean and dry to right thumb. Both hands had numbness this morning. He has swelling to the right thumb and discomfort with direct pressure to the thumb pad. He feels that he is) Neurological: All Other Systems: positive: Reviewed and negative Objective - Patient Data Vital Signs: Vital Signs x48h Temp Pulse Pulse Resp BP Pulse Ox 08/16/19 16:11 36.9 C 86 18 141/71 H 100 08/16/19 12:24 36.7 C 76 18 147/75 H 99 Weight: Weight 08/14/19 08/15/19 08/16/19 23:59 23:59 23:59 Weight (kg) 77.5 kg Intake & Output: Intake and Output Totals x24h 08/14/19 08/15/19 08/16/19 23:59 23:59 23:59 Intake Total 4867.5 3247.5 Output Total 3475 2200 Balance 1392.5 1047.5 - Lab Results Lab Results: 08/16/19 05:05 08/16/19 05:05 Other Lab Results: Lab Results x24hrs 08/16/19 08/16/19 08/16/19 Range/Units 05:05 05:05 05:05 WBC 6.1 (4.8-10.8) x10^3/uL RBC 3.62 L (4.70-6.10) 10^6/uL Hgb 11.3 L (14.0-18.0) g/dL Hct 33.5 L (42.0-52.0) % MCV 92.5 (80.0-94.0) fL MCH 31.2 H (27.0-31.0) pg MCHC 33.7 (32.0-36.0) g/dL RDW 16.9 H (12.0-15.0) % Plt Count 355 (130-450) 10^3/uL MPV 8.4 (7.4-11.4) fL Neut # (Auto) 3.9 (1.5-6.6) 10^3/uL Lymph # (Auto) 1.1 L (1.5-3.5) 10^3/uL [place] # (Auto) 0.6 (0.0-1.0) 10^3/uL Eos # (Auto) 0.3 (0.0-0.7) 10^3/uL Baso # (Auto) 0.1 (0.0-0.1) 10^3/uL Absolute Nucleated RBC 0.00 x10^3/uL Nucleated RBC % 0.0 /100WBC Sodium 133 L (135-145) mmol/L Potassium 4.2 (3.5-5.0) mmol/L Chloride 100 L (101-111) mmol/L Carbon Dioxide 24 (21-32) mmol/L Anion Gap 9.0 (6-13) BUN 17 (6-20) mg/dL Creatinine 1.3 H (0.6-1.2) mg/dL Estimated GFR (MDRD) 55 L (>89) Glucose 80 (70-100) mg/dL Glycated Hemoglobin 7.5 H (4.6-6.2) % Estim Average Glucose 169 H (70-100) Calcium 8.1 L (8.5-10.3) mg/dL Phosphorus 2.8 (2.5-4.6) mg/dL Magnesium 2.2 (1.7-2.8) mg/dL Total Creatine Kinase 1550 H* (22-269) IU/L C-Reactive Protein 1.7 H (0-1.0) mg/dL 08/15/19 Range/Units 04:25 WBC (4.8-10.8) x10^3/uL RBC (4.70-6.10) 10^6/uL Hgb (14.0-18.0) g/dL Hct (42.0-52.0) % MCV (80.0-94.0) fL MCH (27.0-31.0) pg MCHC (32.0-36.0) g/dL RDW (12.0-15.0) % Plt Count (130-450) 10^3/uL MPV (7.4-11.4) fL Neut # (Auto) (1.5-6.6) 10^3/uL Lymph # (Auto) (1.5-3.5) 10^3/uL [place] # (Auto) (0.0-1.0) 10^3/uL Eos # (Auto) (0.0-0.7) 10^3/uL Baso # (Auto) (0.0-0.1) 10^3/uL Absolute Nucleated RBC x10^3/uL Nucleated RBC % /100WBC Sodium (135-145) mmol/L Potassium (3.5-5.0) mmol/L Chloride (101-111) mmol/L Carbon Dioxide (21-32) mmol/L Anion Gap (6-13) BUN (6-20) mg/dL Creatinine (0.6-1.2) mg/dL Estimated GFR (MDRD) (>89) Glucose (70-100) mg/dL Glycated Hemoglobin 7.4 H (4.6-6.2) % Estim Average Glucose 166 H (70-100) Calcium (8.5-10.3) mg/dL Phosphorus (2.5-4.6) mg/dL Magnesium (1.7-2.8) mg/dL Total Creatine Kinase (22-269) IU/L C-Reactive Protein (0-1.0) mg/dL - Imaging Results Radiology Imaging: negative: EMP read indepedently (I have independently visuali zed x-rays of the right hand. The changes to the right thumb distal interphalangeal joint of joint space narrowing, subchondral sclerosis and subchondral cyst are consistent with osteoarthritis. Similar subchondral cysts are at the metacarpal phalangeal joint of the rig) - Current Medications Current Medications: Current Medications Generic Name Dose Route Start Last Admin Trade Name Freq PRN Reason Stop Dose Admin Aspirin 81 mg 08/16/19 09:00 08/16/19 09:01 Ecotrin PO 81 mg DAILY RADHA Administration Enoxaparin Sodium 40 mg 08/16/19 09:00 08/16/19 09:01 Lovenox SUBQ 40 mg DAILY RADHA Administration Cefepime HCl 2 gm/ Sodium 100 mls @ 200 mls/hr 08/15/19 09:00 08/16/19 10:01 Chloride IV Infused BID RADHA Infusion Vancomycin HCl 1 gm/ Sodium 250 mls @ 167 mls/hr 08/15/19 22:00 08/16/19 17:13 Chloride IV 167 mls/hr Q18H RADHA Administration Sodium Chloride 1,000 mls @ 150 mls/hr 08/15/19 08:00 08/16/19 17:25 Normal Saline 0.9% IV 0 mls/hr .Q6H40M RADHA Infusion Levothyroxine Sodium 112 mcg 08/16/19 07:00 08/16/19 06:46 Synthroid PO 112 mcg QDAC RADHA Administration Levothyroxine Sodium 25 mcg 08/16/19 07:00 08/16/19 06:45 Synthroid PO 25 mcg QDAC RADHA Administration Multivitamins 1 tab 08/15/19 08:00 08/16/19 07:51 Theragran PO 1 tab DAILYWM RADHA Administration Sodium Chloride 10 ml 08/15/19 09:00 08/16/19 17:13 Normal Saline Flush 0.9% IVP Not Given 0100,0900,1700 RADHA Thiamine HCl 100 mg 08/15/19 09:00 08/16/19 09:01 Vitamin B-1 PO 100 mg DAILY RADHA Administration Impression/Plan - Problem List Problem List: My impression is that he sustained a felon or thumb pad infection to his right hand, improved with incision over the thumb pad. He still has some swelling and sensitivity to pressure as residual of that in my opinion. The radiographic changes are more consistent with osteoarthritis of the distal interphalangeal joint than osteomyelitis. There are no physical signs of osteomyelitis on exam in the area of radiographic abnormality such as a skin sinus. Once his medical problems are stabilized, I would discharge him on Augmentin or Keflex for a week and have him be rechecked in the orthopedic clinic in [place]. Discussed this with the hospitalist as well and we both are in agreement.His C-reactive protein also was checked and not significantly elevated. Blood cultures have been negative. His diabetes is under good control and he is compliant with his diabetes. However, he denies alcohol use but did have positive blood alcohol.
[2019-08-16] MEDS ORDERED: CALCIUM CARBONATE CHEW 500 MG TABLET PO PRN (20:24)
[2019-08-17] MEDS: SODIUM CHLORIDE FLUSH 0.9% 10 ML SYRINGE IVP SCH ×2 (03:21→09:03)
[2019-08-17] MEDS: SODIUM CHLORIDE 0.9% 1,000 ML IV SCH (05:35)
[2019-08-17 05:48] LABS: BASOPHILS # (AUTO) 0.1 10^3/uL (0.0-0.1); EOSINOPHILS # (AUTO) 0.4 10^3/uL (0.0-0.7); EOSINOPHILS % (AUTO) 5.3 %; HGB - HEMOGLOBIN 11.5 g/dL (14.0-18.0); LYMPHOCYTES # (AUTO) 1.5 10^3/uL (1.5-3.5); MEAN CORPUSCULAR VOLUME 94.5 fL (80.0-94.0); MEAN PLATELET VOLUME 8.1 fL (7.4-11.4); MONOCYTES # (AUTO) 0.7 10^3/uL (0.0-1.0); MONOCYTES % (AUTO) 10.3 %; NEUTROPHILS # (AUTO) 4.4 10^3/uL (1.5-6.6); PLT - PLATELET COUNT 351 10^3/uL (130-450); RED BLOOD COUNT 3.48 10^6/uL (4.70-6.10)
[2019-08-17 06:04] LABS: ALBUMIN 3.6 g/dL (3.2-5.5); ALBUMIN/GLOBULIN RATIO 1.4 (1.0-2.2); BILIRUBIN,TOTAL 0.7 mg/dL (0.2-1.0); CALCIUM 8.5 mg/dL (8.5-10.3); CREATININE 1.2 mg/dL (0.6-1.2); PHOSPHORUS 2.9 mg/dL (2.5-4.6); TOTAL PROTEIN 6.1 g/dL (6.7-8.2)
[2019-08-17] MEDS: LEVOTHYROXINE 25 MCG TABLET PO SCH (06:54)
[2019-08-17] MEDS: LEVOTHYROXINE 112 MCG TABLET PO SCH (06:55)
[2019-08-17] MEDS ORDERED: LEVOTHYROXINE 25 MCG TABLET PO ONE (08:00)
[2019-08-17] MEDS: MULTIVITAMIN TABLET PO SCH (08:13)
[2019-08-17] MEDS: ASPIRIN EC 81 MG TABLET PO SCH (08:13)
[2019-08-17 08:30] VITALS: BP 136/65
[2019-08-17] MEDS ORDERED: lisinopriL 5 MG TABLET PO SCH (09:00)
[2019-08-17] MEDS: CEFEPIME 2 GM in SODIUM CHLORIDE 0.9% MINIBAG 100 ML IV SCH (09:02)
[2019-08-17] MEDS: THIAMINE 100 MG TABLET PO SCH (09:02)
[2019-08-17] MEDS: ENOXAPARIN 40 MG/0.4 ML SYRINGE SUBQ SCH (09:04)
[2019-08-17 09:44] LABS: VANCOMYCIN,TROUGH 7.8 ug/mL (10.0-20.0)
[2019-08-17] MEDS: VANCOMYCIN INJ 1 GM in SODIUM CHLORIDE 0.9% 250 ML IV SCH (10:24)
--- NOTE | 2019-08-17 10:42 | Discharge Plan ---
Discharge Plan Problem Reviewed?: Yes Disposition: Home, Self Care Condition: Good Prescriptions: oxyCODONE [Roxicodone] 5 mg PO Q6HR PRN #8 tablet PRN Reason: Pain 5 to 7 Amox/Clav 875/125 [Augmentin] 1 each PO Q12H 7 Days #14 tablet Diet: Regular Activity Restrictions: Activity as Tolerated Shower Restrictions: No Driving Restrictions: No Instruction Topics: Hypoglycemia Health Concerns: You were seen in the hospital because there was concern that you had an infection in your thumb which may have gone to the bone. You were treated with IV antibiotics and the bone surgeon saw you who felt that he likely did not have an infection of the bone and the x-ray findings were likely just due to arthritis. It was felt that he did have an infection of your finger but this can just be treated with antibiotics. Please take the Augmentin twice daily for 1 week. Please follow-up with the orthopedic surgeon next week. While you are also hospitalized, you were found to have elevated muscle enzymes likely from the fall you had a couple of weeks ago. You were treated with IV fluids and your numbers have improved. Please continue to stay hydrated at home and drink plenty of fluids. You were also found to have low blood sugars during this hospitalization. The visual educator saw you during this hospitalization and gave you some recommendations. Please follow these and it is recommended you follow-up with them on an outpatient basis. This can be ordered by your primary care provider. We also checked your thyroid during this hospitalization and your TSH was elevated at nearly 50. This is likely because you had stopped your medication for a month and had only recently resumed it. Please continue your home dose of levothyroxine and follow-up with your primary care provider to have labs rechecked in 4 to 6 weeks. Plan of Treatment: Please take the Augmentin twice daily for 1 week. Your prescribed oxycodone 5 mg every 6 hours as needed for pain. You were provided with 8 tablets. Please follow-up with the orthopedic clinic next week. Please call [phone] to schedule an appointment. Please continue to check your blood sugars frequently. If you develop low blood glucose, please immediately drink some juice and eat some crackers to help bring up your blood sugars. Please follow-up with your cocoa roaster. Please also ask your primary care provider to refer you to the visual educator. Please continue to take your prior Synthroid dose. You will need repeat labs in 4 to 6 weeks to make sure your thyroid numbers are improving. Assessment: Patient expressed understanding of the treatment plan. Additional Instructions or Follow Up instructions: Please follow-up with orthopedics next week as mentioned above. Is also recommended he follow-up with your primary care provider within 1 week. Please asked to be referred to the visual educator. Please also continue to follow- up with your cocoa roaster. No Smoking: If you smoke, Please STOP! Call for help. Follow-up with: Severiano Madera MD [Primary Care Provider] -
--- NOTE | 2019-08-17 10:51 | DISCHARGE SUMMARY ---
"Discharge Summary Admit Date: 08/15/19 Discharge Date: 08/17/19 Discharging Provider: Erick Kang Primary Care Provider: Severiano Madera Code Status: Attempt Resuscitation Condition at Discharge: Good Discharge Disposition: 01 Home, Self Care - DIAGNOSES Admission Diagnoses: Acute osteomyelitis of phalanx of digit of hand Acute kidney injury Hypoglycemia Hyponatremia Abnormal LFTs Insulin-dependent diabetes mellitus Hypothyroidism Discharge Diagnoses with Status of Each Condition: Felon of the right thumb - improving. Hypoglycemia due to insulin - resolved. Rhabdomyolysis - improving. Acute kidney injury - resolved. Hyponatremia -improved. Hypothyroidism - stable. Abormal LFTs - improved. Type 1 diabetes mellitus - stable. - HPI History of Present Illness: This is a 64-year-old male with a past medical history significant for type 1 diabetes, hypothyroidism, neuropathy who presents today complaining of worsening right thumb pain. He was seen in the emergency department on August 06 for similar symptoms. At that time he was diagnosed with a felon of the right thumb and underwent I&D in the emergency department and started on Bactrim. He told the emergency department that he did not fill the prescription until August 10 and has been taking the antibiotic 3 times a day as he continued to have swelling. He presents today due to worsening sharp pain that radiates to his wrist. He states his right thumb remains quite swollen. He does not report any worsening erythema. He denies any fevers, chills, nausea, vomiting at home. Denies any chest pain or dyspnea. He does report muscle cramping and pain over the past few weeks. He states he has been trying to stay hydrated at home. He reports no prior history of ulcers or infection. He reports his blood glucose have been well controlled at home with very few high readings. He says he does have 1-2 occasional hypoglycemic episodes which resolves with a snack. He states he is symptomatic at this times but he has learned to manage his blood glucose. He follows with an branch office manager at [facility]. In the emergency department here, he is found to have a sodium of 123, creatinine of 1.6, blood glucose of 57. His AST and ALT were elevated 148 and 86. Imaging of the right thumb revealed erosive changes concerning for possible osteomyelitis. He did not have a white count or fever. Given these findings, medicine was consulted for admission. I did discuss goals of care and he would like to be a full code. - CONSULTS | PROCEDURES Consultations: Orthopedics Procedures: X-ray of the right hand showed no fracture dislocations. Normal mineralization. Deformity of remote, suboptimally healed fifth metacarpal fracture with residual angulation. There are scattered periarticular lucencies, particularly of the third PIP joint, first MCP and first IP joints. Distal aspect of the first phalanx tuft, there is cortical irregularity and loss. No soft tissue gas or foreign bodies. Cortical irregularity and cortical loss of the first phalanx tuft suspicious for osteomyelitis. No soft tissue gas. - HOSPITAL COURSE Hospital Course: Admitted to the floor for suspected osteomyelitis of the right thumb as well as acute kidney injury and hyponatremia. He did have abnormal LFTs on admission an d so CKs were checked given he was complaining of muscular pain. They are found to be elevated over 3500 and he was diagnosed with rhabdomyolysis. He was treated with IV fluids and his sodium improved as well as his renal function. Sodium was 132 on discharge. His CKs also decreased to nearly 800 prior to discharge. He was encouraged to drink IV fluids on discharge. He was also started on vancomycin and cefepime IV initially for suspected osteomyelitis. Orthopedics was consulted and it was felt that an MRI would not be of benefit as it was felt the patient did not have osteomyelitis. Was felt that the x-ray findings are likely degenerative joint disease with subchondral cyst and sclerosis with osteophyte. The patient's ESR within normal limits and his CRP was only mildly elevated. He remained afebrile during his hospitalization with no leukocytosis. His blood cultures were also negative. The pain in his right thumb improved during his hospitalization. He was discharged on Augmentin to complete 1 week of therapy as recommended by orthopedics and he will follow-up with them in 1 week. He was provided 8 tablets of oxycodone 5 mg for pain. He was also hypoglycemic on admission and his initial A1c was found to be 10.5%. This seemed odd as his blood sugars were reportedly controlled at home and prior readings were around 7%. His blood glucose readings were downloaded from his insulin pump and he had multiple episodes of hypoglycemia at home. A repeat A1c was checked which showed it was actually 7.5%. The biochemistry technician was consulted and spoke with the patient regarding recommendations for the use of his insulin. The patient will follow up with him on an outpatient basis but will need a referral from his primary care provider. He was also encouraged to follow-up with his branch office manager in [facility]. He had no episodes of hypoglycemia during the last 24 hours of hospitalization. He has been a diabetic for many years and he tells me he knows how to manage his diabetes. He does report hypoglycemic episodes but he is not concerned as he is only mildly symptomatic and he just drinks some juice with improvement in his symptoms. He will make an appointment with the biochemistry technician and will follow up with his branch office manager. TSH was also found to be elevated at 47. The patient informed us that he had been off of his Synthroid for nearly a month and had just resumed it again about 1 week ago. He was encouraged to continue his current home dose of Synthroid and to follow-up with his primary care provider for repeat labs in 4 to 6 weeks as he may need an increase in his Synthroid dose. - ALLERGIES Allergies/Adverse Reactions: Allergies Allergy/AdvReac Type Severity Reaction Status Date / Time No Known Drug Allergies Allergy Verified 08/07/19 09:47 - MEDICATIONS Home Medications: Ambulatory Orders Medication Instructions Recorded Confirmed Aspirin [Adult Low Dose Aspirin EC] 81 mg PO DAILY 07/03/15 08/15/19 Insulin Aspart [Novolog] 15 - 30 unit SUBQ .CONTINUOUS 08/15/19 08/15/19 Levothyroxine Sodium [Synthroid] 137 mcg PO QDAC 08/15/19 08/15/19 lisinopriL [Zestril] 5 mg PO DAILY 08/15/19 08/15/19 Amox/Clav 875/125 [Augmentin] 1 each PO Q12H 7 Days #14 tablet 08/17/19 oxyCODONE [Roxicodone] 5 mg PO Q6HR PRN #8 tablet 08/17/19 - PHYSICAL EXAM AT DISCHARGE General Appearance: positive: No acute distress, Alert Eyes Bilateral: positive: Normal inspection ENT: positive: ENT inspection nml Neck: positive: Nml inspection Respiratory: positive: No respiratory distress. negative: Wheezes, Rales, Rhonchi Cardiovascular: positive: Regular rate & rhythm, No murmur. negative: Tachycardia, Bradycardia Abdomen: positive: Non-tender, No distention. negative: Tenderness, Guarding, Rebound Skin: positive: No rash, Warm, Dry Extremities: positive: Full ROM, No pedal edema, Other (His right thumb is edematous with pain on palpation of the distal aspect of the thumb. There is an incision site present that is clean and dry without any erythema.) Neurologic/Psychiatric: positive: Oriented x3, Motor nml. negative: Disoriented to person, Disoriented to place, Disoriented to time - LABS Result Diagrams: 08/17/19 05:30 08/17/19 05:30 - DIAGNOSTIC IMAGING Diagnostic Imaging Results: Final report reviewed - FOLLOW UP Follow Up: He was asked to follow-up with his primary care provider within 1 week. He was asked to follow-up with orthopedics next week and was provided with a number to contact the clinic. He was also asked to follow-up with the biochemistry technician and his branch office manager - TIME SPENT Time Spent in Discharge (Minutes): 35"
[2019-08-17] MEDS ORDERED: VANCOMYCIN INJ 1 GM, VANCOMYCIN INJ 250 MG in SODIUM CHLORIDE 0.9% 250 ML IV SCH (20:00)
[2019-08-18] MEDS ORDERED: LEVOTHYROXINE 112 MCG TABLET PO SCH (07:00)
[2019-08-18] MEDS ORDERED: LEVOTHYROXINE 25 MCG TABLET PO SCH (07:00)
== END 2019-08-17 13:30 | disposition home or self-care (01) | DRG 603 ==
LOC: ED 03:44 → MS2 05:43
PROVIDERS: ADMIT Internal Medicine; ATTEND Internal Medicine
DX: E11.69 Type 2 diabetes mellitus with other specified complication (principal); L03.011 Cellulitis of right finger; M86.9 Osteomyelitis, unspecified; M62.82 Rhabdomyolysis; N17.9 Acute kidney failure, unspecified; E11.649 Type 2 diabetes mellitus with hypoglycemia without coma; Z79.4 Long term (current) use of insulin; E87.1 Hypo-osmolality and hyponatremia; E11.42 Type 2 diabetes mellitus with diabetic polyneuropathy; E10.649 Type 1 diabetes mellitus with hypoglycemia without coma; E10.42 Type 1 diabetes mellitus with diabetic polyneuropathy; Z96.41 Presence of insulin pump (external) (internal); T38.1X6A Underdosing of thyroid hormones and substitutes, initial encounter; Z91.128 Patient's intentional underdosing of medication regimen for other reason; R74.0 Nonspecific elevation of levels of transaminase and lactic acid dehydrogenase [LDH]; M19.041 Primary osteoarthritis, right hand; M20.091 Other deformity of right finger(s); Z91.81 History of falling; Z79.82 Long term (current) use of aspirin; Z79.899 Other long term (current) drug therapy; E03.9 Hypothyroidism, unspecified; E86.1 Hypovolemia; F17.200 Nicotine dependence, unspecified, uncomplicated; E86.0 Dehydration; F17.210 Nicotine dependence, cigarettes, uncomplicated
CPT/HCPCS: 36415; 71045; 73130; 80048; 80053; 80202; 81003; 82550; 83036; 83605; 83690; 83735; 84100; 84295; 84443; 84484; 85025; 85610; 85651; 85730; 86140; 87040; 93005; 96365; 96375; 99285; A9270; J1650; J3370; J3490; 80306; 80320; 81001; 87086

== ENCOUNTER 2020-03-11 09:25 | Emergency (ER) | payer MEDICARE, OTHER ==
[2020-03-11 09:36] VITALS: BP 154/77
--- NOTE | 2020-03-11 09:59 | ED Physician Documentation ---
History of Present Illness - Stated complaint Stated Complaint: DIABETIC - Chief complaint Chief Complaint: General - History obtained from History obtained from: Patient - Additonal information Additional information: Patient comes emergency department chief complaint of needing insulin refill for his pump. Patient states he has 1 more days worth and then he will be out. He sees Dr. Cantrell of endocrinology, who normally refills his insulin, but states he could not get a hold of their office yesterday. Patient is very concerned and states that the only reason he is here. He states he is otherwise feeling fine and has no complaints. Review of Systems Ten Systems: 10 systems reviewed and negative Constitutional: reports: Reviewed and negative Eyes: reports: Reviewed and negative Ears: reports: Reviewed and negative Nose: reports: Reviewed and negative Throat: reports: Reviewed and negative Cardiac: reports: Reviewed and negative Respiratory: reports: Reviewed and negative GI: reports: Reviewed and negative : reports: Reviewed and negative Skin: reports: Reviewed and negative Musculoskeletal: reports: Reviewed and negative Neurologic: reports: Reviewed and negative Psychiatric: reports: Reviewed and negative Endocrine: reports: Reviewed and negative Immunocompromised: reports: Reviewed and negative PD PAST MEDICAL HISTORY - Past Medical History Past Medical History: Yes Cardiovascular: High cholesterol Respiratory: Pneumonia, Other Neuro: Peripheral neuropathy Endocrine/Autoimmune: Type 1 diabetes, HyPOthyroidism GI: GERD : None HEENT: None Psych: Depression, Anxiety Musculoskeletal: None Derm: None - Past Surgical History Past Surgical History: Yes General: Colonoscopy - Present Medications Home Medications: Ambulatory Orders Medication Instructions Recorded Confirmed Aspirin [Adult Low Dose Aspirin EC] 81 mg PO DAILY 07/03/15 03/11/20 Insulin Aspart [Novolog] 15 - 30 unit SUBQ .CONTINUOUS 08/15/19 03/11/20 Levothyroxine Sodium [Synthroid] 137 mcg PO QDAC 08/15/19 03/11/20 lisinopriL [Zestril] 5 mg PO DAILY 08/15/19 03/11/20 oxyCODONE [Roxicodone] 5 mg PO Q6HR PRN #8 tablet 08/17/19 03/11/20 - Allergies Allergies/Adverse Reactions: Allergies Allergy/AdvReac Type Severity Reaction Status Date / Time No Known Drug Allergies Allergy Verified 03/11/20 09:30 - Social History Does the pt smoke?: Yes Smoking Status: Current every day smoker Does the pt drink ETOH?: No Does the pt have substance abuse?: Yes Substance Use and Type: Marijuana - Immunizations Immunizations are current?: Yes - POLST Patient has POLST: No POLST Status: Full Code PD ED PE NORMAL - Vitals Vital signs reviewed: Yes - General General: Alert and oriented X 3, No acute distress - HEENT HEENT: PERRL - Neck Neck: Supple, no meningeal sign - Cardiac Cardiac: RRR, No murmur - Respiratory Respiratory: No respiratory distress, Clear bilaterally - Abdomen Abdomen: Soft, Non tender, Non distended - Derm Derm: Normal color, Warm and dry, No rash - Extremities Extremities: No deformity - Neuro Neuro: Alert and oriented X 3 - Psych Psych: Normal mood, Normal affect Results - Vitals Vitals: Oxygen O2 Source Room air - Labs Labs: Laboratory Tests 03/11/20 10:11 POC Whole Bld Glucose 125 H PD MEDICAL DECISION MAKING - ED course Complexity details: d/w patient ED course: We did call the [facility], and they stated that they actually had refills for the patient's pump insulin that has been called in by Dr. Narayan already, and that they were ready to cotton picker the patient would come over. This information was relayed to the patient. No further interventions or treatments were indicated in the emergency department, and the patient was stable for discharge home. Departure - Departure Disposition: 01 Home, Self Care Clinical Impression: Type 1 diabetes mellitus on insulin therapy Condition: Stable Comments: Your case has been discussed with Keysha at the [facility], and she says that they have your insulin ready to be picked up, per Dr. Narayan's order. Please go straight there from here and pick it up. Discharge Date/Time: 03/11/20 10:25
== END 2020-03-11 10:25 | disposition home or self-care (01) ==
LOC: ED 09:25
DX: E10.9 Type 1 diabetes mellitus without complications (principal); Z79.4 Long term (current) use of insulin; Z76.0 Encounter for issue of repeat prescription; F17.200 Nicotine dependence, unspecified, uncomplicated
CPT/HCPCS: 99281

== ENCOUNTER 2020-08-30 04:56 | Emergency (ER) | payer MEDICARE, OTHER ==
--- NOTE | 2020-08-30 05:09 | ED Physician Documentation ---
PD HPI HEENT - Stated complaint Stated Complaint: MOUTH PX - Chief complaint Chief Complaint: Heent - History obtained from History obtained from: Patient - History of Present Illness Timing - onset: How many days ago (2) Timing - duration: Days (2) Timing - details: Gradual onset, Still present Location: Tooth (left lower molar has decay for long time but hurting and swelling for 2 days now.) Associated symptoms: Facial swelling. No: Fever, Congestion, Swollen nodes Similar symptoms before: Diagnosis (prior dental infections) Review of Systems Constitutional: denies: Fever, Chills Throat: denies: Sore throat PD PAST MEDICAL HISTORY - Past Medical History Cardiovascular: High cholesterol Respiratory: Pneumonia, Other Neuro: Peripheral neuropathy Endocrine/Autoimmune: Type 1 diabetes, HyPOthyroidism GI: GERD : None HEENT: None Psych: Depression, Anxiety Musculoskeletal: None Derm: None - Past Surgical History Past Surgical History: Yes General: Colonoscopy - Present Medications Home Medications: Ambulatory Orders Medication Instructions Recorded Confirmed Aspirin [Adult Low Dose Aspirin EC] 81 mg PO DAILY 07/03/15 03/11/20 Insulin Aspart [Novolog] 15 - 30 unit SUBQ .CONTINUOUS 08/15/19 03/11/20 Levothyroxine Sodium [Synthroid] 137 mcg PO QDAC 08/15/19 03/11/20 lisinopriL [Zestril] 5 mg PO DAILY 08/15/19 03/11/20 oxyCODONE [Roxicodone] 5 mg PO Q6HR PRN #8 tablet 08/17/19 03/11/20 Chlorhexidine Gluconate [Peridex] 15 ml MM TID #118 ml 08/30/20 Clindamycin [Cleocin] 300 mg PO TID 7 Days #20 cap 08/30/20 Oxycodone HCl/Acetaminophen 1 each PO Q6H PRN #8 tablet 08/30/20 [Percocet 5-325 mg Tablet] - Allergies Allergies/Adverse Reactions: Allergies Allergy/AdvReac Type Severity Reaction Status Date / Time No Known Drug Allergies Allergy Verified 08/30/20 05:07 - Social History Does the pt smoke?: Yes Smoking Status: Current every day smoker Does the pt drink ETOH?: No Does the pt have substance abuse?: Yes - Immunizations Immunizations are current?: Yes - POLST Patient has POLST: No POLST Status: Full Code PD ED PE NORMAL - Vitals Vital signs reviewed: Yes - General General: Alert and oriented X 3, No acute distress, Well developed/nourished - HEENT HEENT: No: Dentition benign (multiple decays. Left lower molar with swelling and tenderness without fluctuance of gum. ) - Neck Neck: Supple, no meningeal sign, No adenopathy, Other (no submandibular fullness. ) - Cardiac Cardiac: RRR, No murmur - Respiratory Respiratory: Clear bilaterally - Derm Derm: Normal color, Warm and dry, No rash - Neuro Neuro: Alert and oriented X 3, No motor deficit, Normal speech Results - Vitals Vitals: Oxygen O2 Source Room air Departure - Departure Disposition: Home, Self Care Clinical Impression: Dental infection Condition: Stable Record reviewed to determine appropriate education?: Yes Follow-Up: Severiano Madera MD [Primary Care Provider] - Prescriptions: Clindamycin [Cleocin] 300 mg PO TID 7 Days #20 cap Oxycodone HCl/Acetaminophen [Percocet 5-325 mg Tablet] 1 each PO Q6H PRN #8 tablet PRN Reason: pain Chlorhexidine Gluconate [Peridex] 15 ml MM TID #118 ml Comments: Hydrated. Continue usual medicines. Use clindamycin 3 times a day for a week for the infection. Also Hibiclens oral antiseptic once or twice daily swish and spit out to cleanse the gum area as well. Anti-inflammatory such as naproxen or ibuprofen twice daily for the next several days to a week. Add Tylenol or oxycodone as needed for worse pain. I would anticipate not needing the stronger pain medicine beyond a couple of days. Follow-up with dentist for more definitive care. Recheck if not improving well over the next few days. My narcotic instructions I am prescribing a short course of narcotic pain medication for you. These are potentially dangerous and addictive medications that should be used carefully. These medications may constipate you. Take an ufrt-icw-[id number] stool softener such as docusate twice daily with plenty of water while taking these medications. If you go 24 hours without a bowel movement, take [id number] MiraLAX, per package instructions. Do not drink or drive while taking these medications. If you received narcotic or sedating medications while in the emergency department do not drive for 24 hours. Store this medication in a safe, secure place and out of reach of children. It is a violation of federal law to give or sell this medication to another pe rson or to use in a manner other than prescribed. The ED will not refill narcotic prescriptions, including prescriptions lost or stolen. You can dispose of unwanted medications at the [facility]'s office or at several pharmacies such as [facility]. Discharge Date/Time: 08/30/20 05:46
[2020-08-30] MEDS ORDERED: oxyCODONE/ACET 5/325 Prepack 4 PO STA (05:21)
[2020-08-30] MEDS ORDERED: NAPROXEN 250 MG TABLET PO STA (05:21)
[2020-08-30] MEDS ORDERED: CLINDAMYCIN 150 MG CAPSULE PO STA (05:21)
[2020-08-30 05:46] VITALS: BP 131/76
== END 2020-08-30 05:46 | disposition home or self-care (01) ==
LOC: ED 04:56
DX: K04.7 Periapical abscess without sinus (principal); F17.200 Nicotine dependence, unspecified, uncomplicated
CPT/HCPCS: 99283; A9270

== ENCOUNTER 2021-09-16 09:42 | Emergency (ER) | payer MEDICARE, OTHER ==
[2021-09-16 10:04] VITALS: BP 158/76
--- NOTE | 2021-09-16 10:44 | ED Physician Documentation ---
History of Present Illness - Stated complaint Stated Complaint: REMOVE STICHES - Chief complaint Chief Complaint: Ext Problem - History obtained from History obtained from: Patient - History of Present Illness Timing: How many weeks ago - Additonal information Additional information: 66-year-old male presents for removal of sutures. Patient had benign tumors r emoved from his right elbow and right pinky finger 10 days ago. He states that he was upset with his treatment at his doctor's office and left before sutures were removed. He states that he is healing well, but it is time for his sutures to be removed. Denies complaints Review of Systems Ten Systems: 10 systems reviewed and negative Constitutional: denies: Fever, Chills Cardiac: denies: Chest pain / pressure, Palpitations Respiratory: denies: Dyspnea, Cough, Wheezing Skin: reports: Laceration (s) (healed) PD PAST MEDICAL HISTORY - Past Medical History Cardiovascular: High cholesterol Respiratory: Pneumonia, Other Neuro: Peripheral neuropathy Endocrine/Autoimmune: Type 1 diabetes, HyPOthyroidism GI: GERD : None HEENT: None Psych: Depression, Anxiety Musculoskeletal: None Derm: None - Past Surgical History Past Surgical History: Yes General: Colonoscopy - Present Medications Home Medications: Ambulatory Orders Medication Instructions Recorded Confirmed Aspirin [Adult Low Dose Aspirin EC] 81 mg PO DAILY 07/03/15 03/11/20 Insulin Aspart [Novolog] 15 - 30 unit SUBQ .CONTINUOUS 08/15/19 03/11/20 Levothyroxine Sodium [Synthroid] 137 mcg PO QDAC 08/15/19 03/11/20 lisinopriL [Zestril] 5 mg PO DAILY 08/15/19 03/11/20 oxyCODONE [Roxicodone] 5 mg PO Q6HR PRN #8 tablet 08/17/19 03/11/20 Chlorhexidine Gluconate [Peridex] 15 ml MM TID #118 ml 08/30/20 Clindamycin [Cleocin] 300 mg PO TID 7 Days #20 cap 08/30/20 Oxycodone HCl/Acetaminophen 1 each PO Q6H PRN #8 tablet 08/30/20 [Percocet 5-325 mg Tablet] - Allergies Allergies/Adverse Reactions: Allergies Allergy/AdvReac Type Severity Reaction Status Date / Time No Known Drug Allergies Allergy Verified 09/16/21 10:05 - Social History Does the pt smoke?: Yes Smoking Status: Current every day smoker Does the pt drink ETOH?: No Does the pt have substance abuse?: Yes - Immunizations Immunizations are current?: Yes - POLST Patient has POLST: No POLST Status: Full Code PD ED PE NORMAL - Vitals Vital signs reviewed: Yes - General General: Alert and oriented X 3, No acute distress, Well developed/nourished - HEENT HEENT: Atraumatic, PERRL, EOMI, Ears normal - Neck Neck: Supple, no meningeal sign, No bony TTP, No adenopathy - Cardiac Cardiac: RRR, No gallop - Respiratory Respiratory: No respiratory distress, Clear bilaterally - Abdomen Abdomen: Soft, Non tender, Non distended - Back Back: No CVA TTP, No spinal TTP - Derm Derm: Normal color, Warm and dry, No rash, Other (well healed surgical sites R elbow, L pinky finger) - Extremities Extremities: No deformity, No tenderness to palpate, Normal ROM s pain, No edema, No calf tenderness / cord - Neuro Neuro: Alert and oriented X 3, middleware consultant 2-12 intact, No motor deficit, No sensory deficit, Normal speech - Psych Psych: Normal mood, Normal affect Results - Vitals Vitals: Vital Signs - 24 hr 09/16/21 10:00 Temperature 36.1 C L Heart Rate 84 Respiratory 16 Rate Blood Pressure 158/76 H O2 Saturation 100 Oxygen O2 Source Room air Procedures - Suture/staple Removal (location) Hand Suture/staple removal: # sutures (2) Upper extremity Suture/staple removal: # sutures (3) PD MEDICAL DECISION MAKING - ED course ED course: sutures removed without issue Departure - Departure Disposition: 01 Home, Self Care Clinical Impression: Encounter for removal of sutures Instructions: ED Bandage Elastic Wrap, ED Wrap Akshat Ch Discharge Date/Time: 09/16/21 10:58
== END 2021-09-16 10:58 | disposition home or self-care (01) ==
LOC: ED 09:42
DX: Z48.02 Encounter for removal of sutures (principal); E10.9 Type 1 diabetes mellitus without complications; F17.200 Nicotine dependence, unspecified, uncomplicated
CPT/HCPCS: 99281; 99282

== ENCOUNTER 2022-01-14 10:03 | Outpatient (CLI) | payer MEDICARE, OTHER ==
[2022-01-14 12:37] LABS: ESTIMATED AVERAGE GLUCOSE 154 mg/dL (70-100)
[2022-01-14 12:52] LABS: BUN - BLOOD UREA NITROGEN 19 mg/dL (6-20); CALCIUM 9.7 mg/dL (8.5-10.3); CARBON DIOXIDE - CO2 30 mmol/L (21-32); CHLORIDE 97 mmol/L (101-111); CHOL/HDL RATIO 2.5 (<5.0); CHOLESTEROL 118 mg/dL; CREATININE 0.9 mg/dL (0.6-1.2); GFR - MDRD 84 (>89); GLUCOSE 123 mg/dL (70-100); HDL CHOLESTEROL 48 mg/dL; LDL CHOLESTEROL,CALCULATED 60 mg/dL; LDL/HDL RATIO 1.3 (<3.6); POTASSIUM 4.8 mmol/L (3.5-5.0); SODIUM 136 mmol/L (135-145); TRIGLYCERIDES 52 mg/dL; VLDL CHOLESTEROL 10 mg/dL
== END 2022-01-14 10:04 | disposition home or self-care (01) ==
LOC: LAB.N 10:03
PROVIDERS: ATTEND Nurse Practitioner
DX: E10.8 Type 1 diabetes mellitus with unspecified complications (principal); E78.5 Hyperlipidemia, unspecified; E03.9 Hypothyroidism, unspecified
CPT/HCPCS: 36415; 80048; 80061; 82043; 82570; 83036; 83721; 84443

== ENCOUNTER 2022-01-15 08:00 | Outpatient (CLI) | payer MEDICARE, OTHER ==
[2022-01-15 17:59] LABS: CREATININE,URINE 136.3 mg/dL; MICROALBUM/CREATININE RATIO,UR 2.9 ug/mg (<30.0); MICROALBUMIN,URINE 0.4 mg/dL (0-300.0)
== END 2022-01-15 23:59 | disposition home or self-care (01) ==
LOC: LAB.N 08:00
PROVIDERS: ATTEND Nurse Practitioner
DX: E10.8 Type 1 diabetes mellitus with unspecified complications (principal)
CPT/HCPCS: 81599; 82043; 82570

== ENCOUNTER 2022-01-20 15:14 | Outpatient (CLI) | payer MEDICARE, OTHER ==
--- NOTE | 2022-01-20 14:09 | XRAY Report ---
PROCEDURE: Chest 2 View X-Ray INDICATIONS: LUNG NODULE. LEFT SIDED RIB PAIN TECHNIQUE: 2 views of the chest were acquired. COMPARISON: CT abdomen pelvis 10/08/2021, chest x-ray 08/15/2019. FINDINGS: Surgical changes and devices: None. Lungs and pleura: Lateral lingular nodule is present better appreciated on prior CT exam. There is bl unting of the costophrenic angles bilaterally. There is lucency at the left costophrenic angle with w hat appears to be a pleural line without definitive lung markings identified laterally. Chronic hoff es are present within the right base including areas of calcification along portions of the lung when compared to prior exam. There is obscuration of the elevated right hemidiaphragm. Mediastinum: Mediastinal contours are normal. Heart size is normal. Bones and chest wall: No suspicious bony abnormalities. Soft tissues appear unremarkable. IMPRESSION: Pleural line without definitively identified lateral lung markings identified in the left base. While this could be artifactual given chronic changes in the left base seen on prior exam, pneumothorax ca nnot be excluded on the basis of this disc exam. CT chest is recommended for further evaluation. Bilateral effusions. The above findings were discussed with Destiny Mcdermott on 01/20/2022 at 2 p.m. Reviewed by: Aubrie Guido MD on 01/20/2022 2:07 PM PST Approved by: Aubrie Guido MD on 01/20/2022 2:07 PM PST Station ID: [id number]
== END 2022-01-20 15:15 | disposition home or self-care (01) ==
LOC: DI.S 15:14
PROVIDERS: ATTEND Nurse Practitioner
DX: R91.8 Other nonspecific abnormal finding of lung field (principal); J90 Pleural effusion, not elsewhere classified; R07.81 Pleurodynia

== ENCOUNTER 2022-02-09 08:25 | Outpatient (CLI) | payer MEDICARE, OTHER ==
[2022-02-09] MEDS ORDERED: iohexoL-300 100 ML VIAL ONE (08:33)
[2022-02-09] MEDS ORDERED: iohexoL-300 100 ML VIAL IVP ONE (12:56)
--- NOTE | 2022-02-09 18:07 | CT Report ---
PROCEDURE: CHEST W INDICATIONS: LUNG NODULE, ABN CHEST RADIOGRAPH CONTRAST:100ml Omnipaque 300 TECHNIQUE: After the administration of intravenous contrast, 1 mm axial images were acquired from the pulmonary apices through the posterior costophrenic angles. Axial 5 mm soft tissue kernel reconstructions were performed as well as 8 mm axial MIP and coronal and sagittal 5 mm reformations. For radiation dose reduction, the following was used: automated exposure control, adjustment of mA and/or kV according to patient size. COMPARISON: CT abdomen and pelvis dated 10/08/2021 CT of the abdomen and pelvis is stable in [facility]. FINDINGS: Image quality: Excellent. Lungs and pleura: A nodular density left lung base (in the lingula) seen on the previous CT is uncha nged in size and appearance. On current image 217/4 it measures approximately 2.6 x 1.3 cm. On previo us image 4/5 it measured 2.6 x 1.4 cm. The posterior lateral aspect of the is connected to an area of linear scarring. It likely represents rounded atelectasis. Patchy ill-defined densities have develop ed in the posterior lung bases bilaterally, consistent with development of patchy bilateral atelectas is. No other suspicious lesions are identified. No acute air space opacities. No pleural effusions o r pneumothorax. Central and peripheral airways are patent and normal in caliber. Mediastinum: Heart size is normal. Severe coronary artery calcifications. No pericardial effusion. No mediastinal or hilar adenopathy by size criteria. Thoracic aorta and central pulmonary arteries are normal in size. Esophagus is normal in caliber. No hiatal hernia. Bones and chest wall: No suspicious bony lesions. No vertebral body compression fractures. No axil mendoza or supraclavicular adenopathy by size criteria. The thyroid is not identified.. Abdomen: Visualized upper abdominal solid organs appear normal. Upper abdominal bowel loops are nor mal in caliber. IMPRESSION: 1. A nodular density in the left lung base is stable in size and appearance. It most likely represent s rounded atelectasis. 2. Bilateral posterior basal patchy atelectasis. 3. Severe coronary artery calcifications. Comment: Recommend follow-up CT of the chest in 6 months to document stability. CLINICAL RECOMMENDATION STATEMENTS: In patients <35 years with an ITN detected on CT, MRI, or extrathyroidal ultrasound, the Committee re commends further evaluation with dedicated thyroid ultrasound if the nodule is "e1 cm and has no susp icious imaging features, and if the patient has normal life expectancy. In patients "e35 years with an ITN detected on CT, MRI, or extrathyroidal ultrasound, the Committee r ecommends further evaluation with dedicated thyroid ultrasound if the nodule is "e1.5 cm and has no s uspicious imaging features, and if the patient has normal life expectancy. (ACR, 2014) Reviewed by: Carter Vickers MD on 02/09/2022 6:06 PM PST Approved by: Carter Vickers MD on 02/09/2022 6:06 PM PST Station ID: [id number]
== END 2022-02-09 08:26 | disposition home or self-care (01) ==
LOC: DI 08:25
PROVIDERS: ATTEND Nurse Practitioner
DX: R91.8 Other nonspecific abnormal finding of lung field (principal); J98.11 Atelectasis; I25.10 Atherosclerotic heart disease of native coronary artery without angina pectoris
CPT/HCPCS: 71260; Q9967

== ENCOUNTER 2022-06-30 12:14 | Outpatient (CLI) | payer MEDICARE, OTHER ==
[2022-06-30 12:40] LABS: CALCIUM 9.5 mg/dL (8.5-10.3); CREATININE 1.1 mg/dL (0.6-1.2)
[2022-06-30 13:35] LABS: ESTIMATED AVERAGE GLUCOSE 169 mg/dL (70-100); HEMOGLOBIN A1c% 7.5 % (4.27-6.07)
[2022-06-30 13:37] LABS: THYROID STIMULATING HORMONE 1.53 uIU/mL (0.34-5.60)
== END 2022-06-30 12:15 | disposition home or self-care (01) ==
LOC: LAB 12:14
PROVIDERS: ATTEND Internal Medicine
DX: E10.65 Type 1 diabetes mellitus with hyperglycemia (principal); E03.9 Hypothyroidism, unspecified
CPT/HCPCS: 36415; 80048; 83036; 84443

== ENCOUNTER 2022-07-16 17:27 | Emergency (ER) | payer MEDICARE, OTHER ==
[2022-07-16 17:37] VITALS: BP 144/75
--- NOTE | 2022-07-16 18:10 | ED Physician Documentation ---
PD HPI HEADACHE - Stated complaint Stated Complaint: HEADACHE - Chief complaint Chief Complaint: Neuro - History obtained from History obtained from: Patient - Additional information Additional information: 67-year-old gentleman with longstanding type 1 diabetes has had headaches frequently for the last 6 months. Prior to that was not really a headachy person. It is a bitemporal headache. He always has some pressure tension with it but the headache which is more often in the evening is not daily but it is at least weekly. It does improve with ibuprofen. He denies visual deficits or facial or skull tenderness. No weight loss. PD PAST MEDICAL HISTORY - Past Medical History Cardiovascular: High cholesterol Respiratory: Pneumonia, Other Neuro: Peripheral neuropathy Endocrine/Autoimmune: Type 1 diabetes, HyPOthyroidism GI: GERD : None HEENT: None Psych: Depression, Anxiety Musculoskeletal: None Derm: None - Past Surgical History Past Surgical History: Yes General: Colonoscopy - Present Medications Home Medications: Ambulatory Orders Medication Instructions Recorded Confirmed Aspirin [Adult Low Dose Aspirin EC] 81 mg PO DAILY 07/03/15 03/11/20 Insulin Aspart [Novolog] 15 - 30 unit SUBQ .CONTINUOUS 08/15/19 03/11/20 Levothyroxine Sodium [Synthroid] 137 mcg PO QDAC 08/15/19 03/11/20 lisinopriL [Zestril] 5 mg PO DAILY 08/15/19 03/11/20 oxyCODONE [Roxicodone] 5 mg PO Q6HR PRN #8 tablet 08/17/19 03/11/20 Chlorhexidine Gluconate [Peridex] 15 ml MM TID #118 ml 08/30/20 Clindamycin [Cleocin] 300 mg PO TID 7 Days #20 cap 08/30/20 Oxycodone HCl/Acetaminophen 1 each PO Q6H PRN #8 tablet 08/30/20 [Percocet 5-325 mg Tablet] - Allergies Allergies/Adverse Reactions: Allergies Allergy/AdvReac Type Severity Reaction Status Date / Time No Known Drug Allergies Allergy Verified 07/16/22 17:37 - Social History Does the pt smoke?: Yes Smoking Status: Current every day smoker Does the pt drink ETOH?: No Does the pt have substance abuse?: Yes - Immunizations Immunizations are current?: Yes - POLST Patient has POLST: No POLST Status: Full Code PD ED PE NORMAL - Vitals Vital signs reviewed: Yes - General General: Alert and oriented X 3, No acute distress - HEENT HEENT: PERRL, EOMI, Other (Temporal arteries are nontender) - Neck Neck: Supple, no meningeal sign, No bony TTP - Neuro Neuro: Alert and oriented X 3, veneer clipper 2-12 intact Eye Opening: Spontaneous Motor: Obeys Commands Verbal: Oriented GCS Score: 15 - Psych Psych: Normal mood Results - Vitals Vitals: Vital Signs - 24 hr 07/16/22 17:33 Temperature 36.2 C L Heart Rate 88 Respiratory 16 Rate Blood Pressure 144/75 H O2 Saturation 97 Oxygen O2 Source Room air - Labs Labs: Laboratory Tests 07/16/22 07/16/22 07/16/22 18:26 18:26 18:26 WBC 10.6 RBC 4.33 L Hgb 13.8 L Hct 40.0 L MCV 92.4 MCH 31.9 H MCHC 34.5 RDW 15.2 H Plt Count 358 MPV 8.1 Neut # (Auto) 7.2 H Lymph # (Auto) 2.1 Andrew # (Auto) 1.0 Eos # (Auto) 0.3 Baso # (Auto) 0.1 Absolute Nucleated RBC 0.00 Nucleated RBC % 0.0 ESR 1 Sodium 131 L Potassium 3.9 Chloride 95 L Carbon Dioxide 24 Anion Gap 12.0 BUN 16 Creatinine 1.0 Estimated GFR (MDRD) 74 L Glucose 168 H Calcium 9.0 C-Reactive Protein < 1.0 - Rads (name of study) CT of the head is unremarkable Relevant Findings:: Final report received, EMP independent interpretation of test PD Medical Decision Making - ED course ED course: Now subacute almost chronic headaches consistent with a tension headache, but he is worried about intracranial mass. Given his age I also considered giant cell arteritis. CT of the head was normal. Labs reviewed, basically normal CBC, BMP and normal ESR/CRP. So not consistent with GCA. Departure - Departure Disposition: 01 Home, Self Care Clinical Impression: Headache Qualifiers: Headache type: tension-type Headache chronicity pattern: acute headache Intractability: not intractable Qualified Code(s): G44.209 - Tension-type headache, unspecified, not intractable Condition: Good Record reviewed to determine appropriate education?: Yes Instructions: ED Headache Tension Comments: Your CAT scan is normal. Your labs are normal suggesting against an inflammatory etiology of your headaches. Fine to continue ibuprofen, but for some forms of headache, ibuprofen can make it worse so try to avoid it if you can using Tylenol instead. Call your doctor to arrange a follow-up appointment, make the next available appointment. In the interim, return anytime if worse or if new symptoms develop. Discharge Date/Time: 07/16/22 18:57
[2022-07-16 18:31] LABS: BASOPHILS # (AUTO) 0.1 10^3/uL (0.0-0.1); BASOPHILS % (AUTO) 0.5 %; EOSINOPHILS # (AUTO) 0.3 10^3/uL (0.0-0.7); EOSINOPHILS % (AUTO) 2.8 %; HGB - HEMOGLOBIN 13.8 g/dL (14.0-18.0); LYMPHOCYTES # (AUTO) 2.1 10^3/uL (1.5-3.5); LYMPHOCYTES % (AUTO) 19.6 %; MEAN CORPUSCULAR HEMOGLOBIN 31.9 pg (27.0-31.0); MEAN CORPUSCULAR HGB CONC 34.5 g/dL (32.0-36.0); MEAN CORPUSCULAR VOLUME 92.4 fL (80.0-94.0); MEAN PLATELET VOLUME 8.1 fL (7.4-11.4); MONOCYTES % (AUTO) 9.3 %; NEUTROPHILS # (AUTO) 7.2 10^3/uL (1.5-6.6); NEUTROPHILS % (AUTO) 67.4 %; PLT - PLATELET COUNT 358 10^3/uL (130-450); RED BLOOD COUNT 4.33 10^6/uL (4.70-6.10); RED CELL DISTRIBUTION WIDTH 15.2 % (12.0-15.0); WHITE BLOOD COUNT 10.6 x10^3/uL (4.8-10.8)
--- NOTE | 2022-07-16 18:34 | CT Report ---
PROCEDURE: HEAD WO INDICATIONS: headache TECHNIQUE: Noncontrast 4.5 mm thick angled axial sections acquired from the foramen magnum to the vertex. For r adiation dose reduction, the following was used: automated exposure control, adjustment of mA and/or kV according to patient size. COMPARISON: None. FINDINGS: Image quality: Motion artifact is noted. There is streak artifact seen through the skull base. CSF spaces: Basal cisterns are patent. No extra-axial fluid collections. Ventricles are normal in size and shape. Brain: No midline shift. No intracranial masses or hemorrhage. Ashley-white matter interface is norm al. Age-appropriate brain parenchymal volume loss and chronic small vessel ischemic change can be se en. Skull and face: Calvarium and visualized facial bones are intact, without suspicious lesions. Sinuses: Visualized sinuses and mastoids are clear. IMPRESSION: No intracranial hemorrhage is seen. No significant acute intracranial abnormality is seen. Reviewed by: Miguel Saavedra MD on 07/16/2022 5:33 PM AKDT Approved by: Miguel Saavedra MD on 07/16/2022 5:33 PM AKDT Station ID: [id number]
[2022-07-16 18:48] LABS: BUN - BLOOD UREA NITROGEN 16 mg/dL (6-20); CARBON DIOXIDE - CO2 24 mmol/L (21-32); CHLORIDE 95 mmol/L (101-111); GFR - MDRD 74 (>89); GLUCOSE 168 mg/dL (70-100); POTASSIUM 3.9 mmol/L (3.5-5.0); SODIUM 131 mmol/L (135-145)
[2022-07-16 18:50] LABS: CRP - C-REACTIVE PROTEIN < 1.0 mg/dL (0-1.0)
== END 2022-07-16 18:57 | disposition home or self-care (01) ==
LOC: ED 17:27
DX: G44.209 Tension-type headache, unspecified, not intractable (principal); F17.200 Nicotine dependence, unspecified, uncomplicated
CPT/HCPCS: 36415; 80048; 85025; 85651; 86140; 99283; 99284

== ENCOUNTER 2022-07-19 16:59 | Emergency (ER) | payer MEDICARE, OTHER ==
[2022-07-19 18:16] LABS: BASOPHILS # (AUTO) 0.1 10^3/uL (0.0-0.1); BASOPHILS % (AUTO) 0.7 %; EOSINOPHILS # (AUTO) 0.4 10^3/uL (0.0-0.7); EOSINOPHILS % (AUTO) 3.6 %; HCT - HEMATOCRIT 40.9 % (42.0-52.0); HGB - HEMOGLOBIN 14.1 g/dL (14.0-18.0); LYMPHOCYTES # (AUTO) 2.5 10^3/uL (1.5-3.5); LYMPHOCYTES % (AUTO) 23.8 %; MEAN CORPUSCULAR HEMOGLOBIN 32.3 pg (27.0-31.0); MEAN CORPUSCULAR HGB CONC 34.5 g/dL (32.0-36.0); MEAN CORPUSCULAR VOLUME 93.6 fL (80.0-94.0); MEAN PLATELET VOLUME 8.1 fL (7.4-11.4); MONOCYTES # (AUTO) 0.9 10^3/uL (0.0-1.0); MONOCYTES % (AUTO) 8.8 %; NEUTROPHILS # (AUTO) 6.7 10^3/uL (1.5-6.6); NEUTROPHILS % (AUTO) 62.7 %; PLT - PLATELET COUNT 386 10^3/uL (130-450); RED BLOOD COUNT 4.37 10^6/uL (4.70-6.10); RED CELL DISTRIBUTION WIDTH 15.3 % (12.0-15.0); WHITE BLOOD COUNT 10.6 x10^3/uL (4.8-10.8)
[2022-07-19 18:19] VITALS: BP 166/88
--- NOTE | 2022-07-19 18:24 | XRAY Report ---
PROCEDURE: Chest 1 View X-Ray INDICATIONS: Chest pain TECHNIQUE: One view of the chest was acquired. COMPARISON: Chest x-ray dated 01/20/2022 FINDINGS: Surgical changes and devices: None. Lungs and pleura: No pleural effusions or pneumothorax. Lungs are clear. Mediastinum: Mediastinal contours appear normal. Heart size is normal. Bones and chest wall: No suspicious bony lesions. Overlying soft tissues appear unremarkable. IMPRESSION: No acute process. Reviewed by: Blanca Rubio MD on 07/19/2022 5:23 PM MARILYNN Approved by: Blanca Rubio MD on 07/19/2022 5:23 PM MARILYNN Station ID: [id number]
[2022-07-19 18:31] LABS: ALBUMIN 4.1 g/dL (3.2-5.5); ALBUMIN/GLOBULIN RATIO 1.5 (1.0-2.2); BILIRUBIN,TOTAL 0.5 mg/dL (0.2-1.0); CALCIUM 9.2 mg/dL (8.5-10.3); CREATININE 0.9 mg/dL (0.6-1.2); POTASSIUM 3.9 mmol/L (3.5-5.0); TOTAL PROTEIN 6.8 g/dL (6.7-8.2)
--- NOTE | 2022-07-19 18:44 | ED Physician Documentation ---
PD HPI CHEST PAIN - Stated complaint Stated Complaint: CHEST PX - Chief complaint Chief Complaint: Cardiac - History obtained from History obtained from: Patient - History of Present Illness Pain level max: 5 Pain level now: 0 Quality: Aching, Sharp Location: Right chest Radiation: No: Jaw, Neck, Back, Abdominal, Left upper extremity, Right upper extremity Improved by: Rest Worsened by: Movement, Palpation Associated symptoms: No: Shortness of air, Diaphoresis, Nausea, Vomiting, Feeling faint / dizzy, General Weakness, Palpitations, Cough - Additional information Additional information: 67-year-old male presents to the emergency department with right-sided chest pain intermittently for the past 1.5 weeks. He states it is worse with palpation and movement. Nothing makes it better. He went to see his doctor about it today, but was referred here instead. No shortness of breath. No nausea or vomiting. No abdominal pain. Has not had similar symptoms previously. No history of cardiac disease. He states that the pain can last anywhere from 20 to 30 minutes to a few hours. He states he has been lifting more weights than usual as well. No fevers. No chills. No cough. No weakness, no diaphoresis. Review of Systems Constitutional: denies: Fever, Chills Respiratory: denies: Cough GI: denies: Vomiting, Diarrhea Skin: denies: Rash Musculoskeletal: denies: Neck pain, Back pain Neurologic: denies: Headache PD PAST MEDICAL HISTORY - Past Medical History Cardiovascular: High cholesterol Respiratory: Pneumonia, Other Neuro: Peripheral neuropathy Endocrine/Autoimmune: Type 1 diabetes, HyPOthyroidism GI: GERD : None HEENT: None Psych: Depression, Anxiety Musculoskeletal: None Derm: None - Past Surgical History Past Surgical History: Yes General: Colonoscopy - Present Medications Home Medications: Ambulatory Orders Medication Instructions Recorded Confirmed Aspirin [Adult Low Dose Aspirin EC] 81 mg PO DAILY 07/03/15 03/11/20 Insulin Aspart [Novolog] 15 - 30 unit SUBQ .CONTINUOUS 08/15/19 03/11/20 Levothyroxine Sodium [Synthroid] 137 mcg PO QDAC 08/15/19 03/11/20 lisinopriL [Zestril] 5 mg PO DAILY 08/15/19 03/11/20 oxyCODONE [Roxicodone] 5 mg PO Q6HR PRN #8 tablet 08/17/19 03/11/20 Chlorhexidine Gluconate [Peridex] 15 ml MM TID #118 ml 08/30/20 Clindamycin [Cleocin] 300 mg PO TID 7 Days #20 cap 08/30/20 Oxycodone HCl/Acetaminophen 1 each PO Q6H PRN #8 tablet 08/30/20 [Percocet 5-325 mg Tablet] - Allergies Allergies/Adverse Reactions: Allergies Allergy/AdvReac Type Severity Reaction Status Date / Time No Known Drug Allergies Allergy Verified 07/19/22 17:17 - Social History Does the pt smoke?: Yes Smoking Status: Current every day smoker Does the pt drink ETOH?: No Does the pt have substance abuse?: Yes - Immunizations Immunizations are current?: Yes - POLST Patient has POLST: No POLST Status: Full Code PD ED PE NORMAL - Vitals Vital signs reviewed: Yes - General General: Alert and oriented X 3, No acute distress, Well developed/nourished - HEENT HEENT: PERRL, Moist mucous membranes - Neck Neck: Supple, no meningeal sign - Cardiac Cardiac: RRR, Strong equal pulses - Respiratory Respiratory: No respiratory distress, Clear bilaterally - Abdomen Abdomen: Normal bowel sounds, Soft, Non tender, Non distended - Back Back: No spinal TTP - Derm Derm: Warm and dry, No rash - Extremities Extremities: No edema, No calf tenderness / cord - Neuro Neuro: Alert and oriented X 3, 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 Reproduces his pain. No crepitus. No ecchymosis. Results - Vitals Vitals: Vital Signs - 24 hr 07/19/22 07/19/22 17:13 18:17 Temperature 36.4 C L Heart Rate 81 76 Respiratory 16 14 Rate Blood Pressure 174/79 H 166/88 H O2 Saturation 99 100 Oxygen O2 Source Room air - EKG (time done) 0719 EKG releavant findings:: EKG personally interpreted by author of this note. Relevant findings are: Rate: Rate (enter#) (84) Rhythm: NSR Meridian: Normal Intervals: Normal WI, Wide QRS Ischemia: Normal ST segments, Q waves (V1-2) - Labs Labs: Laboratory Tests 07/19/22 07/19/22 07/19/22 18:10 18:10 18:10 WBC 10.6 RBC 4.37 L Hgb 14.1 Hct 40.9 L MCV 93.6 MCH 32.3 H MCHC 34.5 RDW 15.3 H Plt Count 386 MPV 8.1 Neut # (Auto) 6.7 H Lymph # (Auto) 2.5 [place] # (Auto) 0.9 Eos # (Auto) 0.4 Baso # (Auto) 0.1 Absolute Nucleated RBC 0.00 Nucleated RBC % 0.0 Sodium 133 L Potassium 3.9 Chloride 95 L Carbon Dioxide 30 Anion Gap 8.0 BUN 14 Creatinine 0.9 Estimated GFR (MDRD) 84 L Glucose 126 H Calcium 9.2 Total Bilirubin 0.5 AST 24 ALT 16 Alkaline Phosphatase 42 Troponin I High Sens 11.1 Total Protein 6.8 Albumin 4.1 Globulin 2.7 Albumin/Globulin Ratio 1.5 Lipase 35 - Rads (name of study) cxr Relevant Findings:: Final report received, See rad report PD Medical Decision Making - ED course Complexity details: reviewed results, re-evaluated patient, considered differential (No ST elevation [place], no aortic dissection, no PE, no tension pneumothorax, no aortic aneurysm), d/w patient ED course: Patient with right-sided atypical chest pain. Appears to be consistent with muscular strain. No acute findings on EKG, chest x-ray or laboratory testing. Negative high-sensitivity troponin after 1.5 weeks of symptoms. We will have him follow-up with his doctor for further care. No evidence of pulmonary embolism. No leg swelling. No calf pain or tenderness. No hypoxia. No respiratory distress. No tachycardia. Patient counseled regarding signs and symptoms for which I believe and urgent re-evaluation would be necessary. Florencia ent with good understanding of and agreement to plan and is comfortable going home at this time This document was made in part using voice recognition software. While efforts are made to proofread this document, sound alike and grammatical errors may occur. Departure - Departure Disposition: 01 Home, Self Care Clinical Impression: Chest pain Qualifiers: Chest pain type: unspecified Qualified Code(s): R07.9 - Chest pain, unspecified Condition: Good Instructions: ED Chest Pain Atypical Unkn Cause Follow-Up: Deloris Marquez MD [Primary Care Provider] - Within 1 week Comments: Your EKG, chest x-ray and laboratory testing did not show any acute abnormalities. There is no evidence of a heart attack within the last week. You should follow-up with your doctor for further care including a cardiac stress test. Your liver tests are normal as well. Please return if you worsen. Discharge Date/Time: 07/19/22 19:10
== END 2022-07-19 19:10 | disposition home or self-care (01) ==
LOC: ED 16:59
DX: R07.89 Other chest pain (principal); F17.200 Nicotine dependence, unspecified, uncomplicated
CPT/HCPCS: 36415; 80053; 83690; 84484; 85025; 93005; 99283; 99284

== ENCOUNTER 2022-08-03 07:51 | Outpatient (CLI) | payer MEDICARE, OTHER ==
--- NOTE | 2022-08-03 09:51 | CT Report ---
PROCEDURE: CHEST W INDICATIONS: PULMONARY NODULE CONTRAST: 100ml Omnipaque 350 TECHNIQUE: After the administration of intravenous contrast, 1 mm axial images were acquired from the pulmonary apices through the posterior costophrenic angles. Axial 5 mm soft tissue kernel reconstructions were performed as well as 8 mm axial MIP and coronal and sagittal 5 mm reformations. For radiation dose reduction, the following was used: automated exposure control, adjustment of mA and/or kV according to patient size. COMPARISON: CT chest 02/09/2022, CT abdomen pelvis 10/08/2021. FINDINGS: Lymph nodes: No highly suspicious lymph nodes visualized. Vasculature: Aorta and main pulmonary artery diameters are within normal range. Heart: No pericardial effusion. Multivessel coronary artery calcifications and/or stents. Other mediastinal structures: Small hiatal hernia. Wall thickening of the lower-mid esophagus is pres ent. Lung parenchyma and pleura: Previously demonstrated nodular opacity at the lingula measures 2.6 x 1.3 cm (4/216), unchanged. Trace left pleural effusion persists. Other linear/and bandlike opacities per sist, likely atelectasis and/or scarring. Chest wall/musculoskeletal: Multilevel degenerative change of the visualized spine. Visualized upper abdomen: Unremarkable. IMPRESSION: 1. Unchanged nodular opacity at the lingula, potential rounded atelectasis. Continued imaging follow- up could be obtained as clinically indicated, for example in 12 months or other interval at clinical discretion. 2. Small hiatal hernia with wall thickening of the mid and lower esophagus present. This is a nonspec ific finding but could be related to reflux esophagitis, other etiologies not excluded. Reviewed by: Angel Ivey MD on 08/03/2022 9:49 AM PDT Approved by: Angel Ivey MD on 08/03/2022 9:49 AM PDT Station ID: [id number]
== END 2022-08-03 07:52 | disposition home or self-care (01) ==
LOC: DI 07:51
PROVIDERS: ATTEND Internal Medicine
DX: R91.1 Solitary pulmonary nodule (principal); K44.9 Diaphragmatic hernia without obstruction or gangrene
CPT/HCPCS: 71260; Q9967

== ENCOUNTER 2022-09-04 10:59 | Outpatient (CLI) | payer MEDICARE, OTHER | END 2022-09-04 11:00 | disposition home or self-care (01) | LOC: DI 10:59 | PROVIDERS: ATTEND Internal Medicine | DX: Z53.9 Procedure and treatment not carried out, unspecified reason (principal) ==

== ENCOUNTER 2022-09-27 22:21 | Emergency (ER) | payer MEDICARE, OTHER ==
[2022-09-27 23:48] LABS: BASOPHILS # (AUTO) 0.1 10^3/uL (0.0-0.1); BASOPHILS % (AUTO) 0.5 %; EOSINOPHILS # (AUTO) 0.3 10^3/uL (0.0-0.7); EOSINOPHILS % (AUTO) 2.8 %; HCT - HEMATOCRIT 41.3 % (42.0-52.0); HGB - HEMOGLOBIN 14.1 g/dL (14.0-18.0); LYMPHOCYTES # (AUTO) 1.7 10^3/uL (1.5-3.5); LYMPHOCYTES % (AUTO) 17.7 %; MEAN CORPUSCULAR HEMOGLOBIN 32.3 pg (27.0-31.0); MEAN CORPUSCULAR HGB CONC 34.1 g/dL (32.0-36.0); MEAN CORPUSCULAR VOLUME 94.5 fL (80.0-94.0); MEAN PLATELET VOLUME 8.3 fL (7.4-11.4); MONOCYTES # (AUTO) 0.9 10^3/uL (0.0-1.0); MONOCYTES % (AUTO) 8.9 %; NEUTROPHILS # (AUTO) 6.8 10^3/uL (1.5-6.6); NEUTROPHILS % (AUTO) 69.8 %; PLT - PLATELET COUNT 390 10^3/uL (130-450); RED BLOOD COUNT 4.37 10^6/uL (4.70-6.10); RED CELL DISTRIBUTION WIDTH 13.9 % (12.0-15.0); WHITE BLOOD COUNT 9.7 x10^3/uL (4.8-10.8)
[2022-09-28] LABS: ALBUMIN/GLOBULIN RATIO 1.5 (1.0-2.2); BILIRUBIN,TOTAL 0.5 mg/dL (0.2-1.0); CALCIUM 9.2 mg/dL (8.5-10.3); CREATININE 1.1 mg/dL (0.6-1.2); POTASSIUM 3.9 mmol/L (3.5-5.0); TOTAL PROTEIN 6.7 g/dL (6.7-8.2)
--- NOTE | 2022-09-28 00:17 | ED Physician Documentation ---
History of Present Illness - Stated complaint Stated Complaint: - Chief complaint Chief Complaint: Abd Pain - History obtained from History obtained from: Patient - Additonal information Additional information: HPI from patient. Patient is vague historian, describing his symptoms and their timeframes in broad terms without clear times of onset. Patient c/o right anterolateral chest pain, left shoulder pain, generalized headache, bilateral ankle pain; symptoms have been episodic over past several months. No inciting incident nor exacerbating or ameliorating factors. Review of Systems Constitutional: reports: Reviewed and negative Eyes: reports: Reviewed and negative Cardiac: reports: Chest pain / pressure. denies: Palpitations, Pedal edema, Calf pain Respiratory: reports: Reviewed and negative GI: reports: Reviewed and negative : denies: Dysuria, Frequency Skin: reports: Reviewed and negative Musculoskeletal: denies: Extremity swelling PD PAST MEDICAL HISTORY - Past Medical History Cardiovascular: High cholesterol Respiratory: Pneumonia, Other Neuro: Peripheral neuropathy Endocrine/Autoimmune: Type 1 diabetes, HyPOthyroidism GI: GERD : None HEENT: None Psych: Depression, Anxiety Musculoskeletal: None Derm: None - Past Surgical History Past Surgical History: Yes General: Colonoscopy - Present Medications Home Medications: Ambulatory Orders Medication Instructions Recorded Confirmed Aspirin [Adult Low Dose Aspirin EC] 81 mg PO DAILY 07/03/15 03/11/20 Insulin Aspart [Novolog] 15 - 30 unit SUBQ .CONTINUOUS 08/15/19 03/11/20 Levothyroxine Sodium [Synthroid] 137 mcg PO QDAC 08/15/19 03/11/20 lisinopriL [Zestril] 5 mg PO DAILY 08/15/19 03/11/20 oxyCODONE [Roxicodone] 5 mg PO Q6HR PRN #8 tablet 08/17/19 03/11/20 Chlorhexidine Gluconate [Peridex] 15 ml MM TID #118 ml 08/30/20 Clindamycin [Cleocin] 300 mg PO TID 7 Days #20 cap 08/30/20 Oxycodone HCl/Acetaminophen 1 each PO Q6H PRN #8 tablet 08/30/20 [Percocet 5-325 mg Tablet] Oxycodone HCl/Acetaminophen 1 - 2 each PO Q6H PRN #14 tablet 09/28/22 [Percocet 5-325 mg Tablet] - Allergies Allergies/Adverse Reactions: Allergies Allergy/AdvReac Type Severity Reaction Status Date / Time No Known Drug Allergies Allergy Verified 09/27/22 22:25 - Social History Does the pt smoke?: Yes Smoking Status: Current every day smoker Does the pt drink ETOH?: No Does the pt have substance abuse?: Yes - Immunizations Immunizations are current?: Yes - POLST Patient has POLST: No POLST Status: Full Code PD ED PE NORMAL - Vitals Vital signs reviewed: Yes - General General: Alert and oriented X 3, No acute distress, Well developed/nourished - Cardiac Cardiac: RRR, No murmur, No gallop, No rub - Respiratory Respiratory: No respiratory distress, Clear bilaterally - Abdomen Abdomen: Soft, Non tender - Derm Derm: Normal color, Warm and dry - Extremities Extremities: No edema - Neuro Neuro: Alert and oriented X 3 Results - Vitals Vitals: Oxygen O2 Source Room air - Labs Labs: Laboratory Tests 09/27/22 09/27/22 09/28/22 23:41 23:41 00:25 WBC 9.7 RBC 4.37 L Hgb 14.1 Hct 41.3 L MCV 94.5 H MCH 32.3 H MCHC 34.1 RDW 13.9 Plt Count 390 MPV 8.3 Neut # (Auto) 6.8 H Lymph # (Auto) 1.7 [place] # (Auto) 0.9 Eos # (Auto) 0.3 Baso # (Auto) 0.1 Absolute Nucleated RBC 0.00 Nucleated RBC % 0.0 Sodium 131 L Potassium 3.9 Chloride 98 L Carbon Dioxide 26 Anion Gap 7.0 BUN 22 H Creatinine 1.1 Estimated GFR (MDRD) 66 L Glucose 160 H Calcium 9.2 Total Bilirubin 0.5 AST 23 ALT 20 Alkaline Phosphatase 44 Total Protein 6.7 Albumin 4.0 Globulin 2.7 Albumin/Globulin Ratio 1.5 Lipase 25 Urine Color YELLOW Urine Clarity CLEAR Urine pH 7.5 Ur Specific [place] 1.010 Urine Protein NEGATIVE Urine Glucose (UA) NEGATIVE Urine Ketones NEGATIVE Urine Occult Blood NEGATIVE Urine Nitrite NEGATIVE Urine Bilirubin NEGATIVE Urine Urobilinogen 0.2 (NORMAL) Ur Leukocyte Esterase NEGATIVE Ur Microscopic Review NOT INDICATED Urine Culture Comments NOT INDICATED - Rads (name of study) CXR Relevant Findings:: Prelim report reviewed, See rad report PD Medical Decision Making - ED course Complexity details: reviewed old records, reviewed results, re-evaluated patient, considered differential, d/w patient ED course: I am prescribing a short course of short-acting opioid pain medication for this patient. 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 I have discussed that the opioids are for short term therapy only, and will not be refilled from the ED. Departure - Departure Disposition: 01 Home, Self Care Clinical Impression: Chest pain Qualifiers: Chest pain type: other chest pain Qualified Code(s): R07.89 - Other chest pain Condition: Good Instructions: ED Chest Pain Atypical Unkn Cause Follow-Up: Deloris Marquez MD [Primary Care Provider] - Prescriptions: Oxycodone HCl/Acetaminophen [Percocet 5-325 mg Tablet] 1 - 2 each PO Q6H PRN #14 tablet PRN Reason: pain Comments: There were no concerning nor diagnostic findings on tonight's test, including the blood tests and the chest x-ray. The cause of your pain is not apparent at this time. Follow-up with your primary care provider, next available appointment, for reevaluation. I have electronically submitted a prescription for Percocet (opiate/narcotic pain medication) to the [facility] pharmacy in [place]. I am prescribing a short course of narcotic pain medication for you. These are potentially dangerous and addictive medications that should be used carefully. These medications may constipate you. Take an [id number] stool softener (docusate) twice daily with plenty of water while taking these medications. If you go 24 hours without a bowel movement, take [id number] miralax, per package instructions. Do not drink or drive while taking these medications. If you received narcotic or sedating medications while in the emergency department, do not drive for 24 hours. Store this medication in a safe, secure place and out of reach of children. It is a violation of federal law to give or sell this medication to another person or to use in a manner other than prescribed. The ED will not refill narcotic prescriptions, including prescriptions lost or stolen. To dispose of unwanted medications: 1. [facility] [address] in [place] has a medication drop box. They accept prescription medications (in pill form) Tuesday through Tuesday 9:00 a.m. to 5:00 p.m. 2. The [facility] accepts prescription medications (in pill form only) for disposal year round. Call for more information. 3. Contact the [facility] for the next [facility] sponsored prescription drug collection event. , [phone], or [phone]; Forms: PCP List Discharge Date/Time: 09/28/22 03:25
[2022-09-28 00:42] LABS: BILIRUBIN,URINE NEGATIVE (NEGATIVE); GLUCOSE, URINE (UA) NEGATIVE (NEGATIVE); KETONES,URINE (UA) NEGATIVE (NEGATIVE); LEUKOCYTE ESTERASE, URINE NEGATIVE (NEGATIVE); NITRITE,URINE NEGATIVE (NEGATIVE); OCCULT BLOOD,URINE NEGATIVE (NEGATIVE); PH,URINE 7.5 PH (5.0-7.5); PROTEIN,URINE NEGATIVE (NEGATIVE); UROBILINOGEN,URINE 0.2 (NORMAL) E.U./dL (NORMAL)
[2022-09-28] MEDS ORDERED: oxyCODONE 5 MG TABLET PO STA (00:42)
[2022-09-28 00:44] LABS: CLARITY,URINE CLEAR (CLEAR)
--- NOTE | 2022-09-28 02:06 | XRAY Report ---
PROCEDURE: Chest 2 View X-Ray INDICATIONS: right-sided chest pain TECHNIQUE: 2 views of the chest were acquired. COMPARISON: 07/19/2022, 01/20/2022, 08/15/2019. FINDINGS: Surgical changes and devices: None. Lungs and pleura: There is elevation of the right hemidiaphragm redemonstrated. There is hyperinflat ion of the lungs with flattening of the hemidiaphragms compatible with COPD. Linear scarring or atele ctasis demonstrated in the left lung base. No acute consolidation. Mediastinum: Mediastinal contours appear normal. Heart size is normal. Bones and chest wall: No suspicious bony lesions. Overlying soft tissues appear unremarkable. IMPRESSION: 1. Findings compatible with COPD. 2. No definite acute cardiopulmonary disease. Reviewed by: Amauri Hewitt MD on 09/28/2022 2:05 AM PDT Approved by: Amauri Hewitt MD on 09/28/2022 2:05 AM PDT Station ID: [id number]
[2022-09-28 03:31] VITALS: BP 130/68
== END 2022-09-28 03:25 | disposition home or self-care (01) ==
LOC: ED 22:21
DX: R07.89 Other chest pain (principal); F17.200 Nicotine dependence, unspecified, uncomplicated
CPT/HCPCS: 36415; 71046; 80053; 81003; 83690; 85025; 99283; 99284; A9270; 81001; 87086

== ENCOUNTER 2022-09-30 11:29 | Outpatient (CLI) | payer MEDICARE, OTHER ==
--- NOTE | 2022-09-30 17:52 | XRAY Report ---
PROCEDURE: Shoulder 3 View LT INDICATIONS: PAIN IN LEFT SHOULDER TECHNIQUE: 3 views of the shoulder were acquired. COMPARISON: None. FINDINGS: Bones: No fractures or dislocations. Degenerative change at the glenohumeral joint with joint space loss and small osteophyte. No suspicious bony lesions. Visualized ribs appear intact. Soft tissues: No suspicious soft tissue calcifications. IMPRESSION: Glenohumeral joint degenerative change. No acute bony abnormality. If pain persists with conservative management, consider repeat radiographs in 10-14 days or cross-sectional imaging. Reviewed by: Carter Vickers MD on 09/30/2022 5:50 PM PDT Approved by: Carter Vickers MD on 09/30/2022 5:50 PM PDT Station ID: [id number]
--- NOTE | 2022-09-30 17:53 | XRAY Report ---
PROCEDURE: Thoracic Spine 3 View INDICATIONS: SOMATIC DYSFUNCTION OF RIGHT CHEST WALL TECHNIQUE: 3 views of the thoracic spine were acquired. COMPARISON: None. FINDINGS: Bones: No fractures or dislocations. No suspicious bony lesions. 12 pairs of ribs are noted, and a ppear intact where visualized. Soft tissues: No paravertebral stripe thickening. IMPRESSION: No acute bony abnormality of the thoracic spine Reviewed by: Carter Vickers MD on 09/30/2022 5:51 PM PDT Approved by: Carter Vickers MD on 09/30/2022 5:51 PM PDT Station ID: [id number]
--- NOTE | 2022-09-30 17:54 | XRAY Report ---
PROCEDURE: Chest 2 View X-Ray INDICATIONS: ABNORMAL CHEST RADIOGRAPH TECHNIQUE: 2 views of the chest were acquired. COMPARISON: 09/28/2022. FINDINGS: Surgical changes and devices: None. Lungs and pleura: COPD again noted. No pleural effusions or pneumothorax. Lungs are clear. Mediastinum: Mediastinal contours appear normal. Heart size is normal. Bones and chest wall: No suspicious bony lesions. Overlying soft tissues appear unremarkable. IMPRESSION: No significant change. COPD. No acute pulmonary process. Reviewed by: Carter Vickers MD on 09/30/2022 5:52 PM PDT Approved by: Carter Vickers MD on 09/30/2022 5:52 PM PDT Station ID: [id number]
--- NOTE | 2022-10-01 15:23 | XRAY Report ---
PROCEDURE: Foot 3 View RT INDICATIONS: FOOT JOINT PAIN, RIGHT TECHNIQUE: 3 views of the foot were acquired. COMPARISON: None. FINDINGS: Bones: No fractures or dislocations. Mild metatarsus adductus and hallucis longus adductus. No suspi cious bony lesions. Hammertoe deformity of the second toe. Mild osteoarthritic changes. Soft tissues: No suspicious soft tissue calcifications or masses. Vascular calcifications consistent with atherosclerosis. Bunion and bunionette. IMPRESSION: 1. No acute osseous abnormality. 2. Hammertoe deformity of second toe. 3. Mild osteoarthritis. 4. Blunting and bunionette Reviewed by: Bianca Allen MD on 10/01/2022 3:22 PM PDT Approved by: Bianca Allen MD on 10/01/2022 3:22 PM PDT Station ID: [id number]
== END 2022-09-30 11:30 | disposition home or self-care (01) ==
LOC: DI 11:29
PROVIDERS: ATTEND Internal Medicine
DX: J44.9 Chronic obstructive pulmonary disease, unspecified (principal); M99.02 Segmental and somatic dysfunction of thoracic region; M19.071 Primary osteoarthritis, right ankle and foot; M20.41 Other hammer toe(s) (acquired), right foot; M21.621 Bunionette of right foot

== ENCOUNTER 2022-11-28 17:49 | Emergency (ER) | payer OTHER, MEDICARE ==
--- NOTE | 2022-11-28 18:03 | ED Physician Documentation ---
History of Present Illness - Stated complaint Stated Complaint: ETOH VS FS - Additonal information Additional information: 67-year-old male was brought to the emergency department for evaluation for fit for incarceration. The arresting officer reports that he was picked up today on a warrant for arrest. When he got to the residential he was acting up. He told them that he was a diabetic. At the residential they checked his blood glucose and found it to be in the 80s. He was given apple juice to drink and on recheck it was 164. They are requesting he be evaluated for fitness for confinement. The patient is a difficult historian. He reports he has been worked up for abdominal hernia and an elevated hemidiaphragm, as well as right foot pain. He tells me that he takes Lantus 18 units in the morning and NovoLog on a sliding scale. He takes levothyroxine and lisinopril daily. He is declining to allow blood work. He will allow a fingerstick Review of Systems Unable to obtain: Uncooperative PD PAST MEDICAL HISTORY - Past Medical History Cardiovascular: High cholesterol Respiratory: Pneumonia, Other Neuro: Peripheral neuropathy Endocrine/Autoimmune: Type 1 diabetes, HyPOthyroidism GI: GERD : None HEENT: None Psych: Depression, Anxiety Musculoskeletal: None Derm: None - Past Surgical History Past Surgical History: Yes General: Colonoscopy - Present Medications Home Medications: Ambulatory Orders Medication Instructions Recorded Confirmed Aspirin [Adult Low Dose Aspirin EC] 81 mg PO DAILY 07/03/15 03/11/20 Insulin Aspart [Novolog] 15 - 30 unit SUBQ .CONTINUOUS 08/15/19 03/11/20 Levothyroxine Sodium [Synthroid] 137 mcg PO QDAC 08/15/19 03/11/20 lisinopriL [Zestril] 5 mg PO DAILY 08/15/19 03/11/20 oxyCODONE [Roxicodone] 5 mg PO Q6HR PRN #8 tablet 08/17/19 03/11/20 Chlorhexidine Gluconate [Peridex] 15 ml MM TID #118 ml 08/30/20 Clindamycin [Cleocin] 300 mg PO TID 7 Days #20 cap 08/30/20 Oxycodone HCl/Acetaminophen 1 each PO Q6H PRN #8 tablet 08/30/20 [Percocet 5-325 mg Tablet] Oxycodone HCl/Acetaminophen 1 - 2 each PO Q6H PRN #14 tablet 09/28/22 [Percocet 5-325 mg Tablet] - Allergies Allergies/Adverse Reactions: Allergies Allergy/AdvReac Type Severity Reaction Status Date / Time No Known Drug Allergies Allergy Verified 09/27/22 22:25 - Social History Does the pt smoke?: Yes Smoking Status: Current every day smoker Does the pt drink ETOH?: No Does the pt have substance abuse?: Yes - Immunizations Immunizations are current?: Yes - POLST Patient has POLST: No POLST Status: Full Code PD ED PE NORMAL - General General: Alert and oriented X 3, No acute distress. No: Well developed/nourished (Loud and argumentative.) - Cardiac Cardiac: RRR, No murmur - Respiratory Respiratory: No respiratory distress, Clear bilaterally - Abdomen Abdomen: Normal bowel sounds, Soft. No: Non tender (Mild right-sided abdominal tenderness.) - Back Back: No CVA TTP - Derm Derm: Normal color, Warm and dry, No rash - Extremities Extremities: No deformity - Neuro Neuro: Alert and oriented X 3, element burner 2-12 intact Eye Opening: Spontaneous Motor: Obeys Commands Verbal: Oriented GCS Score: 15 Results - Vitals Vitals: Vital Signs - 24 hr 11/28/22 18:01 Temperature 36.3 C L Heart Rate 109 H Respiratory 18 Rate Blood Pressure 198/88 H O2 Saturation 97 Oxygen O2 Source Room air - Labs Labs: Laboratory Tests 11/28/22 18:00 POC Whole Bld Glucose 106 H PD Medical Decision Making - ED course Complexity details: reviewed results, d/w patient ED course: 67-year-old gentleman was brought into the emergency department for evaluation of fit for confinement. He was picked up on an arrest warrant today. Reports a history of diabetes. In the emergency department he is argumentative. He declined to allow x-ray imaging or laboratory testing other than a fingerstick glucose. At the residential he was found to have a blood glucose of 80 he was given apple juice with an appropriate rise in the blood glucose to 160. Here in the emergency department his fingerstick glucose is 106. He is alert without focal neurodeficits. He does have a modestly high blood pressure of 198/88. Denying chest pain or shortness of air. I have confirmed with the officer that the residential will have the ability to have the patient check his blood glucose overnight. As such I feel that he is medically stable for incarceration. The patient would not have presented to the emergency department today for evaluation had he not been arrested. He can continue to take his usual medications while in residential. I did recommend that the residential check his blood sugars every 4 hours overnight. If the fingerstick is less than 80 he should receive apple juice. If no appropriate rise in blood sugars then he would need to return to the emergency department. Departure - Departure Disposition: 01 Home, Self Care Clinical Impression: Encounter for medical assessment, History of diabetes mellitus Condition: Stable Comments: Ruba was seen today in the emergency department for evaluation of fit for confinement. He has a history of hypertension, hypothyroidism and diabetes. He declined to allow a blood draw today in the emergency department. His blood sugar was 106. He should be given his glucometer and had his blood glucose checked every 4 hours overnight. If his blood sugars less than 80 he should be given apple juice and have his blood sugars rechecked. If they do not rise then he should return to the ER He reports that he takes Lantus 18 units in the morning as well as NovoLog on a sliding scale. He reports that he takes lisinopril and levothyroxine daily. He can continue these medications. If he has low blood sugars, changes in mental status, he should be return to the emergency department.
[2022-11-28 18:11] VITALS: BP 198/88; O2SAT 97
== END 2022-11-28 18:58 | disposition home or self-care (01) ==
LOC: EDUNIT# → ED 17:49
DX: Z02.89 Encounter for other administrative examinations (principal); E10.9 Type 1 diabetes mellitus without complications; Z79.4 Long term (current) use of insulin; F17.200 Nicotine dependence, unspecified, uncomplicated
CPT/HCPCS: 99283

== ENCOUNTER 2022-11-29 10:25 | Outpatient (CLI) | payer MEDICARE, OTHER | END 2022-11-29 10:26 | disposition critical access hospital (66) | LOC: EMS 10:25 | DX: E11.65 Type 2 diabetes mellitus with hyperglycemia (principal); R00.0 Tachycardia, unspecified; R63.1 Polydipsia; R04.2 Hemoptysis; Z79.4 Long term (current) use of insulin | CPT/HCPCS: A0425; A0429 ==

== ENCOUNTER 2022-11-29 10:45 | Emergency (ER) | payer MEDICARE, OTHER ==
[2022-11-29 10:55] VITALS: BP 171/71; O2SAT 95
[2022-11-29] MEDS: INSULIN REGULAR HUMAN 300 UNIT/3 ML VIAL IVP STA (12:25)
--- NOTE | 2022-11-29 12:26 | ED Physician Documentation ---
History of Present Illness - Stated complaint Stated Complaint: BLOOD SUGAR ISSUE - Chief complaint Chief Complaint: General - History obtained from History obtained from: Patient - Additonal information Additional information: The patient comes to the emergency department chief complaint of "high blood sugar. He was seen here yesterday for a clearance for booking and had refused any blood work at that time. However, his fingerstick glucose was found to be in the low to mid 100s. Patient was in retirement overnight and states that he did not get to take his insulin. He also did not get to eat anything he states. He says that he is hungry and his blood sugar is running high, in the 400s. He did take his Lantus just before coming here. The patient denies any other complaints at this time. He states he otherwise feels fine. He is hoping to get something to eat before he starts walking home. PD PAST MEDICAL HISTORY - Past Medical History Cardiovascular: High cholesterol Respiratory: Pneumonia, Other Neuro: Peripheral neuropathy Endocrine/Autoimmune: Type 1 diabetes, HyPOthyroidism GI: GERD : None HEENT: None Psych: Depression, Anxiety Musculoskeletal: None Derm: None - Past Surgical History Past Surgical History: Yes General: Colonoscopy - Present Medications Home Medications: Ambulatory Orders Medication Instructions Recorded Confirmed Aspirin [Adult Low Dose Aspirin EC] 81 mg PO DAILY 07/03/15 03/11/20 Insulin Aspart [Novolog] 15 - 30 unit SUBQ .CONTINUOUS 08/15/19 03/11/20 Levothyroxine Sodium [Synthroid] 137 mcg PO QDAC 08/15/19 03/11/20 lisinopriL [Zestril] 5 mg PO DAILY 08/15/19 03/11/20 oxyCODONE [Roxicodone] 5 mg PO Q6HR PRN #8 tablet 08/17/19 03/11/20 Chlorhexidine Gluconate [Peridex] 15 ml MM TID #118 ml 08/30/20 Clindamycin [Cleocin] 300 mg PO TID 7 Days #20 cap 08/30/20 Oxycodone HCl/Acetaminophen 1 each PO Q6H PRN #8 tablet 08/30/20 [Percocet 5-325 mg Tablet] Oxycodone HCl/Acetaminophen 1 - 2 each PO Q6H PRN #14 tablet 09/28/22 [Percocet 5-325 mg Tablet] - Allergies Allergies/Adverse Reactions: Allergies Allergy/AdvReac Type Severity Reaction Status Date / Time No Known Drug Allergies Allergy Verified 09/27/22 22:25 - Social History Does the pt smoke?: Yes Smoking Status: Current every day smoker Does the pt drink ETOH?: No Does the pt have substance abuse?: Yes - Immunizations Immunizations are current?: Yes - POLST Patient has POLST: No POLST Status: Full Code PD ED PE NORMAL - Vitals Vital signs reviewed: Yes - General General: Alert and oriented X 3, No acute distress, Well developed/nourished - HEENT HEENT: Atraumatic, PERRL, EOMI, Moist mucous membranes - Neck Neck: Supple, no meningeal sign - Cardiac Cardiac: RRR, No murmur - Respiratory Respiratory: No respiratory distress, Clear bilaterally - Abdomen Abdomen: Soft, Non tender, Non distended - Derm Derm: Normal color, Warm and dry, No rash - Extremities Extremities: No deformity, No edema - Neuro Neuro: Alert and oriented X 3 - Psych Psych: Normal mood, Normal affect Results - Vitals Vitals: Oxygen O2 Source Room air PD Medical Decision Making - ED course Complexity details: reviewed results, re-evaluated patient, considered differential, d/w patient ED course: I ordered an IV and blood work for the patient but the patient refused blood work. His sugar was in the upper 400s and I did order a dose of insulin to be given IV. This was given and shortly thereafter, the patient was found to be pulling his IV out and stating that he would like to go home. The patient stated that he is not worried about his sugar being high anymore now that he was able to take his Lantus and get a dose here of regular insulin, as well. The patient has requested something to eat and we have given him a few crackers but otherwise, he states he would like to just go buy his own food and go home. He is refusing all further care and has left the emergency department without completing treatment. Departure - Departure Disposition: 01 Home, Self Care Clinical Impression: Hyperglycemia due to diabetes mellitus Condition: Stable Instructions: ED Hyperglycemia Diabetic Comments: You have opted not to have further treatment in the emergency department today. It is important that you take your insulin and that you eat normal meals. Please follow-up with your doctor as scheduled. Forms: PCP List Discharge Date/Time: 11/29/22 12:30
== END 2022-11-29 12:30 | disposition home or self-care (01) ==
LOC: EDUNIT# → ED 10:45
DX: E10.65 Type 1 diabetes mellitus with hyperglycemia (principal); E10.42 Type 1 diabetes mellitus with diabetic polyneuropathy; E03.9 Hypothyroidism, unspecified; E78.00 Pure hypercholesterolemia, unspecified; F17.200 Nicotine dependence, unspecified, uncomplicated; Z79.82 Long term (current) use of aspirin; Z79.899 Other long term (current) drug therapy
CPT/HCPCS: 80053; 83690; 85025; 99283

== ENCOUNTER 2022-12-01 18:14 | Outpatient (CLI) | payer MEDICARE, OTHER ==
--- NOTE | 2022-12-02 11:52 | Ultrasound Report ---
PROCEDURE: Abdomen Limited INDICATIONS: ELEVATED DIAPHRAGM TECHNIQUE: Real-time focused scanning was performed of the abdomen, with image documentation. COMPARISONS: None. FINDINGS: Liver: Liver is normal in size and homogeneous in echotexture. Gallbladder: Unremarkable. Biliary ducts: Intrahepatic bile ducts are non-dilated. Extrahepatic bile duct caliber measures 3 m m. Normal is 6-7 mm or less in diameter, or 10 mm or less post-cholecystectomy. Pancreas: Visualized portions of the pancreas are sonographically normal. Right kidney: Normal in size and echotexture. Right kidney measures 11.1 cm long. No hydronephrosis or nephrolithiasis. No solid masses. No complex renal cystic lesions which require follow-up. IVC: Intrahepatic inferior vena cava is patent. Miscellaneous: No free abdominal fluid. IMPRESSION: Unremarkable abdominal ultrasound. Reviewed by: Bandar Castelan on 12/02/2022 11:50 AM PDT Approved by: Bandar Castelan on 12/02/2022 11:50 AM PDT Station ID: [id number]
== END 2022-12-01 18:15 | disposition home or self-care (01) ==
LOC: DI 18:14
PROVIDERS: ATTEND Internal Medicine
DX: Q79.1 Other congenital malformations of diaphragm (principal)

== ENCOUNTER 2022-12-01 18:53 | Emergency (ER) | payer MEDICARE, OTHER ==
[2022-12-01 19:25] LABS: BILIRUBIN,URINE NEGATIVE (NEGATIVE); GLUCOSE, URINE (UA) NEGATIVE (NEGATIVE); KETONES,URINE (UA) TRACE mg/dL (NEGATIVE); LEUKOCYTE ESTERASE, URINE NEGATIVE (NEGATIVE); NITRITE,URINE NEGATIVE (NEGATIVE); OCCULT BLOOD,URINE NEGATIVE (NEGATIVE); PROTEIN,URINE NEGATIVE (NEGATIVE); UROBILINOGEN,URINE 0.2 (NORMAL) E.U./dL (NORMAL)
[2022-12-01 19:31] LABS: CLARITY,URINE CLEAR (CLEAR)
[2022-12-01 19:49] LABS: MUDS CUTOFF CONCENTRATIONS CUTOFF CONC BELOW:
[2022-12-01 19:57] LABS: VBG BASE EXCESS 1.3 mmol/L (-2 - +2); VBG HCO3 25.6 mmol/L (23-28); VBG PCO2 39.5 mmHg (41-51); VBG PH 7.429 (7.31-7.41); VBG PO2 19.9 mmHg (25-47); VBG TOTAL CO2 26.8 mmol/L (24-29)
[2022-12-01 19:59] LABS: BASOPHILS % (AUTO) 0.6 %; EOSINOPHILS % (AUTO) 0.3 %; HCT - HEMATOCRIT 37.4 % (42.0-52.0); HGB - HEMOGLOBIN 12.6 g/dL (14.0-18.0); LYMPHOCYTES # (AUTO) 0.7 10^3/uL (1.5-3.5); LYMPHOCYTES % (AUTO) 11.6 %; MEAN CORPUSCULAR HEMOGLOBIN 32.5 pg (27.0-31.0); MEAN CORPUSCULAR HGB CONC 33.7 g/dL (32.0-36.0); MEAN CORPUSCULAR VOLUME 96.4 fL (80.0-94.0); MEAN PLATELET VOLUME 8.1 fL (7.4-11.4); MONOCYTES # (AUTO) 1.2 10^3/uL (0.0-1.0); MONOCYTES % (AUTO) 18.6 %; NEUTROPHILS # (AUTO) 4.4 10^3/uL (1.5-6.6); NEUTROPHILS % (AUTO) 68.6 %; PLT - PLATELET COUNT 304 10^3/uL (130-450); RED BLOOD COUNT 3.88 10^6/uL (4.70-6.10); RED CELL DISTRIBUTION WIDTH 15.7 % (12.0-15.0); WHITE BLOOD COUNT 6.4 x10^3/uL (4.8-10.8)
[2022-12-01 20:01] LABS: COCAINE SCREEN URINE NEGATIVE (NEGATIVE); THC CANNABINOID SCREEN, URINE POSITIVE (NEGATIVE)
[2022-12-01 20:02] LABS: AMPHETAMINE SCREEN,URINE NEGATIVE (NEGATIVE); BARBITURATE SCREEN,UR NEGATIVE (NEGATIVE); BENZODIAZEPINES SCREEN, URINE NEGATIVE (NEGATIVE); METHADONE SCREEN, URINE NEGATIVE (NEGATIVE); METHAMPHETAMINES SCREEN, URINE NEGATIVE (NEGATIVE); OPIATE SCREEN, URINE NEGATIVE (NEGATIVE); OXYCODONE SCREEN, URINE NEGATIVE (NEGATIVE); PROPOXYPHENE SCREEN, URINE NEGATIVE (NEGATIVE); TRICYCLIC ANTIDEPRESSANT,URINE NEGATIVE (NEGATIVE)
[2022-12-01] MEDS ORDERED: DROPERIDOL 5 MG/2 ML VIAL IM STA (20:11)
--- NOTE | 2022-12-01 20:12 | ED Physician Documentation ---
History of Present Illness - Stated complaint Stated Complaint: DIZZINESS/HEADACHE - Chief complaint Chief Complaint: Neuro - History obtained from History obtained from: Patient - History of Present Illness Timing: Chronic Pain level max: 0 Pain level now: 0 - Additonal information Additional information: 67-year-old male with a longstanding history of diabetes presents to the emergency department stating that he has a headache. He states that the headache is chronic. Has been ongoing for several years. He does not recall if he has ever had a CT scan or not. He also states he has chronic neuropathy and has chronic pain throughout his body. No nausea or vomiting. No head injury. No fall. No fever. No chills. He states sometimes he feels off balance, but this only last for a split second at a time. The headache was gradual in onset, throbbing, aching, dull. Review of Systems Constitutional: denies: Fever, Chills Nose: denies: Rhinorrhea / runny nose, Congestion GI: denies: Nausea, Vomiting, Diarrhea Musculoskeletal: denies: Neck pain, Back pain Neurologic: reports: Headache (Holoacranial, gradual onset, dull, aching). denies: Focal weakness, Numbness, Head injury, LOC PD PAST MEDICAL HISTORY - Past Medical History Cardiovascular: High cholesterol Respiratory: Pneumonia, Other Neuro: Peripheral neuropathy Endocrine/Autoimmune: Type 1 diabetes, HyPOthyroidism GI: GERD : None HEENT: None Psych: Depression, Anxiety Musculoskeletal: None Derm: None - Past Surgical History Past Surgical History: Yes General: Colonoscopy - Present Medications Home Medications: Ambulatory Orders Medication Instructions Recorded Confirmed Aspirin [Adult Low Dose Aspirin EC] 81 mg PO DAILY 07/03/15 03/11/20 Insulin Aspart [Novolog] 15 - 30 unit SUBQ .CONTINUOUS 08/15/19 03/11/20 Levothyroxine Sodium [Synthroid] 137 mcg PO QDAC 08/15/19 03/11/20 lisinopriL [Zestril] 5 mg PO DAILY 08/15/19 03/11/20 - Allergies Allergies/Adverse Reactions: Allergies Allergy/AdvReac Type Severity Reaction Status Date / Time No Known Drug Allergies Allergy Verified 12/01/22 19:07 - Social History Does the pt smoke?: Yes Smoking Status: Current every day smoker Does the pt drink ETOH?: No Does the pt have substance abuse?: Yes - Immunizations Immunizations are current?: Yes - POLST Patient has POLST: No POLST Status: Full Code PD ED PE NORMAL - Vitals Vital signs reviewed: Yes - General General: Alert and oriented X 3, No acute distress - HEENT HEENT: Atraumatic, PERRL, EOMI, Ears normal, Moist mucous membranes, Pharynx benign - Neck Neck: Supple, no meningeal sign, No bony TTP - Cardiac Cardiac: RRR, Strong equal pulses - Respiratory Respiratory: No respiratory distress, Clear bilaterally - Abdomen Abdomen: Soft, Non tender, Non distended - Back Back: No spinal TTP - Derm Derm: Warm and dry - Extremities Extremities: No edema, No calf tenderness / cord - Neuro Neuro: Alert and oriented X 3, medical insurance verifier 2-12 intact, No motor deficit, No sensory deficit, Normal speech Eye Opening: Spontaneous Motor: Obeys Commands Verbal: Oriented GCS Score: 15 - Psych Psych: Normal mood, Normal affect Results - Vitals Vitals: Vital Signs - 24 hr 12/01/22 12/01/22 12/01/22 18:57 20:41 21:00 Temperature 36.8 C Heart Rate 104 H 80 100 Respiratory 18 18 18 Rate Blood Pressure 128/43 L 122/61 92/50 L O2 Saturation 97 98 98 Oxygen O2 Source Room air - Labs Labs: Laboratory Tests 12/01/22 12/01/22 12/01/22 19:00 19:00 19:51 WBC 6.4 RBC 3.88 L Hgb 12.6 L Hct 37.4 L MCV 96.4 H MCH 32.5 H MCHC 33.7 RDW 15.7 H Plt Count 304 MPV 8.1 Neut # (Auto) 4.4 Lymph # (Auto) 0.7 L [place] # (Auto) 1.2 H Eos # (Auto) 0.0 Baso # (Auto) 0.0 Absolute Nucleated RBC 0.00 Nucleated RBC % 0.0 VBG pH VBG pCO2 VBG pO2 VBG HCO3 VBG Total CO2 VBG O2 Saturation VBG Base Excess Sodium Potassium Chloride Carbon Dioxide Anion Gap BUN Creatinine Estimated GFR (MDRD) Glucose POC Whole Bld Glucose Calcium Total Bilirubin AST ALT Alkaline Phosphatase Total Protein Albumin Globulin Albumin/Globulin Ratio Lipase Urine Color YELLOW Urine Clarity CLEAR Urine pH 7.0 Ur Specific [place] 1.010 Urine Protein NEGATIVE Urine Glucose (UA) NEGATIVE Urine Ketones TRACE Urine Occult Blood NEGATIVE Urine Nitrite NEGATIVE Urine Bilirubin NEGATIVE Urine Urobilinogen 0.2 (NORMAL) Ur Leukocyte Esterase NEGATIVE Ur Microscopic Review NOT INDICATED Urine Culture Comments NOT INDICATED Urine Opiates Screen NEGATIVE Ur Oxycodone Screen NEGATIVE Urine Methadone Screen NEGATIVE Ur Propoxyphene Screen NEGATIVE Ur Barbiturates Screen NEGATIVE Ur Tricyclics Screen NEGATIVE Ur Phencyclidine Scrn NEGATIVE Ur Amphetamine Screen NEGATIVE U Methamphetamines Scrn NEGATIVE U Benzodiazepines Scrn NEGATIVE Urine Cocaine Screen NEGATIVE U Cannabinoids Screen POSITIVE H Ethyl Alcohol Serum Ketones 12/01/22 12/01/22 12/01/22 19:51 19:51 20:34 WBC RBC Hgb Hct MCV MCH MCHC RDW Plt Count MPV Neut # (Auto) Lymph # (Auto) [place] # (Auto) Eos # (Auto) Baso # (Auto) Absolute Nucleated RBC Nucleated RBC % VBG pH 7.429 H VBG pCO2 39.5 L VBG pO2 19.9 L VBG HCO3 25.6 VBG Total CO2 26.8 VBG O2 Saturation 41.0 L VBG Base Excess 1.3 Sodium 130 L Potassium 4.5 Chloride 96 L Carbon Dioxide 30 Anion Gap 4.0 L BUN 15 Creatinine 1.1 Estimated GFR (MDRD) 66 L Glucose 128 H POC Whole Bld Glucose 127 H Calcium 9.0 Total Bilirubin 0.3 AST 56 H ALT 36 Alkaline Phosphatase 56 Total Protein 6.3 L Albumin 4.1 Globulin 2.2 Albumin/Globulin Ratio 1.9 Lipase 15 Urine Color Urine Clarity Urine pH Ur Specific [place] Urine Protein Urine Glucose (UA) Urine Ketones Urine Occult Blood Urine Nitrite Urine Bilirubin Urine Urobilinogen Ur Leukocyte Esterase Ur Microscopic Review Urine Culture Comments Urine Opiates Screen Ur Oxycodone Screen Urine Methadone Screen Ur Propoxyphene Screen Ur Barbiturates Screen Ur Tricyclics Screen Ur Phencyclidine Scrn Ur Amphetamine Screen U Methamphetamines Scrn U Benzodiazepines Scrn Urine Cocaine Screen U Cannabinoids Screen Ethyl Alcohol < 10.0 Serum Ketones NEGATIVE 12/01/22 21:08 WBC RBC Hgb Hct MCV MCH MCHC RDW Plt Count MPV Neut # (Auto) Lymph # (Auto) [place] # (Auto) Eos # (Auto) Baso # (Auto) Absolute Nucleated RBC Nucleated RBC % VBG pH VBG pCO2 VBG pO2 VBG HCO3 VBG Total CO2 VBG O2 Saturation VBG Base Excess Sodium Potassium Chloride Carbon Dioxide Anion Gap BUN Creatinine Estimated GFR (MDRD) Glucose POC Whole Bld Glucose 115 H Calcium Total Bilirubin AST ALT Alkaline Phosphatase Total Protein Albumin Globulin Albumin/Globulin Ratio Lipase Urine Color Urine Clarity Urine pH Ur Specific [place] Urine Protein Urine Glucose (UA) Urine Ketones Urine Occult Blood Urine Nitrite Urine Bilirubin Urine Urobilinogen Ur Leukocyte Esterase Ur Microscopic Review Urine Culture Comments Urine Opiates Screen Ur Oxycodone Screen Urine Methadone Screen Ur Propoxyphene Screen Ur Barbiturates Screen Ur Tricyclics Screen Ur Phencyclidine Scrn Ur Amphetamine Screen U Methamphetamines Scrn U Benzodiazepines Scrn Urine Cocaine Screen U Cannabinoids Screen Ethyl Alcohol Serum Ketones - Rads (name of study) Head CT Relevant Findings:: Final report received, See rad report PD Medical Decision Making - ED course Complexity details: reviewed results, re-evaluated patient, considered differential, d/w patient ED course: Patient is well-appearing, nontoxic. Afebrile. No acute findings on head CT. Laboratory testing does not show any acute abnormalities, mild hyponatremia, but this is chronic for the patient. Creatinine is at his baseline. Headache resolved with a dose of droperidol IM. Patient states he feels much better. Requesting food. No emergency medical condition at this time. We will have the patient follow-up with his PCP for further care and return if he worsens. Patient counseled regarding signs and symptoms for which I believe and urgent re-evaluation would be necessary. Patient with good understanding of and agreement to plan and is comfortable going home at this time This document was made in part using voice recognition software. While efforts are made to proofread this document, sound alike and grammatical errors may occur. Departure - Departure Disposition: 01 Home, Self Care Clinical Impression: Hyponatremia Headache Qualifiers: Headache type: unspecified Headache chronicity pattern: unspecified pattern Intractability: not intractable Qualified Code(s): R51.9 - Headache, unspecified Condition: Good Instructions: ED Cephalgia Unspecified Follow-Up: your,doctor in 3 days [Other] Comments: Please follow up with your doctor for further care. Return if you worsen. Drink plenty of fluids. Your head CT does not show any acute abnormalities today. Your labs are near your normal baseline values. Forms: PCP List
[2022-12-01 20:15] LABS: ALBUMIN 4.1 g/dL (3.2-5.5); ALBUMIN/GLOBULIN RATIO 1.9 (1.0-2.2); ALKALINE PHOSPHATASE 56 IU/L (42-121); ALT ALANINE AMINOTRANSFERASE 36 IU/L (10-60); AST ASPARTATE AMINOTRANSFERASE 56 IU/L (10-42); BILIRUBIN,TOTAL 0.3 mg/dL (0.2-1.0); BUN - BLOOD UREA NITROGEN 15 mg/dL (6-20); CARBON DIOXIDE - CO2 30 mmol/L (21-32); CHLORIDE 96 mmol/L (101-111); CREATININE 1.1 mg/dL (0.6-1.3); ETOH - ETHANOL < 10.0 mg/dL; GFR - MDRD 66 (>89); GLUCOSE 128 mg/dL (74-104); LIPASE 15 U/L (11-82); POTASSIUM 4.5 mmol/L (3.5-4.5); SODIUM 130 mmol/L (135-145); TOTAL PROTEIN 6.3 g/dL (6.4-8.9)
[2022-12-01 20:23] LABS: KETONES, SERUM (ACETEST) NEGATIVE (NEGATIVE)
[2022-12-01 20:44] VITALS: O2SAT 98
--- NOTE | 2022-12-01 20:51 | CT Report ---
PROCEDURE: HEAD WO INDICATIONS: headache, dizzy TECHNIQUE: Noncontrast 4.5 mm thick angled axial sections acquired from the foramen magnum to the vertex. For r adiation dose reduction, the following was used: automated exposure control, adjustment of mA and/or kV according to patient size. COMPARISON: 07/16/2022 FINDINGS: Image quality: Good CSF spaces: Basal cisterns are patent. Lateral ventricles are symmetric. Volume: Vascular calcifications. Periventricular white matter disease is commonly seen with chronic m icroangiopathy. Volume loss is present. These findings are mild to moderate. Brain: No intracranial hemorrhage. Ashley-white differentiation is grossly maintained. Craniofacial structures: Possible lipoma at the left scalp, unchanged mild paranasal sinus mucosal th ickening of the anterior ethmoids. IMPRESSION: No acute intracranial abnormality. If there is high concern for parenchymal pathology, consider furth er evaluation with MRI. Reviewed by: Alphonso Sierra MD on 12/01/2022 8:50 PM PDT Approved by: Alphonso Sierra MD on 12/01/2022 8:50 PM PDT Station ID: [id number]
[2022-12-01 21:45] VITALS: BP 101/61
== END 2022-12-01 21:38 | disposition home or self-care (01) ==
LOC: ED 18:53
DX: R51.9 Headache, unspecified (principal); E87.1 Hypo-osmolality and hyponatremia; F17.200 Nicotine dependence, unspecified, uncomplicated; Q79.1 Other congenital malformations of diaphragm
CPT/HCPCS: 36415; 70450; 76705; 80053; 80306; 81003; 82009; 82803; 83690; 85025; 96372; 99283; 99284; G0480; 80320; 81001; 87086

== ENCOUNTER 2023-02-12 09:08 | Outpatient (CLI) | payer MEDICARE, OTHER ==
[2023-02-12 09:52] LABS: ALBUMIN 4.5 g/dL (3.2-5.5); ALBUMIN/GLOBULIN RATIO 1.6 (1.0-2.2); BILIRUBIN,TOTAL 0.7 mg/dL (0.2-1.0); CALCIUM 10.1 mg/dL (8.5-10.3); CREATININE 1.1 mg/dL (0.6-1.3); POTASSIUM 4.8 mmol/L (3.5-4.5); TOTAL PROTEIN 7.3 g/dL (6.4-8.9)
[2023-02-12 10:35] LABS: ESTIMATED AVERAGE GLUCOSE 200 mg/dL (70-100); HEMOGLOBIN A1c% 8.6 % (4.27-6.07)
== END 2023-02-12 09:09 | disposition home or self-care (01) ==
LOC: LAB 09:08
PROVIDERS: ATTEND Internal Medicine
DX: E10.8 Type 1 diabetes mellitus with unspecified complications (principal)
CPT/HCPCS: 36415; 80053; 83036

== ENCOUNTER 2024-02-02 01:28 | Observation (INO) ==
[2024-02-02] MEDS ORDERED: DEXTROSE 50% ABBOJECT 25 GM/50 ML SYRINGE ONE (01:34)
--- NOTE | 2024-02-02 01:51 | ED Physician Documentation ---
History of Present Illness Stated complaint Stated Complaint: BLOOD SUGAR ISSUE Chief complaint Chief Complaint: General History obtained from History obtained from: Patient Additonal information Additional information: 68yM with pmh DM p/w accidental overdose with novolog. patient called ems stating his sugar was reading low and then injected himself with something that matrix repairer believe was 7u lantus around midnight. He then had fingerstick 33 on scene, received 250cc D10 with improvement to glucose 130. patient had mild slurred speech on arrival that then improved. ems again found his fingerstick to be low just prior to arrival in the ED with fingerstick 21, improving with another amp of D10. patient denies other complaints and states he's been having trouble keeping track of his insulin regimen. Meds/Allgy Home Medications Ambulatory Orders Medication Instructions Recorded Confirmed aspirin 81 mg tablet,delayed 81 mg PO DAILY 07/03/15 03/11/20 release (Adult Low Dose Aspirin) insulin aspart U-100 100 unit/mL 15 - 30 unit subcut .CONTINUOUS 08/15/19 03/11/20 subcutaneous solution (Novolog U-100 Insulin aspart) levothyroxine 137 mcg tablet 137 mcg PO QDAC 08/15/19 03/11/20 (Synthroid) lisinopril 5 mg tablet 5 mg PO DAILY 08/15/19 03/11/20 Allergies Allergies Allergy/AdvReac Type Severity Reaction Status Date / Time No Known Drug Allergies Allergy Verified 02/02/24 01:38 [facility] Social History Social History Smoking Status: Current every day smoker How many cigarettes a day do you smoke? (20 cigarettes=1 Pk): 4 Do you vape?: No Living arrangement: At home Living Condition: With spouse/s.o. Relationship: Do you feel safe in your home environment?: Yes Suffered physical, verbal, emotional, or financial abuse?: No History of Abuse: No Frequency: Occasional Are you sexually active?: Yes POLST Patient has POLST: No POLST Status: Full Code Exam Constitutional normal general appearance and no apparent distress HENMT normocephalic and head/scalp atraumatic Eyes PERRL Neck/C-Spine visual inspection normal Chest inspection of chest normal Respiratory breath sounds equal bilaterally and normal respiratory effort Cardiovascular normal heart rate noted and regular rhythm noted Gastrointestinal abdomen normal to inspection, abdomen soft to palpation and nontender to palpation Back/Pelvis spine normal to inspection Extremities normal to inspection Neurology GCS 15 Psychiatry oriented x3 Skin skin color normal Results Vitals Vitals: Vital Signs - 24 hr 02/02/24 01:34 02/02/24 01:46 Temperature 36.4 C L Temperature Source Tympanic Pulse Rate 73 Respiratory Rate 16 Blood Pressure 129/56 L O2 Saturation 97 O2 Source Room air Pain Intensity 0 0 Oxygen O2 Source Room air Labs Labs: Laboratory Tests 02/02/24 02/02/24 01:42 01:56 WBC 11.8 H RBC 3.64 L Hgb 11.0 L Hct 32.7 L MCV 89.8 MCH 30.2 MCHC 33.6 RDW 16.9 H Plt Count 350 MPV 8.6 Neut # (Auto) 8.6 H Lymph # (Auto) 1.9 Gregory # (Auto) 0.9 Eos # (Auto) 0.3 Baso # (Auto) 0.1 Absolute Nucleated RBC 0.00 Nucleated RBC % 0.0 VBG pH 7.379 VBG pCO2 42.4 VBG pO2 41.5 VBG HCO3 24.5 VBG Total CO2 25.8 VBG O2 Saturation 80.4 H VBG Base Excess -0.7 Sodium 135 Potassium 3.0 L Chloride 101 Carbon Dioxide 28 Anion Gap 6.0 BUN 18 Creatinine 1.1 Estimated GFR (MDRD) 66 L Glucose 152 H Calcium 9.0 Total Bilirubin 0.3 AST 16 ALT 10 Alkaline Phosphatase 48 Total Protein 6.1 L Albumin 4.0 Globulin 2.1 Albumin/Globulin Ratio 1.9 Lipase 13 Serum Ketones NEGATIVE PD Medical Decision Making ED course ED course: 68yM presents with hypoglycemia after accidentally self administering 7U novolog around midnight after his glucometer was already reading low. cbc, abdominal panel, serum ketones, vbg ordered, along with u/a. Poison control recommended monitoring for 6 hours from most recent intervention. Patient had reccurrent hypoglycemia in the ED so admitted him to observation with Dr. suzan martinesist. Discharge Plan Discharge Patient Disposition: ED Place in Observation Condition: Fair Clinical Impression: Hypoglycemia Prescriptions: No Action aspirin [Adult Low Dose Aspirin] 81 MG tablet,delayed release (DR/EC) 81 mg PO DAILY lisinopril 5 MG tablet 5 mg PO DAILY levothyroxine [Synthroid] 137 MCG tablet 137 mcg PO QDAC insulin aspart U-100 [Novolog U-100 Insulin aspart] 100 UNIT/ML solution 15 - 30 unit subcut .CONTINUOUS Rx Instructions: VARIES DAILY DELIVERED VIA INSULIN PUMP Print Language: Sami Stand Alone Forms: PCP List
[2024-02-02 01:55] LABS: BASOPHILS # (AUTO) 0.1 10^3/uL (0.0-0.1); BASOPHILS % (AUTO) 0.6 %; EOSINOPHILS # (AUTO) 0.3 10^3/uL (0.0-0.7); EOSINOPHILS % (AUTO) 2.7 %; HCT - HEMATOCRIT 32.7 % (42.0-52.0); LYMPHOCYTES # (AUTO) 1.9 10^3/uL (1.5-3.5); MEAN CORPUSCULAR HEMOGLOBIN 30.2 pg (27.0-31.0); MEAN CORPUSCULAR HGB CONC 33.6 g/dL (32.0-36.0); MEAN CORPUSCULAR VOLUME 89.8 fL (80.0-94.0); MEAN PLATELET VOLUME 8.6 fL (7.4-11.4); MONOCYTES # (AUTO) 0.9 10^3/uL (0.0-1.0); MONOCYTES % (AUTO) 7.4 %; NEUTROPHILS # (AUTO) 8.6 10^3/uL (1.5-6.6); PLT - PLATELET COUNT 350 10^3/uL (130-450); RED BLOOD COUNT 3.64 10^6/uL (4.70-6.10); RED CELL DISTRIBUTION WIDTH 16.9 % (12.0-15.0); WHITE BLOOD COUNT 11.8 x10^3/uL (4.8-10.8)
[2024-02-02 02:00] LABS: KETONES, SERUM (ACETEST) NEGATIVE (NEGATIVE)
[2024-02-02 02:01] LABS: VBG BASE EXCESS -0.7 mmol/L (-2 - +2); VBG HCO3 24.5 mmol/L (23-28); VBG OXYGEN SATURATION 80.4 % (60-80); VBG PCO2 42.4 mmHg (41-51); VBG PH 7.379 (7.31-7.41); VBG PO2 41.5 mmHg (25-47); VBG TOTAL CO2 25.8 mmol/L (24-29)
[2024-02-02 02:13] LABS: ALBUMIN/GLOBULIN RATIO 1.9 (1.0-2.2); ALKALINE PHOSPHATASE 48 IU/L (42-121); ALT ALANINE AMINOTRANSFERASE 10 IU/L (10-60); AST ASPARTATE AMINOTRANSFERASE 16 IU/L (10-42); BILIRUBIN,TOTAL 0.3 mg/dL (0.2-1.0); BUN - BLOOD UREA NITROGEN 18 mg/dL (6-20); CARBON DIOXIDE - CO2 28 mmol/L (21-32); CHLORIDE 101 mmol/L (101-111); CREATININE 1.1 mg/dL (0.6-1.3); GFR - MDRD 66 (>89); GLUCOSE 152 mg/dL (74-104); LIPASE 13 U/L (11-82); SODIUM 135 mmol/L (135-145); TOTAL PROTEIN 6.1 g/dL (6.4-8.9)
[2024-02-02] MEDS: POTASSIUM CHLORIDE 20 MEQ/15 ML UDC PO STA (02:36)
[2024-02-02] MEDS ORDERED: POTASSIUM CHLORIDE 20 MEQ/15 ML UDC ONE (02:42)
[2024-02-02] MEDS ORDERED: SODIUM CHLORIDE FLUSH 0.9% 10 ML SYRINGE IVP PRN (03:16)
[2024-02-02] MEDS ORDERED: ONDANSETRON 4 MG/2 ML VIAL IVP PRN (03:16)
[2024-02-02] MEDS ORDERED: ACETAMINOPHEN 325 MG TABLET PO PRN (03:16)
[2024-02-02] MEDS: ONDANSETRON 4 MG/2 ML VIAL IVP STA (03:26)
--- NOTE | 2024-02-02 03:27 | HISTORY & PHYSICAL EXAMINATION ---
Chief Complaint Chief Complaint Chief Complaint: Confusion with low blood sguar History of Present Illness Admitted From Admitted From:: ED History Obtained From Records Reviewed: EMR History obtained from: Patient and ED staff Exam Limitations: Tele medicine History of Present Illness HPI Comment/Other: 68YOM c insulin dependent DM2, HTN, and hypothyroidism who presents to the hypoglycemia and confused. Reportedly, patient had low blood sugar and was already confused this morning. His glucometer is set to alarm for blood sugar <80 and >180. His alarm went off and awoke him up tonight. He oddly felt low sugar but was confused and ended up giving himself more insulin. EMS was called and patient was brought into the ED for low blood sugar. He had x 2 amps of D50 in the ambulance and x2 amps of D50 in the ED. pateint denies infection. no fever. no URI sxs. No n/v/d. No dysuria. no denies SI patient currently on Dextrose drips. ED staff reached out to Hospital Medicine for assistance with further medical management of patient's hypoglycemia Review of Systems Status of ROS: 10 or more systems reviewed and unremarkable except as noted in history and below PFSH Social History Social History Smoking Status: Current every day smoker How many cigarettes a day do you smoke? (20 cigarettes=1 Pk): 4 Do you vape?: No Living arrangement: At home Living Condition: With spouse/s.o. Relationship: Do you feel safe in your home environment?: Yes Suffered physical, verbal, emotional, or financial abuse?: No History of Abuse: No Frequency: Occasional Are you sexually active?: Yes POLST Patient has POLST: No POLST Status: Full Code Meds/Allgy Home Medications Ambulatory Orders Medication Instructions Recorded Confirmed aspirin 81 mg tablet,delayed 81 mg PO DAILY 07/03/15 03/11/20 release (Adult Low Dose Aspirin) insulin aspart U-100 100 unit/mL 15 - 30 unit subcut .CONTINUOUS 08/15/19 03/11/20 subcutaneous solution (Novolog U-100 Insulin aspart) levothyroxine 137 mcg tablet 137 mcg PO QDAC 08/15/19 03/11/20 (Synthroid) lisinopril 5 mg tablet 5 mg PO DAILY 08/15/19 03/11/20 Allergies Allergies Allergy/AdvReac Type Severity Reaction Status Date / Time No Known Drug Allergies Allergy Verified 02/02/24 01:38 Exam Constitutional normal general appearance and no apparent distress HENMT normocephalic and head/scalp atraumatic Eyes PERRL Neck/C-Spine visual inspection normal Chest inspection of chest normal Respiratory breath sounds equal bilaterally and normal respiratory effort Cardiovascular normal heart rate noted and regular rhythm noted Gastrointestinal abdomen normal to inspection, abdomen soft to palpation and nontender to palpation Back/Pelvis spine normal to inspection Extremities normal to inspection Neurology GCS 15 Psychiatry oriented x3 Skin skin color normal Conclusion/Plan Problem List (1) Hypoglycemia: Plan: 2/2 ovderdose insulin. continue with q2hr POCT glucose monitoring and continue glucose support. x 1 glucagon given multiple episodes of hypoglycemia despite dextrose iv. followup am labs. monitor for infection (2) Hypothyroidism: Plan: managed. continue levothyroxine. monitor TSH and FT4. (3) Insulin dependent diabetes mellitus: Plan: on lantus 22 and sliding scale novolog at home. holding insulin regimen and cover with only mild ssi. monitor blood sugar with accucheck (4) Hypertension: Plan: controlled. continue home losartan. monitor blood pressure with repeat vital checks Lab Results Lab results reviewed: Yes 02/02/24 01:42 02/02/24 01:42 Core Measures Anticipated LOS I expect patient to be DC'd or transferred within 96 hours.: Yes Issues Hospital Issues and Management Plan: The patient consented to receive this telemedicine service, which I performed via live two-way audiovisual equipment. The patient is at ([facility]) and I am physically in [facility]. A nurse assisted me in the visit. Full code SCDs Observation Wilder Vazquez DO Internal Medicine Sound Tele Apiculture Teacher DVT/VTE - Prophylaxis VTE/DVT Device ordered at admit?: Yes Telemedicine Consult Details Provider Location & Consult Time Telemedicine consultation conducted via videoconferencing?: Yes List names and roles of persons who participated in consult:: Patient and ED staff Telemedicine provider location:: [facility] Time Telemedicine consult began:: 03:08 Time Telemedicine consult completed:: 04:08
[2024-02-02] MEDS: DEXTROSE 50% ABBOJECT 25 GM/50 ML SYRINGE IVP STA (03:30)
[2024-02-02] MEDS: DEXTROSE 5%-0.9% NACL 1,000 ML IV SCH (03:33)
[2024-02-02] MEDS: FAMOTIDINE 20 MG/2 ML VIAL IVP STA (03:33)
[2024-02-02 05:15] VITALS: O2SAT 98
[2024-02-02 05:19] LABS: HCT - HEMATOCRIT 39.4 % (42.0-52.0); HGB - HEMOGLOBIN 12.8 g/dL (14.0-18.0); MEAN CORPUSCULAR HEMOGLOBIN 29.9 pg (27.0-31.0); MEAN CORPUSCULAR HGB CONC 32.5 g/dL (32.0-36.0); MEAN CORPUSCULAR VOLUME 92.1 fL (80.0-94.0); MEAN PLATELET VOLUME 8.3 fL (7.4-11.4); RED BLOOD COUNT 4.28 10^6/uL (4.70-6.10); WHITE BLOOD COUNT 12.1 x10^3/uL (4.8-10.8)
[2024-02-02 05:34] LABS: CALCIUM 9.1 mg/dL (8.5-10.3); POTASSIUM 3.7 mmol/L (3.5-4.5)
[2024-02-02 05:58] LABS: THYROID STIMULATING HORMONE 2.7 uIU/mL (0.34-5.60)
[2024-02-02] MEDS: GLUCAGON 5 MG in DEXTROSE 5% 45 ML IV STA (06:02)
[2024-02-02] MEDS: LEVOTHYROXINE 75 MCG TABLET PO SCH (07:46)
[2024-02-02] MEDS: LEVOTHYROXINE 100 MCG TABLET PO SCH (07:46)
[2024-02-02] MEDS: lisinopriL 5 MG TABLET PO SCH (08:09)
[2024-02-02] MEDS: PANTOPRAZOLE 40 MG VIAL IV SCH (08:09)
[2024-02-02] MEDS: ASPIRIN EC 81 MG TABLET PO SCH (08:09)
[2024-02-02] MEDS: SODIUM CHLORIDE FLUSH 0.9% 10 ML SYRINGE IVP SCH (08:11)
[2024-02-02] MEDS: INSULIN LISPRO 300 UNIT/3 ML PEN SUBQ SCH (08:11)
--- NOTE | 2024-02-02 08:28 | Discharge Summary ---
"Discharge Summary Admit Date: 02/02/24 Discharge Date: 02/02/24 Discharging Provider: Dr. Neil Rosas Code Status: Attempt Resuscitation DIAGNOSES Admission Diagnoses: Hypoglycemia Hypothyroidism Insulin-dependent diabetes mellitus Hypertension Discharge Diagnoses with Status of Each Condition: Hypoglycemiapatient with low blood glucose at home. Actually took more insulin. Was given 1 dose of glucagon and the ED. Started on a D5 drip overnight. Glucose is now resolved. Continue home insulin regimen. Altered mental statusdue to hypoglycemia, now resolved, patient at baseline. Leukocytosislikely reactive to above. Denies any fevers, chills, cough, abdominal pain. Advised to follow-up with a primary care physician in a week. Diabetes type 1continue home regimen. Hypertensioncontinue home medications. Hypothyroidismcontinue home medications. HPI History of Present Illness: Per Dr. Hdz: 68YOM c insulin dependent DM2, HTN, and hypothyroidism who presents to the hypoglycemia and confused. Reportedly, patient had low blood sugar and was already confused this morning. His glucometer is set to alarm for blood sugar <80 and >180. His alarm went off and awoke him up tonight. He oddly felt low sugar but was confused and ended up giving himself more insulin. EMS was called and patient was brought into the ED for low blood sugar. He had x 2 amps of D50 in the ambulance and x2 amps of D50 in the ED. pateint denies infection. no fever. no URI sxs. No n/v/d. No dysuria. no denies SI patient currently on Dextrose drips. ED staff reached out to Hospital Medicine for assistance with further medical management of patient's hypoglycemia CONSULTS | PROCEDURES Consultations: None Procedures: None HOSPITAL COURSE Hospital Course: Patient is a 68-year-old male with history of type 1 diabetes mellitus, hypertension, hypothyroidism who presented due to altered mentation. He woke up because his glucose monitor told him that he had low sugars. He was confused, and accidentally gave himself some insulin. When EMS arrived, his sugars were as low as 20. He received amps of D50. He was also given a dose of glucagon down in the emergency room. He was started on D5 drip, and admitted for closer monitoring. Since being admitted, he has been eating and drinking well. Glucose drip was turned off. Sugars have normalized. Plan is to continue his home insulin regimen, and his home medications. Advised to follow-up with his primary care physician in a week. He does have a mild leukocytosis but denies any infectious signs including fevers, chills, cough, productive cough, abdominal pain, urinary symptoms. As such, patient is deemed stable for discharge home. ALLERGIES Allergies Allergy/AdvReac Type Severity Reaction Status Date / Time No Known Drug Allergies Allergy Verified 02/02/24 01:38 MEDICATIONS Ambulatory Orders Medication Instructions Recorded Confirmed aspirin 81 mg tablet,delayed 81 mg PO DAILY 07/03/15 03/11/20 release (Adult Low Dose Aspirin) insulin aspart U-100 100 unit/mL 15 - 30 unit subcut .CONTINUOUS 08/15/19 03/11/20 subcutaneous solution (Novolog U-100 Insulin aspart) levothyroxine 137 mcg tablet 137 mcg PO QDAC 08/15/19 03/11/20 (Synthroid) lisinopril 5 mg tablet 5 mg PO DAILY 08/15/19 03/11/20 PHYSICAL EXAM AT DISCHARGE General Appearance: positive No acute distress and Alert; negative Anxious or Lethargic Eyes Bilateral: positive Normal inspection, PERRL and EOMI ENT: positive ENT inspection nml, Pharynx nml and No signs of dehydration Neck: positive Nml inspection, Thyroid nml and No JVD Respiratory: positive Chest non-tender, No respiratory distress and Breath sounds nml; negative Wheezes, Rales or Rhonchi Cardiovascular: positive Regular rate & rhythm, No murmur and No gallop; negative Systolic murmur Peripheral Pulses: positive 2+ Abdomen: positive Non-tender, No organomegaly, Nml bowel sounds and No distention Back: positive Nml inspection; negative CVA tenderness (R) or CVA tenderness (L) Skin: positive Color nml, No rash, Warm and Dry Extremities: positive Non-tender, Full ROM, Nml appearance and No pedal edema Neurologic/Psychiatric: positive Oriented x3, Motor nml and Mood/affect nml; negative Facial droop or Slurred/abnml speech LABS 02/02/24 05:12 02/02/24 05:12 DIAGNOSTIC IMAGING Diagnostic Imaging Results: Final report reviewed QUALITY (Female Hip Fx Only) Was patient sent home on osteoporosis medication?: No FOLLOW UP Follow Up: Follow up with primary care physician. TIME SPENT Time Spent in Discharge (Minutes): 30 Discharge Plan Discharge Patient Disposition: Home, Self Care Condition: Fair Prescriptions: Continued aspirin [Adult Low Dose Aspirin] 81 MG tablet,delayed release (DR/EC) 81 mg PO DAILY lisinopril 5 MG tablet 5 mg PO DAILY levothyroxine [Synthroid] 137 MCG tablet 137 mcg PO QDAC insulin aspart U-100 [Novolog U-100 Insulin aspart] 100 UNIT/ML solution 15 - 30 unit subcut .CONTINUOUS Rx Instructions: VARIES DAILY DELIVERED VIA INSULIN PUMP Diet: Diabetic Health Concerns: You came in because you had low sugars. He woke up in the [place] to an alarm, and were confusing, and may have actually given yourself some more insulin than was required. While you have been here, you have been on a sugar drip. We stopped it this morning, and you have been eating and drinking well. Your sugar levels are now normal, and you have improved you in terms of your confusion. As such, we are able to send you home safely today. Please be mindful of your sugars and administering insulin to yourself. While you are here, your white count was a little bit higher than normal. You do not have any signs of any infection. However, if you start feeling any fevers, chills, worsening cough, abdominal pain, please feel free to return, or follow-up with a primary care physician. We are glad you are feeling better, thank you for allowing us to take care of you. Print Language: [place]an Patient Instructions: Diabetes Low Blood Sugar Ch, Hypoglycemia Steps Stand Alone Forms: PCP List"
[2024-02-02] MEDS: INSULIN GLARGINE-YFGN 300 UNIT/3 ML PEN SUBQ STA (10:33)
[2024-02-02 10:55] LABS: BILIRUBIN,URINE NEGATIVE (NEGATIVE); GLUCOSE, URINE (UA) >=1000 mg/dL (NEGATIVE); KETONES,URINE (UA) NEGATIVE (NEGATIVE); LEUKOCYTE ESTERASE, URINE NEGATIVE (NEGATIVE); NITRITE,URINE NEGATIVE (NEGATIVE); OCCULT BLOOD,URINE NEGATIVE (NEGATIVE); PH,URINE 6.5 PH (5.0-7.5); PROTEIN,URINE NEGATIVE (NEGATIVE); UROBILINOGEN,URINE 0.2 (NORMAL) E.U./dL (NORMAL)
[2024-02-02 11:06] LABS: CLARITY,URINE CLEAR (CLEAR)
--- NOTE | 2024-02-02 11:11 | PHARMACY PROGRESS NOTE ---
Best Possible Medication History Admit Date and Time: 02/02/24316 Home Medications Medication Instructions Recorded Confirmed Type aspirin 81 mg tablet,delayed 81 mg PO DAILY 07/03/15 02/02/24 History release (Adult Low Dose Aspirin) insulin aspart U-100 100 unit/mL 1 - 25 unit subcut Q4H PRN 08/15/19 02/02/24 History subcutaneous solution (Novolog hyperglycemia U-100 Insulin aspart) levothyroxine 137 mcg tablet 137 mcg PO QDAC 08/15/19 02/02/24 History (Synthroid) lisinopril 5 mg tablet 5 mg PO DAILY 08/15/19 02/02/24 History gabapentin 300 mg capsule 300 - 900 mg PO TID PRN NEUROPATHY 02/02/24 02/02/24 History insulin glargine 100 unit/mL (3 20 unit subcut DAILY 02/02/24 02/02/24 History mL) subcutaneous pen (Lantus Solostar U-100 Insulin) pantoprazole 20 mg tablet,delayed 20 mg PO DAILY 02/02/24 02/02/24 History release sertraline 50 mg tablet 100 mg PO DAILY 02/02/24 02/02/24 History Processed by: Pharmacy Medications reviewed in ED?: No Medication History completed: Yes Patient Interview: Completed Secondary Source(s): Pharmacy records and Insurance records [facility] Statement: As the person ultimately responsible for medication therapy, providers are able to order a medication from an existing home medication list in [facility] via the "Reconcile Routine" prior to Confirmation of that medication by child support officer. Such practice is discouraged except when the physician, in their clinical judgment, deems that a medical need exists for a medication without regard to previous use.
[2024-02-02] MEDS ORDERED: INSULIN LISPRO 300 UNIT/3 ML PEN SUBQ SCH (12:00)
== END 2024-02-02 11:15 | disposition home or self-care (01) ==
LOC: ED 01:28 → MS2 01:28
PROVIDERS: ADMIT Internal Medicine; ATTEND Internal Medicine
DX: E03.9 Hypothyroidism, unspecified; D72.829 Elevated white blood cell count, unspecified; Z79.4 Long term (current) use of insulin; T38.3X1A Poisoning by insulin and oral hypoglycemic [antidiabetic] drugs, accidental (unintentional), initial encounter; R41.82 Altered mental status, unspecified; Y92.009 Unspecified place in unspecified non-institutional (private) residence as the place of occurrence of the external cause; F17.200 Nicotine dependence, unspecified, uncomplicated; E10.649 Type 1 diabetes mellitus with hypoglycemia without coma; I10 Essential (primary) hypertension